=== PATIENT | female | born 1995 | race Caucasian/White ===

== ENCOUNTER 2019-10-13 21:58 | Emergency (ER) | payer OTHER, SELFPAY ==
[2019-10-13 22:30] VITALS: BP 110/68; PULSE 122; RESP 16; TEMP 36.5; O2SAT 96
--- NOTE | 2019-10-13 22:32 | ED.BACK ---
HPI - Back Pain/Injury General Chief Complaint: Back Pain/Injury Stated Complaint: back pain Source: patient Mode of arrival: ambulatory Limitations: no limitations History of Present Illness HPI Narrative: Patient presents with some history of suprapubic pain and right flank tenderness with some subjective fever and chills with dysuria with no hematuria does have some nausea with no shortness of breath no chest pain. MD elicited complaint: back pain Onset (ago): day(s) Timing: intermittent Severity: mild Similar Symptoms Previously: Yes Quality: burning Location: right flank Related Data Home Medications Medication Instructions Recorded Confirmed bupropion HCl [Wellbutrin XL] 150 mg PO QAM 10/13/19 10/13/19 clonazepam [Klonopin] 0.5 mg PO DAILY 10/13/19 10/13/19 estradiol 1 mg PO DAILY 10/13/19 10/13/19 hydrocodone-acetaminophen 1 tablet PO Q6H PRN 10/13/19 10/13/19 hydroxyzine HCl 10 mg PO QID PRN 10/13/19 10/13/19 metoprolol succinate 25 mg PO DAILY 10/13/19 10/13/19 quetiapine [Seroquel] 100 mg PO HS 10/13/19 10/13/19 Allergies Allergy/AdvReac Type Severity Reaction Status Date / Time No Known Allergies Allergy Verified 10/13/19 22:24 Review of Systems Review of Systems: All systems reviewed & are unremarkable except as noted in HPI and below PMFSH Past Medical History Medical History Patient denies medical problems Exam Const: General: no acute distress Orientation/consciousness: patient oriented x3 HENMT: Head: normal to inspection Eyes: Pupils: Equal, round and reactive pupils present Neck: Neck: normal visual inspection Chest: Chest palpation & inspection: normal inspection of the chest Resp: Effort & Inspection: normal respiratory effort Cardio: Rate: regular rate and tachycardic Rhythm: regular rhythm GI: Inspection: distended Auscultation: normal bowel sounds : General: Yes CVA tenderness (right flank) Skin: General skin exam: normal color Rashes: no rashes MDM - Back Pain/Injury Lab Data Labs: Lab Results 10/13/19 Range/Units 22:22 Urine Color Pending Urine Appearance Pending Urine pH Pending Ur Specific [place] Pending Urine Protein Pending Urine Glucose (UA) Pending Urine Ketones Pending Ur Blood (Man) Pending Urine Nitrate Pending Urine Bilirubin Pending Urine Urobilinogen Pending Leukocyte Esterase Rfl Pending Critical Care Time Critical Care Time Critical Care Time: No Discharge Plan Discharge Clinical Impression: UTI (urinary tract infection) Qualifiers: Urinary tract infection type: acute cystitis Hematuria presence: without hematuria Qualified Code(s): N30.00 - Acute cystitis without hematuria Patient Disposition: Home, Self-Care Condition: Stable Instructions: Antibiotic Form, Urinary Tract Infection in Women (ED) Additional Instructions: take medicine as prescribed and follow-up with primary care physician if symptoms persist or worsen. Prescriptions: New nitrofurantoin monohyd/m-cryst [Macrobid] 100 mg capsule 100 mg PO Q12H 7 Days Qty: 14 RF: 0 No Action hydrocodone-acetaminophen 5-325 mg Tablet 1 tablet PO Q6H PRN (Reason: Pain) RF: 0 clonazepam [Klonopin] 0.5 mg Tablet 0.5 mg PO DAILY RF: 0 quetiapine [Seroquel] 100 mg Tablet 100 mg PO HS RF: 0 estradiol 1 mg Tablet 1 mg PO DAILY RF: 0 metoprolol succinate 25 mg Tablet Extended Release 24 Hr 25 mg PO DAILY RF: 0 hydroxyzine HCl 10 mg Tablet 10 mg PO QID PRN (Reason: Anxiety) RF: 0 bupropion HCl [Wellbutrin XL] 150 mg Tablet Extended Release 24 Hr 150 mg PO QAM RF: 0 Follow-up/Referrals: Adams Ibarra M.D. [Primary Care Provider] - Time of Disposition: 22:54
[2019-10-13 22:33] LABS: Add Urine Microscopic? YES; Appearance Urine Cloudy (Clear); Bilirubin Urine Negative (Negative); Blood Urine Negative (Negative); Color Urine Yellow (Yellow); Glucose Urine UA Negative (Negative); Ketones Urine 1+ (Negative); Leukocyte Esterase Ur Trace LEU/UL (Negative); Nitrate Urine Positive (Negative); Protein Urine Trace (Negative); Specific Grav Ur 1.025 (1.010-1.020); pH Urine 7.5 (5.0-8.0)
[2019-10-13] MEDS: ONDANSETRON HCL ODT 4 MG TABLET PO (22:36)
[2019-10-13 22:37] LABS: Bacteria Urine 4+ /hpf; RBC Urine 0-2 /hpf (0-2); Squamous Epithelial Cell Urine Moderate /hpf (Few)
[2019-10-13] MEDS: SODIUM CHLORIDE 0.9% IV 1,000 ML 999 ML IV CONT (22:52)
[2019-10-13 23:29] VITALS: BP 108/58; PULSE 113; RESP 20; TEMP 36.6; O2SAT 100
== END 2019-10-13 23:31 | disposition home or self-care (01) ==
PROVIDERS: Emergency Provider Emergency Medicine; PCP Family Medicine
DX: N30.00 Acute cystitis without hematuria (principal)
CPT/HCPCS: 81001; 87077; 87086; 87088; 87186; 96365; 99283; 99284; A9270; J0696; J7030

== ENCOUNTER 2019-12-19 19:20 | Inpatient (IN) | payer OTHER, SELFPAY ==
--- NOTE | ~2019-12-19 | CT_ITS ---
EXAMINATION: CT abdomen pelvis wo con EXAM DATE: 12/19/2019 20:48 INDICATION: Nausea vomiting, hematuria. Right flank pain. Symptoms 3 days. TECHNIQUE: Spiral CT of the abdomen and pelvis was performed without contrast. Axial, coronal and sag ittal images were reviewed. The dose-length product (DLP) for this examination was 200.04 mGy-cm. T he exposure was tailored according to patient size (auto mA exposure control), and iterative reconstr uction (ASIR) was used as additional dose reduction technique. There is no prior study for compariso n. FINDINGS: There are 4 right-sided kidney stones measuring up to 3 mm in size. There is mild fat stran ding surrounding the right kidney, but no hydronephrosis or obstructing stone identified. Patient may have recently passed a ureteral stone, or could have an upper urinary tract infection. The left kidn ey is unremarkable. The uterus and ovaries are unremarkable, no adnexal mass. The bladder is collaps ed at time of imaging limiting evaluation. The liver, spleen, adrenal glands and pancreas are unrema rkable. Gallbladder is unremarkable. No biliary obstruction. There is no retroperitoneal or pelvic lymphadenopathy. Probable appendectomy. The stomach and small bowel are unremarkable. There is expected amount of co lonic stool. No free intraperitoneal gas. The heart is normal in size. There are no pericardial or pleural effusions. The lung bases are unremarkable. Bilateral femoral intramedullary rods. IMPRESSION: Small right nonobstructing nephrolithiasis. Mild nonspecific right perinephric fat strand ing which could indicate a recently passed ureteral stone or upper urinary tract infection, correlate with urinalysis. Reviewed, dictated and finalized at location A. IMPRESSION: Small right nonobstructing nephrolithiasis. Mild nonspecific right perinephric fat stranding which could indicate a recently passed ureteral stone or upper urinary tract infection, correlate with urinalysis.
[2019-12-19 19:38] VITALS: BP 118/52; PULSE 125; RESP 18; TEMP 37.1; O2SAT 100
[2019-12-19] MEDS: SODIUM CHLORIDE 0.9% IV 1,000 ML 999 ML IV CONT (20:04)
[2019-12-19] MEDS: KETOROLAC 30 MG/ML VIAL (*BKC) IV PUSH (20:04)
[2019-12-19] MEDS: ONDANSETRON INJ 4 MG/2 ML VIAL IV PUSH (20:05)
[2019-12-19 20:17] LABS: Appearance Urine Cloudy (Clear); Bilirubin Urine 1+ (Negative); Blood Urine Trace (Negative); Color Urine Yellow (Yellow); Glucose Urine UA Negative (Negative); Ketones Urine Negative (Negative); Nitrate Urine Positive (Negative); Protein Urine 2+ (Negative); Specific Grav Ur 1.015 (1.010-1.020); pH Urine 7.5 (5.0-8.0)
[2019-12-19 20:18] LABS: Add Urine Microscopic? YES; Bacteria Urine 3+ /hpf; Leukocyte Esterase Ur 2+ LEU/UL (Negative); Squamous Epithelial Cell Urine Moderate /hpf (Few); Urobilinogen Urine >=8.0 mg/dL (0.2-1.0); WBC Urine 51-75 /hpf (0-3)
[2019-12-19 20:20] LABS: Alanine Aminotransferase 36 U/L (14-59); Albumin Level 3.4 g/dL (3.4-5.0); Alkaline Phosphatase 123 U/L (46-116); Anion Gap 15.8 mmol/L (7-16); Aspartate Amino Transferase 30 U/L (15-37); Bilirubin,Total 0.8 mg/dL (0.00-1.00); Blood Urea Nitrogen 8 mg/dL (7-18); Carbon Dioxide 26 mmol/L (21-32); Chloride 93 mmol/L (98-108); Estimated CRCL calculation 70 ml/min; Estimated Glomerular Filt Rate > 60; Glucose 98 mg/dL (70-99); Hematocrit 36.8 % (35.0-49.0); Mean Corpuscular HGB Conc 35.3 g/dL (32.0-36.0); Mean Platelet Volume 10.6 fl (9.2-11.8); Osmolality Calculated 272 mOsm/kg (285-295); Platelet Count Result 216 K/mm3 (150-420); Potassium 2.8 mmol/L (3.5-5.1); Red Blood Count 4.49 M/mm3 (4.20-5.40); Red Cell Distribution Width 13.1 % (11.6-14.4); Sodium 132 mmol/L (136-145); Total Protein 8.4 g/dL (6.4-8.2); White Blood Count 6.4 K/mm3 (4.8-10.8)
[2019-12-19 20:21] LABS: Basophils Percent Auto 0.2 % (0.0-1.0); Eosinophils Percent Auto 0.5 % (1.0-6.0); Immature Granulocyte Absolute 0.03 K/mm3 (0.00-0.00); Immature Granulocyte Percent A 0.5 % (0.0-0.0); Lymphocytes Absolute Auto 1.32 K/mm3 (1.10-4.50); Lymphocytes Percent Auto 20.7 % (18.0-42.0); Monocytes Percent Auto 9.2 % (2.0-11.0); Neutrophils Absolute Auto 4.4 K/mm3 (1.7-7.2); Neutrophils Percent Auto 68.9 % (50.0-70.0)
[2019-12-19 20:22] LABS: Basophils Absolute Auto 0.01 K/mm3 (0.00-0.10); Eosinophils Absolute Auto 0.03 K/mm3 (0.02-0.50); Monocytes Absolute Auto 0.59 K/mm3 (0.10-0.90)
[2019-12-19 20:26] LABS: Lactic Acid 1.4 mmol/L (0.4-2.0)
[2019-12-19 20:28] LABS: Pregnancy On Board Control Positive; Specific Gravity Ur 1.015 (1.010-1.035); Urine Pregnancy Test Negative
--- NOTE | 2019-12-19 20:38 | ECG_ITS ---
Measurements Intervals [place] Rate: 111 P: 67 GA: 141 QRS: 97 QRSD: 92 T: 35 QT: 334 QTc: 454 Interpretive Statements SINUS TACHYCARDIA RIGHT AXIS DEVIATION BORDERLINE ST ABNORMALITY- INFERIOR LEADS BASELINE WANDER- I, II, III, AVF ABNORMAL ECG Electronically Signed On 12-20-2019 7:18:16 CDT by Dre Brice D.O.
[2019-12-19 20:40] LABS: Lipase 129 U/L (73-393)
--- NOTE | 2019-12-19 20:47 | ED.FEMALEGU ---
HPI - Female Genitourinary General Chief complaint: Urogenital-Female Stated complaint: fever,kidney pain,throwing up,body pain Source: patient Mode of arrival: ambulatory Limitations: no limitations History of Present Illness HPI Narrative: This is a 24-year-old female presents with some dysuria, body aches currently has no fever but some over the past 2 days has been having a low-grade temperature seen by her primary care physician and ordered a flu and COVID test which were negative. Currently there is mild nausea with no vomiting does have some suprapubic tenderness with bilateral flank tenderness, with no diarrhea constipation no shortness of breath no cough no chest pain or pressure. Patient was recently diagnosed with urinary tract infection approximately 1 to 2 months ago. Currently is taking metoprolol for tachycardia, and has a history of depression, and bipolar. MD elicited complaint: dysuria and back pain Pertinent past history: recurrent UTIs Onset (ago): day(s) Severity: moderate Female Urogenital Radiation: Suprapubic, L Flank and R Flank Severity scale (1-10): 8 Quality of pain: aching Consistency: constant Vaginal discharge: none Vaginal bleeding: none Urinary symptoms: Dysuria, Urgency, Frequency and Flank Pain Related Data Home Medications Medication Instructions Recorded Confirmed bupropion HCl [Wellbutrin XL] 150 mg PO QAM 10/13/19 12/19/19 metoprolol succinate 25 mg PO DAILY 10/13/19 12/19/19 quetiapine [Seroquel] 100 mg PO HS 10/13/19 12/19/19 bupropion HCl 300 mg PO DAILY 12/19/19 12/19/19 clonazepam 1 mg PO DAILY PRN 12/19/19 12/19/19 hydroxyzine pamoate 25 mg PO TID 12/19/19 12/19/19 quetiapine 400 mg PO HS 12/19/19 12/19/19 Allergies Allergy/AdvReac Type Severity Reaction Status Date / Time No Known Allergies Allergy Verified 10/13/19 22:24 Review of Systems Review of Systems: All systems reviewed & are unremarkable except as noted in HPI and below PMFSH Past Medical History Medical History (Updated 12/19/19 @ 21:03 by J Carlos Cline MD) Depression Tachycardia Exam Const: General: no acute distress and alert Nutritional Appearance: well nourished HENMT: Head: normal to inspection Eyes: Conjunctivae: conjunctivae normal Pupils: Equal, round and reactive pupils present EOM: EOMs intact bilaterally Neck: Neck: normal visual inspection Chest: Chest palpation & inspection: normal inspection of the chest Resp: Effort & Inspection: normal respiratory effort Auscultation: clear to auscultation bilaterally Cardio: Rate: tachycardic Rhythm: regular rhythm GI: GI Palp: Yes Soft to palpation : General: Yes no CVA tenderness Skin: General skin exam: normal color Rashes: no rashes Neuro: General: patient oriented x3, moves all extremities, no meningeal signs and no focal motor deficits Extrem: General: normal to inspection Psych: Mental Status: mental status grossly normal Course Vital Signs Vital signs: Vital Signs Temperature 37.1 C 12/19/19 19:38 Pulse Rate 125 H 12/19/19 19:38 Respiratory Rate 18 12/19/19 19:38 Blood Pressure 118/52 L 12/19/19 19:38 Pulse Oximetry 100 12/19/19 19:38 Temperature 37.1 C 12/19/19 19:38 Pulse Rate 125 H 12/19/19 19:38 Respiratory Rate 18 12/19/19 19:38 Blood Pressure 118/52 L 12/19/19 19:38 Pulse Oximetry 100 12/19/19 19:38 MDM - Female Genitourinary Lab Data Attestation: I reviewed the patient's lab results. Result diagrams: 12/19/19 19:58 12/19/19 19:58 Labs: Lab Results 12/19/19 12/19/19 12/19/19 Range/Units 19:46 19:58 19:58 WBC (4.8-10.8) K/mm3 RBC (4.20-5.40) M/mm3 Hgb (12.0-15.0) g/dL Hct (35.0-49.0) % MCV (78.0-102.0) fL MCH (27.0-31.0) pg MCHC (32.0-36.0) g/dL RDW (11.6-14.4) % Plt Count (150-420) K/mm3 MPV (9.2-11.8) fl Immature Gran % (Auto) (0.0-0.0) % Neut % (Auto) (50.
[2019-12-19] MEDS: KCL 20 MEQ/SW 100 ML 100 ML 50 MEQ IVPB (21:01)
[2019-12-19 21:32] VITALS: BP 123/80; PULSE 98; RESP 18; O2SAT 98
[2019-12-19 22:00] VITALS: BP 103/66; PULSE 97; RESP 18; TEMP 37.1; O2SAT 97
[2019-12-19] MEDS: SODIUM CHLORIDE 0.9% IV 1,000 ML 100 ML IV CONT (22:01)
[2019-12-19] MEDS: QUEtiapine FUMARATE 100 MG TABLET 400 MG PO (22:45)
[2019-12-19 23:26] VITALS: RESP 16
[2019-12-20] VITALS (15 sets, daily range): BP systolic 88–121; BP diastolic 30–58; PULSE 97–117; RESP 14–18; TEMP 36.9–38.9; O2SAT 95–98
[2019-12-20] MEDS: ACETAMINOPHEN 325 MG TABLET 650 MG PO ×3 (03:15→15:16)
[2019-12-20] MEDS: KETOROLAC 30 MG/ML VIAL (*BKC) IV PUSH (03:15)
[2019-12-20] MEDS: ONDANSETRON INJ 4 MG/2 ML VIAL IV PUSH ×3 (03:15→20:05)
[2019-12-20] MEDS: SODIUM CHLORIDE 0.9% IV 1,000 ML 999 ML IV CONT (05:19)
--- NOTE | 2019-12-20 05:20 | PC.NURSE ---
Dr. Cline notified of pt's low blood pressure and temperature. New orders received and noted.
[2019-12-20] MEDS: MAGNESIUM HYDROXIDE SUSP 30 ML UDC PO (05:21)
[2019-12-20 05:54] LABS: Basophils Absolute Auto 0.02 K/mm3 (0.00-0.10); Basophils Percent Auto 0.4 % (0.0-1.0); Eosinophils Absolute Auto 0.05 K/mm3 (0.02-0.50); Eosinophils Percent Auto 0.9 % (1.0-6.0); Hematocrit 30.6 % (35.0-49.0); Hemoglobin 10.5 g/dL (12.0-15.0); Immature Granulocyte Absolute 0.04 K/mm3 (0.00-0.00); Immature Granulocyte Percent A 0.7 % (0.0-0.0); Lymphocytes Absolute Auto 1.51 K/mm3 (1.10-4.50); Lymphocytes Percent Auto 26.4 % (18.0-42.0); Mean Corpuscular HGB Conc 34.3 g/dL (32.0-36.0); Mean Corpuscular Hemoglobin 28.8 pg (27.0-31.0); Mean Corpuscular Volume 84.1 fL (78.0-102.0); Mean Platelet Volume 10.8 fl (9.2-11.8); Monocytes Absolute Auto 0.59 K/mm3 (0.10-0.90); Monocytes Percent Auto 10.3 % (2.0-11.0); Neutrophils Absolute Auto 3.5 K/mm3 (1.7-7.2); Neutrophils Percent Auto 61.3 % (50.0-70.0); Platelet Count Result 161 K/mm3 (150-420); Red Blood Count 3.64 M/mm3 (4.20-5.40); Red Cell Distribution Width 13.3 % (11.6-14.4); White Blood Count 5.7 K/mm3 (4.8-10.8)
[2019-12-20 06:21] LABS: Alanine Aminotransferase 42 U/L (14-59); Albumin Level 2.5 g/dL (3.4-5.0); Alkaline Phosphatase 113 U/L (46-116); Anion Gap 14.8 mmol/L (7-16); Aspartate Amino Transferase 48 U/L (15-37); Bilirubin,Total 0.4 mg/dL (0.00-1.00); Blood Urea Nitrogen 11 mg/dL (7-18); Calcium 7.9 mg/dL (8.5-10.1); Carbon Dioxide 24 mmol/L (21-32); Chloride 101 mmol/L (98-108); Estimated CRCL calculation 85 ml/min; Estimated Glomerular Filt Rate > 60; Glucose 112 mg/dL (70-99); Osmolality Calculated 284 mOsm/kg (285-295); Potassium 2.8 mmol/L (3.5-5.1); Sodium 137 mmol/L (136-145); Total Protein 5.9 g/dL (6.4-8.2)
[2019-12-20 06:25] LABS: Thyroid Stimulating Hormone 2.18 uIU/mL (0.36-3.74)
[2019-12-20] MEDS: SODIUM CHLORIDE 0.9% IV 1,000 ML 125 ML IV CONT (07:40)
[2019-12-20] MEDS: hydrOXYzine pamoate 25 MG CAPSULE PO ×2 (09:16→21:33)
[2019-12-20] MEDS: buPROPion HCL XL (24 HR) 150 MG TABCR 450 MG PO (09:16)
[2019-12-20 09:28] LABS: Magnesium 1.8 mg/dL (1.8-2.4); Phosphorus 3.5 mg/dL (2.6-4.7)
[2019-12-20] MEDS: KCL 20 MEQ/SW 100 ML 100 ML 50 MEQ IVPB ×2 (09:29→11:34)
--- NOTE | 2019-12-20 09:54 | PC.NURSE ---
Pain worsening, states has not been able to keep her antidepressant down for x4 days did take today so concerned may get jittery from the high dose, advised to let us knwo and would alert hospitalist if this happens
--- NOTE | 2019-12-20 09:59 | PC.NURSE ---
Tylenol given for flank pain
--- NOTE | 2019-12-20 12:07 | PC.NURSE ---
Eating lunch, more comfortable, fluids infusing, denies pain at this time, second K rider started
[2019-12-20] MEDS: SODIUM CHLORIDE 0.9% IV 1,000 ML 250 ML IV CONT (12:26)
[2019-12-20] MEDS: POTASSIUM CHLORIDE 10 MEQ TABLET 40 MEQ PO ×2 (12:28→17:21)
[2019-12-20] MEDS: MAGNESIUM SULF 2 GM/WATER 50ML 2 GM/50 ML BAG IVPB (13:47)
[2019-12-20 14:12] LABS: Anion Gap 12.7 mmol/L (7-16); Blood Urea Nitrogen 5 mg/dL (7-18); Calcium 7.7 mg/dL (8.5-10.1); Carbon Dioxide 24 mmol/L (21-32); Chloride 107 mmol/L (98-108); Estimated CRCL calculation 103 ml/min; Estimated Glomerular Filt Rate > 60; Glucose 108 mg/dL (70-99); Osmolality Calculated 288 mOsm/kg (285-295); Potassium 3.7 mmol/L (3.5-5.1); Sodium 140 mmol/L (136-145)
--- NOTE | 2019-12-20 14:29 | PM.IMHP ---
H&P: HPI History of Present Illness Chief complaint: fever,kidney pain,throwing up,body pain <Lydia Andres, MOTOR PATROL OPERATOR - Last Filed: 12/20/19 15:55> Narrative: Anne Rosario is a 24 year old female admitted with fever, dysuria, back pain/kidney pain /flank pain, vomiting, body aches. She stated that she had had fever nausea for the last 4 days. But when she tried to see her primary care physician for a fever, they immediately swabbed her for COVID and influenza and sent her home for self isolation. Her influenza testing resulted as negative and her COVID testing was negative as well. She has no shortness of breath, no cough, no chest pain, no sore throat. She stated that she knew this was a kidney stone, as she has had them before. She presented in the ER with some dysuria, some urgency, some frequency, some body aches, but no fever. She told the ER physician over the past 2 days she had been having a low-grade fever. When she was examined in the emergency room, she had some mild nausea but no vomiting. She also had some suprapubic tenderness with bilateral flank tenderness. Her pain in the Emergency Room seem to be a constant ache. There was no diarrhea present, no constipation, no shortness of breath, no cough, no chest pain or pressure. She informed the ED physician that she had been diagnosed with a urinary tract infection about 1-2 months prior. She is currently taking 25 mg daily metoprolol for tachycardia, and has a history of depression, UTIs, and bipolar. Her EKG at admission showed tachycardia, sinus tach with a rate of 111 beats per minute. She was admitted with acute pyelonephritis, hypotension/hypovolumia, acute UTI, hematuria, and acute hypokalemia. Her potassium was 2.8 at admission. She was treated with a dose of potassium overnight. Her potassium was again 2.8 this morning. She was treated with 40 of IV K as well as 40 of oral K this morning, with a repeat potassium level schedule for this afternoon. The glucose was 98 admission and her lactic acid was 1.4, alkaline phosphatase was elevated at 123. Her UA was cloudy positive for nitrates, with 50-75 of WBCs, and 3+ bacteria. Her test was negative. Her white count was 6.4 yesterday and then today 5.7. Her lipase was normal at 129 With a history of substance abuse and recovery, we will do our best to avoid narcotics such as [place] or Percocet or morphine or Dilaudid. We will use oral and or IV Tylenol as well as rare occasional Toradol. We will avoid tramadol at this time. Her 4 kidney stones are 3 mm and smaller, so it is doubtful that she will need lithotripsy any time soon. <Lydia Andres MOTOR PATROL OPERATOR - Last Filed: 12/20/19 15:55> Review of Systems Review of Systems: All systems reviewed & are unremarkable except as noted in HPI and below <Lydia Andres NP - Last Filed: 12/20/19 15:55> Constitutional: Constitutional: Reports as per HPI, Reports body ache(s), Reports chills, Denies excessive sweating, Reports fatigue, Denies headache(s), Denies increased appetite, Reports lethargy, Denies snoring, Reports weakness and Denies weight gain <Lydia Andres NP - Last Filed: 12/20/19 15:55> Eyes: Eyes: Reports as per HPI, Reports no additional eye complaints, Denies exophthalmos, Denies diplopia, Denies floaters and Denies loss of peripheral vision <Lydia Andres MOTOR PATROL OPERATOR - Last Filed: 12/20/19 15:55> ENT: Reports as per HPI, Reports Normal hearing present, Denies dysphagia, Denies facial pain, Denies headache(s), Denies epistaxis, Denies nasal congestion, Denies nasal discharge, Denies odynophagia and Denies tinnitus <Lydia Andres NP - Last Filed: 12/20/19 15:55> Cardiovascular: Cardiovascular: Reports as per HPI, Denies chest pain, Denies diaphoresis, Denies pedal edema, Denies leg edema, Denies lightheadedness and Denies palpitations <Lydia Andres MOTOR PATROL OPERATOR - Last Filed: 12/20/19 15:55> Respiratory: Respiratory: Denies as per HPI, Denies no additional respirator
--- NOTE | 2019-12-20 15:15 | PC.NURSE ---
tylenol given for pain
--- NOTE | 2019-12-20 15:34 | PC.NURSE ---
zofran given for nausea, up to void, no dizzyness
--- NOTE | 2019-12-20 17:04 | PC.NURSE ---
Feeling better, chills gone, pain improved, meal provided, fluids infusing
[2019-12-20] MEDS: SODIUM CHLORIDE 0.9% IV 1,000 ML 150 ML IV CONT (19:01)
--- NOTE | 2019-12-20 20:00 | PC.NURSE ---
pt vomiting call placed to ERP to give Zofran early
[2019-12-20] MEDS: ACETAMINOPHEN 500 MG TABLET 1000 MG PO (20:12)
[2019-12-20] MEDS: QUEtiapine FUMARATE 100 MG TABLET 400 MG PO (21:33)
[2019-12-21] VITALS (8 sets, daily range): BP systolic 92–97; BP diastolic 44–64; PULSE 76–110; RESP 16–20; TEMP 36.2–38.1; O2SAT 96–99
--- NOTE | 2019-12-21 00:15 | PC.NURSE ---
Sleeping, awakens easily to name called, states she is tired. No pain or discomfort. Complains of intermitten lightheadness since she has been here. Discussed safety and to sit up slowly and call for assist if dizzy.
[2019-12-21] MEDS: SODIUM CHLORIDE 0.9% IV 1,000 ML 150 ML IV CONT ×3 (01:27→17:52)
[2019-12-21] MEDS: ACETAMINOPHEN 500 MG TABLET 1000 MG PO ×3 (04:09→23:33)
[2019-12-21 05:39] LABS: Hematocrit 29.2 % (35.0-49.0); Hemoglobin 9.7 g/dL (12.0-15.0); Mean Corpuscular HGB Conc 33.2 g/dL (32.0-36.0); Mean Corpuscular Hemoglobin 28.4 pg (27.0-31.0); Mean Corpuscular Volume 85.6 fL (78.0-102.0); Mean Platelet Volume 10.2 fl (9.2-11.8); Platelet Count Result 169 K/mm3 (150-420); Red Blood Count 3.41 M/mm3 (4.20-5.40); Red Cell Distribution Width 14.1 % (11.6-14.4); White Blood Count 5.9 K/mm3 (4.8-10.8)
[2019-12-21 05:49] LABS: Anion Gap 14.3 mmol/L (7-16); Blood Urea Nitrogen 4 mg/dL (7-18); Calcium 7.8 mg/dL (8.5-10.1); Carbon Dioxide 22 mmol/L (21-32); Chloride 106 mmol/L (98-108); Estimated CRCL calculation 118 ml/min; Estimated Glomerular Filt Rate > 60; Glucose 108 mg/dL (70-99); Magnesium 1.6 mg/dL (1.8-2.4); Osmolality Calculated 285 mOsm/kg (285-295); Potassium 3.3 mmol/L (3.5-5.1); Sodium 139 mmol/L (136-145)
[2019-12-21] MEDS: hydrOXYzine pamoate 25 MG CAPSULE PO ×2 (09:16→21:35)
[2019-12-21] MEDS: buPROPion HCL XL (24 HR) 150 MG TABCR 450 MG PO (09:16)
[2019-12-21 09:32] LABS: Alanine Aminotransferase 48 U/L (14-59); Albumin Level 2.3 g/dL (3.4-5.0); Alkaline Phosphatase 102 U/L (46-116); Aspartate Amino Transferase 33 U/L (15-37); Bilirubin Direct 0.1 mg/dL (0-0.2); Bilirubin,Total 0.2 mg/dL (0.00-1.00); Total Protein 5.3 g/dL (6.4-8.2)
[2019-12-21] MEDS: KCL 20 MEQ/SW 100 ML 100 ML 50 MEQ IVPB (09:40)
--- NOTE | 2019-12-21 10:27 | PM.IMPN ---
Progress Note: A&P Assessment and Plan (1) Pyelonephritis: Code(s): N12 - Tubulo-interstitial nephritis, not specified as acute or chronic Status: Acute Assessment and Plan: admitted with fever, dysuria, back pain/kidney pain /flank pain, vomiting, body aches. She stated that she had had fever nausea for the last 4 days. presented in the ER with some dysuria, some urgency, some frequency, some body aches, but no fever. suprapubic tenderness with bilateral flank tenderness. had been diagnosed with a urinary tract infection about 1-2 months prior. her UA on this admission was cloudy, positive for nitrates, with 50-75 of WBCs, and 3+ bacteria. white count was 6.4 yesterday and then 5.7 and then 5.9 no fevers noted overnight since admission Urine + for E.coli awaiting sensitivities, blood cultures are pending her urine culture from October of this year showed E coli that was sensitive to Rocephin she is currently on IV Rocephin and will continue that her CT scan yesterday showed small right sided nonobstructing kidney stones, 4 of them 3 mm or smaller, with some evidence of inflammation and stranding that she either had passed a stone and/or had a UTI. regarding pain control: With a history of substance abuse and recovery, we will do our best to avoid narcotics such as [place] or Percocet or morphine or Dilaudid. We will use oral and or IV Tylenol as well as rare occasional Toradol. We will avoid tramadol at this time. Her 4 kidney stones are 3 mm and smaller, so it is doubtful that she will need lithotripsy any time soon. (2) UTI (urinary tract infection): Qualifiers: Hematuria presence: without hematuria Urinary tract infection type: site unspecified Qualified Code(s): N39.0 - Urinary tract infection, site not specified Code(s): N39.0 - Urinary tract infection, site not specified Status: Acute Assessment and Plan: admitted with fever, dysuria, back pain/kidney pain /flank pain, vomiting, body aches. She stated that she had had fever nausea for the last 4 days. presented in the ER with some dysuria, some urgency, some frequency, some body aches, but no fever. suprapubic tenderness with bilateral flank tenderness. had been diagnosed with a urinary tract infection about 1-2 months prior. her UA on this admission was cloudy, positive for nitrates, with 50-75 of WBCs, and 3+ bacteria. white count remains WNL no fevers noted overnight since admission Urine + for E.coli awaiting sensitivities, blood cultures are pending her urine culture from October of this year showed E coli that was sensitive to Rocephin she is currently on IV Rocephin and will continue that (3) Acute hypokalemia: Code(s): E87.6 - Hypokalemia Status: Acute Assessment and Plan: she was complaining of fevers and nausea and vomiting at home and likely not able to take in enough to keep herself hydrated or to keep her nutrition status up. potassium was 2.8 at admission. She was treated with a dose of potassium overnight. Her potassium was 3.3 this morning. Ordered 20 of IV KCL and 20 BID of oral potassium for 1 day. morning labs ordered to continue K level monitoring continuous cardiac telemetry monitoring in place (4) Tachycardia: Code(s): R00.0 - Tachycardia, unspecified Status: Acute Assessment and Plan: currently taking 25 mg daily metoprolol for tachycardia, history of depression, UTIs, and bipolar. EKG at admission showed tachycardia, sinus tach with a rate of 111 beats per minute. placed on cardiac telemetry monitoring continuously heart rate was in the 90s this morning monitoring electrolytes and replenish as needed, (5) Hypovolemia dehydration: Code(s): E86.1 - Hypovolemia Status: Acute Assessment and Plan: she was complaining of fevers and nausea and vomiting at home and likely not able to take in enough to keep herself
[2019-12-21] MEDS: MAGNESIUM SULF 4 GM/WATER100ML 4 GM/100 ML BAG IVPB (11:42)
[2019-12-21] MEDS: POTASSIUM CHLORIDE 10 MEQ TABLET 20 MEQ PO (16:58)
[2019-12-21] MEDS: QUEtiapine FUMARATE 100 MG TABLET 400 MG PO (21:34)
[2019-12-21] MEDS: POTASSIUM CHLORIDE 20 MEQ TABLET PO (21:35)
--- NOTE | 2019-12-21 21:50 | PM.EVENT ---
Event Note Event Note Event Note: Notes and labs reviewed. Case discussed with Lydia Wasserman. Pt. has no nausea or vomiting. Has had right flank pain x 9 days which is ~ 2/10 but not changing. #4 - 3 mm right ureteral non-obstructing stones on CT scan E coli culture. Sens. pending. Defervescence after fever this AM. I reviewed and agree with her note. If pain persists advise follow up with urology next week.
[2019-12-22] VITALS: BP 101/56; PULSE 92; RESP 14; TEMP 36.4; O2SAT 100
[2019-12-22 04:00] VITALS: PULSE 75
[2019-12-22 05:38] VITALS: BP 94/56; PULSE 74; RESP 14; TEMP 35.9; O2SAT 100
[2019-12-22 05:43] LABS: Hematocrit 30.7 % (35.0-49.0); Hemoglobin 10.1 g/dL (12.0-15.0); Mean Corpuscular HGB Conc 32.9 g/dL (32.0-36.0); Mean Corpuscular Hemoglobin 28.7 pg (27.0-31.0); Mean Corpuscular Volume 87.2 fL (78.0-102.0); Platelet Count Result 205 K/mm3 (150-420); Red Blood Count 3.52 M/mm3 (4.20-5.40); Red Cell Distribution Width 14.6 % (11.6-14.4); White Blood Count 4.7 K/mm3 (4.8-10.8)
[2019-12-22 05:59] LABS: Anion Gap 13.2 mmol/L (7-16); Blood Urea Nitrogen 5 mg/dL (7-18); Calcium 8.4 mg/dL (8.5-10.1); Carbon Dioxide 25 mmol/L (21-32); Chloride 108 mmol/L (98-108); Estimated CRCL calculation 127 ml/min; Estimated Glomerular Filt Rate > 60; Glucose 91 mg/dL (70-99); Osmolality Calculated 291 mOsm/kg (285-295); Potassium 4.2 mmol/L (3.5-5.1); Sodium 142 mmol/L (136-145)
[2019-12-22 08:00] VITALS: BP 104/66; PULSE 86; RESP 16; TEMP 36.5
[2019-12-22] MEDS: buPROPion HCL XL (24 HR) 150 MG TABCR 450 MG PO (08:20)
[2019-12-22] MEDS: POTASSIUM CHLORIDE 20 MEQ TABLET 40 MEQ PO (08:21)
[2019-12-22 08:30] VITALS: BP 104/66; PULSE 86; RESP 16; TEMP 36.5; O2SAT 98
[2019-12-22] MEDS: MAGNESIUM CHLORIDE 64 MG TABLET PO (08:33)
--- NOTE | 2019-12-22 09:20 | PM.DS ---
DS: Diagnosis Admitting Diagnosis Admitting Diagnosis: Tubulo-interstitial nephritis, not specified as acute or chronic Discharge Diagnosis (1) Pyelonephritis: Code(s): N12 - Tubulo-interstitial nephritis, not specified as acute or chronic Status: Acute Assessment and Plan: admitted with fever, some urgency, some frequency, some body aches, dysuria, suprapubic tenderness with bilateral flank tenderness/back pain/kidney pain, vomiting, body aches. She stated that she had had fever nausea for the last 4 days. had been diagnosed with a urinary tract infection about 1-2 months prior. her UA on this admission was cloudy, positive for nitrates, with 50-75 of WBCs, and 3+ bacteria. white count was 6.4 then 5.7 and then 5.9 then 4.7 no fevers noted overnight for last 24 hours. her urine culture from October of this year showed E coli that was sensitive to Rocephin, she received IV Rocephin during this hospitalization. Urine + for E.coli with sensitivity to Ceftriaxone, Cefepime, and Cefazazolin. Will discharge her on oral Cefdinir for [address] scan showed small right sided nonobstructing kidney stones, 4 of them 3 mm or smaller, with some evidence of inflammation and stranding that she either had passed a stone and/or had a UTI. regarding pain control: With a history of substance abuse and recovery, we will do our best to avoid narcotics such as [place] or Percocet or morphine or Dilaudid. We will use oral and or IV Tylenol as well as rare occasional Toradol. We will avoid tramadol at this time. Her 4 kidney stones are 3 mm and smaller, so it is doubtful that she will need lithotripsy any time soon. at dsicharge, Instructed her to use over the counter TYLENOL and/or MOTRIN as needed for pain at home. (2) UTI (urinary tract infection): Qualifiers: Hematuria presence: without hematuria Urinary tract infection type: site unspecified Qualified Code(s): N39.0 - Urinary tract infection, site not specified Code(s): N39.0 - Urinary tract infection, site not specified Status: Acute Assessment and Plan: UTI plan is same as above for Pyelonephritis (3) Acute hypokalemia: Code(s): E87.6 - Hypokalemia Status: Acute Assessment and Plan: RESOLVED. Replenished as needed using oral and IV dosing. she was complaining of fevers and nausea and vomiting at home and likely not able to take in enough to keep herself hydrated or to keep her nutrition status up. potassium was 2.8 at admission. Her potassium was 4.2 this morning. (4) Tachycardia: Code(s): R00.0 - Tachycardia, unspecified Status: Acute Assessment and Plan: Currently CONTROLLED. currently taking 25 mg daily metoprolol at home for tachycardia, history of depression, UTIs, and bipolar. EKG at admission showed tachycardia, sinus tach with a rate of 111 beats per minute. placed on cardiac telemetry monitoring continuously heart rate was in the 90s this morning monitoring electrolytes and replenish as needed, holding due to HYPOTENSION (5) Hypovolemia dehydration: Code(s): E86.1 - Hypovolemia Status: Acute Assessment and Plan: RESOLVED with IVFs. she was complaining of fevers and nausea and vomiting at home and likely not able to take in enough to keep herself hydrated her blood pressures back in October during her admission then showed a systolic blood pressure of 103 up to over 110 , so that seems to be her baseline. Her blood pressures have improved . will continue to treat her with IV fluids continuously to 100/hr placed orders to the nursing staff to contact the MD right away if her systolic blood pressures less than 90 so that the physician may order a fluid bolus as needed. restart her home metoprolol dosing as soon as possible replenished her electrolytes encourage oral hydration and oral nutrition DS: Summary Time Spent with Patient Time attestation: Stacie
--- NOTE | 2019-12-22 13:39 | PC.NURSE ---
iv out. declines now order for metoprolol. will take when she gets home. went over dc instructions. voices an understanding. denies any pain. encouraged to call Monday for follow and referral. amb to personal vehicle of boyfriend. gait steady
--- NOTE | 2019-12-23 00:15 | PM.EVENT ---
Event Note Event Note Event Note: Patient states he feels much better today. Ate some breakfast. No vomiting or fever overnight. Regular rate rhythm without murmur. Lungs are clear to auscultation bilaterally.Mild right flank tenderness without rebound or guarding. No rigidity. Extremities are warm dry and pink. No edema. Home today on oral medication with urology follow-up. I have examined the patient reviewed the chart. I discussed the patient's care with A Dmitry ALBERTS and agree with her assessment and plan.
== END 2019-12-22 13:43 | disposition home or self-care (01) | DRG 465 ==
LOC: CHSED 21:03 → CHS2ND 21:18
PROVIDERS: Nurse Practitioner; Admitting Provider Emergency Medicine; Emergency Provider Emergency Medicine; PCP Family Medicine; Visit Provider Emergency Medicine
DX: N20.0 Calculus of kidney (principal); N12 Tubulo-interstitial nephritis, not specified as acute or chronic; N39.0 Urinary tract infection, site not specified; E86.1 Hypovolemia; E87.6 Hypokalemia; R00.0 Tachycardia, unspecified
CPT/HCPCS: 36415; 74176; 80048; 80053; 80076; 81001; 81025; 83605; 83690; 83735; 84100; 84443; 85025; 85027; 87040; 87077; 87086; 87088; 87186; 93005; 96361; 96365; 96366; 96368; 96375; 99284; 99285; A9270; G0378; G0379; J0696; J1885; J2405; J3475; J3480; J7030

== ENCOUNTER 2020-02-24 20:44 | Emergency (ER) | payer OTHER, SELFPAY ==
--- NOTE | ~2020-02-24 | CT_ITS ---
EXAMINATION: CT abdomen pelvis wo con DATE: 02/24/2020 21:43 INDICATION: Right flank pain TECHNIQUE: Computed tomography (CT) of the abdomen and pelvis was performed without intravenous contr ast. The dose-length product (DLP) was 188.73 mGy-cm. Automated exposure control and iterative recons truction technique were employed. COMPARISON: 12/19/2019 FINDINGS: The lung bases are clear. The heart size is normal. The liver, spleen, pancreas, gallbladde r, and adrenal glands are normal. The left kidney is unremarkable. There is a 4 mm stone at the right ureterovesicular junction which causes moderate right hydroureteronephrosis. There are multiple nono bstructing stones in the right kidney. The largest measures 9 mm in the lower pole and has significan tly increased in size since the recent comparison. No pathologically enlarged abdominal or pelvic lym ph nodes are identified. There is no free intraperitoneal gas or evidence of bowel obstruction. There is a 3.6 cm cyst in the left ovary. There are partially imaged intramedullary rods in femurs. IMPRESSION: 1. 4 mm stone of the right ureterovesicular junction causing moderate right hydroureteronephrosis. 2. Nonobstructing right nephrolithiasis with interval development of a 9 mm stone in the right kidney . Reviewed, dictated and finalized at location A. IMPRESSION: 1. 4 mm stone of the right ureterovesicular junction causing moderate right hyd roureteronephrosis. 2. Nonobstructing right nephrolithiasis with interval development of a 9 mm sto ne in the right kidney.
[2020-02-24 21:03] VITALS: BP 111/70; PULSE 70; RESP 16; TEMP 36.6; O2SAT 96
[2020-02-24 21:14] LABS: Hematocrit 37.9 % (35.0-49.0); Hemoglobin 12.7 g/dL (12.0-15.0); Mean Corpuscular HGB Conc 33.5 g/dL (32.0-36.0); Mean Corpuscular Hemoglobin 29.3 pg (27.0-31.0); Mean Corpuscular Volume 87.3 fL (78.0-102.0); Mean Platelet Volume 9.9 fl (9.2-11.8); Platelet Count Result 238 K/mm3 (150-420); Red Blood Count 4.34 M/mm3 (4.20-5.40); Red Cell Distribution Width 13.2 % (11.6-14.4); White Blood Count 6.2 K/mm3 (4.8-10.8)
[2020-02-24 21:15] LABS: Add Urine Microscopic? YES; Appearance Urine Sl Cloudy (Clear); Bilirubin Urine Negative (Negative); Blood Urine 1+ (Negative); Color Urine Yellow (Yellow); Glucose Urine UA Negative (Negative); Ketones Urine Negative (Negative); Leukocyte Esterase Ur 1+ (Negative); Nitrate Urine Positive (Negative); Protein Urine Negative (Negative); Specific Grav Ur >= 1.030 (1.010-1.020)
[2020-02-24 21:22] LABS: Bacteria Urine 4+ /hpf; Squamous Epithelial Cell Urine Moderate /hpf (Few); WBC Urine 16-20 /hpf (0-3)
[2020-02-24 21:29] LABS: Alanine Aminotransferase 28 U/L (14-59); Albumin Level 4.4 g/dL (3.4-5.0); Alkaline Phosphatase 86 U/L (46-116); Anion Gap 14.8 mmol/L (7-16); Aspartate Amino Transferase 21 U/L (15-37); Bilirubin,Total 0.8 mg/dL (0.00-1.00); Blood Urea Nitrogen 14 mg/dL (7-18); Calcium 8.9 mg/dL (8.5-10.1); Carbon Dioxide 24 mmol/L (21-32); Chloride 105 mmol/L (98-108); Estimated CRCL calculation 73 ml/min; Estimated Glomerular Filt Rate > 60; Glucose 106 mg/dL (70-99); Osmolality Calculated 290 mOsm/kg (285-295); Potassium 3.8 mmol/L (3.5-5.1); Sodium 140 mmol/L (136-145); Total Protein 8.2 g/dL (6.4-8.2)
[2020-02-24] MEDS: ONDANSETRON INJ 4 MG/2 ML VIAL IV PUSH (21:36)
[2020-02-24] MEDS: KETOROLAC 30 MG/ML VIAL (*BKC) IV PUSH (21:36)
[2020-02-24] MEDS: SODIUM CHLORIDE 0.9% IV 1,000 ML 999 ML IV CONT (21:45)
--- NOTE | 2020-02-24 22:19 | PC.NURSE ---
IV stopped, infused 600ml, patient to go home
--- NOTE | 2020-02-24 22:20 | ED.ABDPAIN ---
HPI - Abdominal Pain General Chief Complaint: Abdominal Pain Stated Complaint: side/back pain Source: patient Mode of arrival: ambulatory Limitations: no limitations History of Present Illness HPI narrative: This is a 24-year-old female presents with some right flank pain radiating into her right lower quadrant patient has pain level about 8/10 with some nausea with dysuria and currently no hematuria, there is no fever chills no shortness of breath no chest pain or pressure. Patient has a history of kidney stones. MD elicited complaint: abdominal pain and flank pain Onset (ago): hour(s) Pain Consistency: intermittent Location: RLQ and R flank Severity: moderate Pain scale (0-10): 8 Quality: aching Radiation: R flank Migration to: RLQ Exacerbating factors: nothing Relieving factors: nothing Related Data Home Medications Medication Instructions Recorded Confirmed bupropion HCl [Wellbutrin XL] 150 mg PO QAM 10/13/19 02/24/20 metoprolol succinate 25 mg PO DAILY 10/13/19 02/24/20 quetiapine [Seroquel] 100 mg PO HS 10/13/19 02/24/20 bupropion HCl 300 mg PO DAILY 12/19/19 02/24/20 clonazepam 1 mg PO DAILY PRN 12/19/19 02/24/20 hydroxyzine pamoate 25 mg PO TID 12/19/19 02/24/20 quetiapine 400 mg PO HS 12/19/19 02/24/20 Allergies Allergy/AdvReac Type Severity Reaction Status Date / Time codeine [From M-CLEAR] AdvReac Unknown unknown Verified 12/20/19 16:14 guaifenesin [From M-CLEAR] AdvReac Unknown unknown Verified 12/20/19 16:14 hydrocodone [From M-CLEAR] AdvReac Unknown unknown Verified 12/20/19 16:15 hydromorphone [From Dilaudid] AdvReac Unknown Unknown Verified 12/20/19 16:15 potassium guaiacolsulfonate AdvReac Unknown unknown Verified 12/20/19 16:15 [From M-CLEAR] Review of Systems Review of Systems: All systems reviewed & are unremarkable except as noted in HPI and below PMFSH Past Medical History Medical History Depression Tachycardia Social History Social History Smoking packs per day: 0.5 Smoking cigarettes per day: 10.0 Years smoked: 10 Smoking pack-years: 5.00 Smoking status: Current every day smoker Tobacco type: cigarettes Second hand tobacco smoke exposure: Yes Alcohol intake: former Substance use: never Last use: 2017 Gender identity (if verbalized by the patient): Female Sexual Orientation (if Verbalized by the Patient): Straight or Heterosexual Spiritual care concerns: No Exam Const: General: no acute distress Orientation/consciousness: patient oriented x3 HENMT: Head: normal to inspection Eyes: Conjunctivae: conjunctivae normal Pupils: Equal, round and reactive pupils present Neck: Neck: normal visual inspection, no lymphadenopathy and no meningeal signs Chest: Chest palpation & inspection: normal inspection of the chest Resp: Effort & Inspection: normal respiratory effort Auscultation: clear to auscultation bilaterally Cardio: Rate: regular rate Rhythm: regular rhythm GI: GI Palp: Yes Soft to palpation : General: Yes CVA tenderness and Yes no CVA tenderness Urinary Catheter: Urinary Catheter: patent and draining Back/Spine/Pelvis: Back: CVA tenderness Skin: General skin exam: normal color Rashes: no rashes Neuro: General: patient oriented x3, moves all extremities, no meningeal signs and no focal motor deficits Extrem: General: normal to inspection Psych: Appearance: grossly normal Mental Status: mental status grossly normal Course Course Emergency Course: reassessment of patient, pain level has markedly increased with IM Toradol, patient also received p.o. clindamycin and is feeling considerably better. Vital Signs Vital signs: Vital Signs Temperature 36.6 C 02/24/20 21:03 Pulse Rate 70 02/24/20 21:03 Respiratory Rate 16 02/24/20 21:03 Blood Pressure 111/70 02/24/20 21:03 Pulse Oximetry 96 02/24/20 21
[2020-02-24] MEDS: TAMSULOSIN HCL 0.4 MG CAPSULE PO (22:22)
[2020-02-24 22:41] VITALS: BP 140/70; PULSE 70; RESP 18; TEMP 36.1; O2SAT 95
== END 2020-02-24 22:42 | disposition home or self-care (01) ==
PROVIDERS: Emergency Provider Emergency Medicine; PCP Family Medicine
DX: N20.0 Calculus of kidney (principal)
CPT/HCPCS: 36415; 74176; 80053; 81001; 85027; 96365; 96375; 99283; 99284; A9270; J0696; J1885; J2405; J7030

== ENCOUNTER 2021-01-17 22:55 | Emergency (ER) | payer OTHER, SELFPAY ==
--- NOTE | ~2021-01-17 | CT_ITS ---
EXAMINATION: CT abdomen pelvis wo con EXAM DATE: 01/18/2021 00:32 INDICATION: Left flank pain. Obstructive nephropathy. TECHNIQUE: Spiral CT of the abdomen and pelvis was performed without contrast. Axial, coronal and sag ittal images were reviewed. The dose-length product (DLP) for this examination was 172.77 mGy-cm. T he exposure was tailored according to patient size (auto mA exposure control), and iterative reconstr uction (ASIR) was used as additional dose reduction technique. Comparison is made to prior examinatio n from 02/24/2020. FINDINGS: There is a large right renal stone measuring up to 4 cm calcium the renal pelvis and some c alyces, appearance consistent with staghorn calculus. Other nephrolithiasis, significant increase in stone burden compared to one year ago. Mild right hydroureteronephrosis without obstructing stone id entified. Mild thickening of the right ureter urothelium, could be from chronic inflammation or upper urinary tract infection. No left nephrolithiasis. The uterus is unremarkable. The bladder is unre markable. The liver, spleen, adrenal glands and pancreas are unremarkable. Gallbladder is unremarka ble. No biliary obstruction. There is no retroperitoneal or pelvic lymphadenopathy. There are surgical changes consistent with appendectomy. The stomach and small bowel are unremarkab le. There is expected amount of colonic stool. No free intraperitoneal gas. The heart is normal in size. There are no pericardial or pleural effusions. The lung bases are unremarkable. The bones are unremarkable. IMPRESSION: Right renal stone appearance consistent with staghorn calculus. Additional right nephroli thiasis. Mild to moderate hydroureteronephrosis without obstructing ureteral stone. Correlate with ur inalysis. Reviewed, dictated and finalized at location B. IMPRESSION: Right renal stone appearance consistent with staghorn calculus. Add itional right nephrolithiasis. Mild to moderate hydroureteronephrosis without o bstructing ureteral stone. Correlate with urinalysis.
[2021-01-17 23:00] VITALS: BP 120/70; PULSE 62; RESP 20; TEMP 36.9; O2SAT 97
[2021-01-17] MEDS: KETOROLAC 30 MG/ML VIAL (*BKC) IV PUSH (23:35)
[2021-01-17] MEDS: ONDANSETRON INJ 4 MG/2 ML VIAL IV PUSH (23:35)
[2021-01-17 23:37] LABS: Add Urine Microscopic? YES; Appearance Urine Sl Cloudy (Clear); Basophils Absolute Auto 0.01 K/mm3 (0.00-0.10); Basophils Percent Auto 0.1 % (0.0-1.0); Bilirubin Urine Negative (Negative); Blood Urine 3+ (Negative); Glucose Urine UA Negative (Negative); Hematocrit 37.8 % (35.0-49.0); Hemoglobin 12.6 g/dL (12.0-15.0); Immature Granulocyte Absolute 0.06 K/mm3 (0.00-0.00); Immature Granulocyte Percent A 0.6 % (0.0-0.0); Ketones Urine 3+ (Negative); Leukocyte Esterase Ur 2+ LEU/UL (Negative); Lymphocytes Absolute Auto 0.81 K/mm3 (1.10-4.50); Lymphocytes Percent Auto 7.8 % (18.0-42.0); Mean Corpuscular HGB Conc 33.3 g/dL (32.0-36.0); Mean Corpuscular Hemoglobin 27.8 pg (27.0-31.0); Mean Corpuscular Volume 83.3 fL (78.0-102.0); Mean Platelet Volume 9.6 fl (9.2-11.8); Monocytes Absolute Auto 0.69 K/mm3 (0.10-0.90); Monocytes Percent Auto 6.6 % (2.0-11.0); Neutrophils Absolute Auto 8.9 K/mm3 (1.7-7.2); Neutrophils Percent Auto 84.9 % (50.0-70.0); Nitrate Urine Positive (Negative); Platelet Count Result 199 K/mm3 (150-420); Protein Urine 2+ (Negative); Red Blood Count 4.54 M/mm3 (4.20-5.40); Red Cell Distribution Width 13.9 % (11.6-14.4); White Blood Count 10.4 K/mm3 (4.8-10.8)
[2021-01-17 23:40] LABS: Pregnancy On Board Control Positive; Urine Pregnancy Test Negative
[2021-01-17 23:43] LABS: Bacteria Urine 2+ /hpf; Color Urine Amber (Yellow); Squamous Epithelial Cell Urine Few /hpf (Few); WBC Urine >75 /hpf (0-3)
[2021-01-17 23:55] LABS: Lactic Acid Reflex 1.5 mmol/L (0.4-2.0)
[2021-01-17] MEDS: SODIUM CHLORIDE 0.9% IV 1,000 ML 999 ML IV CONT (23:57)
[2021-01-18 00:01] LABS: Alanine Aminotransferase 35 U/L (14-59); Alkaline Phosphatase 94 U/L (46-116); Anion Gap 16 mmol/L (8-16); Aspartate Amino Transferase 29 U/L (15-37); Bilirubin,Total 1.8 mg/dL (0.00-1.00); Blood Urea Nitrogen 15 mg/dL (7-18); Calcium 9.1 mg/dL (8.5-10.1); Carbon Dioxide 22 mmol/L (21-32); Chloride 93 mmol/L (98-108); Estimated CRCL calculation 57 ml/min; Estimated Glomerular Filt Rate 54; Glucose 119 mg/dL (70-99); Osmolality Calculated 273 mOsm/kg (285-295); Potassium 2.6 mmol/L (3.5-5.1); Sodium 131 mmol/L (136-145); Total Protein 8.9 g/dL (6.4-8.2)
[2021-01-18 00:02] LABS: Lipase 32 U/L (73-393)
[2021-01-18 00:35] LABS: Magnesium 1.8 mg/dL (1.8-2.4)
[2021-01-18 00:40] VITALS: TEMP 36.8
--- NOTE | 2021-01-18 00:43 | ED.NAVMDI ---
HPI - Nausea/Vomiting/Diarrhea General Chief complaint: Fever Stated complaint: fever,back ache Time Seen by Provider: 01/17/21 23:10 Source: patient and family Mode of arrival: ambulatory Limitations: no limitations History of Present Illness HPI Narrative: This young woman states she has had symptoms of a UTI for the past several days with frequency, but not a lot of urgency or dysuria. She states she has had frequent UTIs. She has had fever and chills for the last two days. She has felt presyncopal at home and has had nausea and vomiting for the last two days. 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 ) Associated symptoms: other (pain radiating down left leg to knee) Related Data Home Medications Medication Instructions Recorded Confirmed metoprolol succinate 25 mg PO DAILY 10/13/19 01/17/21 quetiapine [Seroquel] 300 mg PO HS 10/13/19 01/17/21 bupropion HCl 300 mg PO DAILY 12/19/19 01/17/21 clonazepam 1 mg PO DAILY PRN 12/19/19 01/17/21 hydroxyzine pamoate 25 mg PO TID 12/19/19 01/17/21 Allergies Allergy/AdvReac Type Severity Reaction Status Date / Time codeine [From M-CLEAR] AdvReac Unknown unknown Verified 12/20/19 16:14 guaifenesin [From M-CLEAR] AdvReac Unknown unknown Verified 12/20/19 16:14 hydrocodone [From M-CLEAR] AdvReac Unknown unknown Verified 12/20/19 16:15 hydromorphone [From Dilaudid] AdvReac Unknown Unknown Verified 12/20/19 16:15 potassium guaiacolsulfonate AdvReac Unknown unknown Verified 12/20/19 16:15 [From M-CLEAR] Review of Systems Constitutional: Constitutional: Reports chills, Reports fatigue and Reports fever(s) Eyes: Eyes: Reports no additional eye complaints ENT: Reports system reviewed and no additional complaints, except as documented Cardiovascular: Cardiovascular: Reports no additional cardiovascular complaints Respiratory: Respiratory: Reports no additional respiratory complaints Gastrointestinal: Gastrointestinal: Reports nausea and Reports vomiting Genitourinary: Genitourinary: Reports no additional female genitourinary complaints Musculoskeletal: Musculoskeletal: Reports no additional musculoskeletal complaints Integumentary/Breasts: Skin/Breast: Reports system reviewed and no additional complaints, except as docu Neurologic: Reports system reviewed and no additional complaints, except as documented Psychiatric: Psychiatric: Reports no additional psychiatric complaints Endocrine: Endocrine: Reports no additional endocrine complaints Hematologic/Lymphatic: Hematologic/Lymphatic: Reports no additional hematologic/lymphatic complaints Allergic/Immunologic: Allergic/Immunologic: Reports no additional allergic/immunologic complaints PMFSH Past Medical History Medical History (Updated 01/18/21 @ 02:44 by Josh Montoya MD) Depression Renal calculi Tachycardia Surgical History Surgical History (Updated 01/18/21 @ 01:01 by Josh Montoya MD) History of orthopedic surgery Family History Family History (Updated 01/18/21 @ 01:02 by Josh Montoya MD) Father Diabetes mellitus Social History Social History Smoking packs per day: 0.5 Smoking cigarettes per day: 10.0 Years smoked: 10 Smoking pack-years: 5.00 Smoking status: Current every day smoker Tobacco type: cigarettes Second hand tobacco smoke exposure: Yes Alcohol intake: former Substance use: never Last use: 2017 Gender identity (if verbalized by the patient): Female Spiritual care concerns: No Exam Const: General: no acute distress Orientation/consciousness: pat
[2021-01-18] MEDS: POTASSIUM BICARBONATE 25 MEQ TABEF 50 MEQ PO (00:46)
[2021-01-18] MEDS: DEXAMETHASONE SOD PHOS INJ 4 MG/ML VIAL 12 MG IV PUSH (01:05)
[2021-01-18] MEDS: GENTAMICIN SULFATE INJ 240 MG in DEXTROSE 5% 100 ML 100 MG IVPB (01:06)
[2021-01-18 01:30] VITALS: BP 110/67; PULSE 94; RESP 20; TEMP 36.6; O2SAT 97
--- NOTE | 2021-01-18 02:06 | PC.NURSE ---
0145 DR ESCAMILLA IN WITH PT, SIGNIFICANT OTHER AND MOTHER DISCUSSING CT RESULTS. 0200 CALL TO [facility], SPOKE WITH [facility] FOR TRANSFER. AWAITING CALL BACK
[2021-01-18] MEDS: NICOTINE (*PBKC) 21 MG PATCH 1 PATCH (02:10)
[2021-01-18 02:23] VITALS: BP 103/63; PULSE 110; RESP 20; TEMP 36.8; O2SAT 98
--- NOTE | 2021-01-18 02:31 | PC.NURSE ---
[facility] CALLED FOR TRANSFER TO [facility]. AWAITING ARRIVAL
--- NOTE | 2021-01-18 03:04 | PC.NURSE ---
[facility] HERE, REPORT GIVEN TO EMS STAFF. PT ALERT AND ORIENTED. PT LOADED TO EMS COT. ESTEVAN=[employer]
== END 2021-01-18 03:13 | disposition short-term general hospital (02) ==
PROVIDERS: Emergency Provider Emergency Medicine
DX: N12 Tubulo-interstitial nephritis, not specified as acute or chronic (principal); N20.0 Calculus of kidney; M54.42 Lumbago with sciatica, left side
CPT/HCPCS: 36415; 74176; 80053; 81001; 81025; 83605; 83690; 83735; 85025; 87040; 87077; 87086; 87088; 87186; 96361; 96365; 96367; 96374; 96375; 99285; A9270; J0696; J1100; J1580; J1885; J2405; J7030

== ENCOUNTER 2021-01-18 12:10 | Observation (INO) | payer OTHER, SELFPAY ==
[2021-01-18] VITALS (13 sets, daily range): BP systolic 83–115; BP diastolic 44–73; PULSE 66–105; RESP 13–22; TEMP 36.2–36.8; O2SAT 99–100; BMI 22.4
--- NOTE | ~2021-01-18 | XR_ITS ---
EXAMINATION: XR retrograde pyelo w/stent RT DATE: 01/18/2021 13:06 INDICATION: Right internal ureteral stent placement TECHNIQUE: Fluoroscopic images from a right internal ureteral stent placement are submitted for hyun lazaro. 14 seconds of fluoroscopy time. 33 fluoroscopic images. FINDINGS: Preliminary retrograde pyelogram demonstrates mild dilation of the right filling defect in the proximal ureter, consistent with a UPJ stone. There is a right double-J internal ureteral stent projecting in expected position, with proximal [place] loop at the level of the renal pelvis and distal loop in the pelvis within the bladder lumen. IMPRESSION: 1. Right internal ureteral stent placement. Please refer to real-time procedural findings for detai ls. Reviewed, dictated and finalized at location A. IMPRESSION: 1. Right internal ureteral stent placement. Please refer to real-time procedu ral findings for details.
--- NOTE | 2021-01-18 03:40 | PC.NURSE ---
This patient, Anne Rosario, was admitted to [facility] Surg Room 320-01. Patient/family oriented to hospital policies and general routines including ID bracelet, bed and alarms, visiting hours, pain management, procedures, bathroom and other care routines, personal items, smoking policy, room service/diet, and visiting hours. Information on how to activate the Rapid Response Team has been discussed. Patient/Family are encouraged to report perceived risks to care and to ask questions if they do not understand what they are told or what they should do.
[2021-01-18] MEDS: SODIUM CHLORIDE 0.9% IV 1,000 ML 100 ML IV CONT (06:29)
[2021-01-18 06:35] LABS: Basophils Percent Auto 0.1 % (0.2-1.2); Hematocrit 37.2 % (37.0-47.0); Hemoglobin 12.5 g/dL (12.0-15.0); Immature Granulocyte Absolute 0.03 K/mm3 (0.00-0.031); Immature Granulocyte Percent A 0.4 % (0-0.5); Lymphocytes Absolute Auto 0.53 K/mm3 (0.9-3.2); Lymphocytes Percent Auto 6.2 % (18.3-44.2); Mean Corpuscular HGB Conc 33.6 g/dl (32-36); Mean Corpuscular Hemoglobin 28.7 pg (26-34); Mean Corpuscular Volume 85.3 fl (80-100); Mean Platelet Volume 10.4 fl (7.4-10.4); Monocytes Absolute Auto 0.2 K/mm3 (0.1-0.6); Neutrophils Absolute Auto 7.8 K/mm3 (1.3-6.7); Neutrophils Percent Auto 91.3 % (45.5-73.1); Platelet Count Result 196 k/mm3 (150-375); Red Blood Count 4.36 M/mm3 (4.2-5.4); Red Cell Distribution Width 14.1 % (11.5-14.5); White Blood Count 8.5 K/mm3 (4.5-10.0)
[2021-01-18 06:43] LABS: Anion Gap 13 mmol/L (8-16); Blood Urea Nitrogen 15 mg/dL (7-17); Calcium 9.3 mg/dL (8.4-10.2); Carbon Dioxide 21 mmol/L (22-30); Chloride 105 mmol/L (98-107); Estimated CRCL calculation 83 ml/min; Estimated Glomerular Filt Rate > 60; Glucose 136 mg/dL (65-105); Lactic Acid Reflex 1.2 mmol/L (0.7-2.1); Potassium 3.9 mmol/L (3.4-5.0); Sodium 139 mmol/L (137-145)
--- NOTE | 2021-01-18 08:59 | PM.IMHP ---
H&P: HPI History of Present Illness Date/Time: 01/18/21 08:59 Chief Complaint: Fever, chills, back pain Narrative: 25yo female with hx of kidney stones transferred here for fever, chills and back pain. Patient's symptoms began about 2-3 days ago. She developed left-sided back pain that radiated to her buttock and thigh. This seemed to be worse with movement. Specifically with bending and sitting on a toilet seat. She also has developed headache with fever up to 103.7 at home. She has been having malaise, fatigue and cold chills. She has been having slight dysuria. She has history of UTIs. She does have hematuria but she is still spotting toward the end of her period. She also had nausea and vomiting as well as shortness of breath. She does have asthma but denies wheezing. She does require her inhaler 2 times a week on average for her asthma. Patient has a history of kidney stones with a procedure to remove a kidney stone when she was 10 years old. Mostly she passes her kidney stones on her own. Last time this happened was a year ago. Patient denies any chest pain or palpitations. No diarrhea. She did take Excedrin and ibuprofen for the pain with benefit. She presented to the emergency room at outside hospital. In the ED, she was hemodynamically stable. CBC was normal. Her potassium was 2.6 with a creatinine 1.2. Bilirubin level was elevated 1.8. Lipase is normal. Total protein was elevated 8.9. UA was consistent with UTI. Urine test was negative. CT of the abdomen pelvis without contrast showed a large right renal stone measuring 4 cm in the renal pelvis consistent with staghorn. She had other right renal stones that were nonobstructive. She also had mild right hydroureteronephrosis without obstructing stone identified. Mild thickening of the right ureter. No left nephrolithiasis. Gallbladder was unremarkable. Lung bases were clear. She was treated with dexamethasone, IV fluids, gentamicin,, Zofran and Toradol. Potassium was replaced. Patient was transferred to our facility for further management. Repeat potassium is normal and creatinine is 0.8 now. Patient still with the left-sided back pain but better after taking a hot shower this morning. Review of Systems Review of Systems: All systems reviewed & are unremarkable except as noted in HPI and below PMFSH Past Medical History Medical History (Updated 01/19/21 @ 09:50 by Jerry Domínguez MD) Anxiety Asthma Bipolar 1 disorder, depressed Renal calculi cystoscopy with stone retrieval age 10yo; hx of stones with spont passage Tachycardia Surgical History Surgical History History of orthopedic surgery Patient's 'hips turned out' requiring bilateral LE adry placements at age 15yo; had subsequent surgery to remove screws Hx of appendectomy Hx of meniscectomy of right knee Approx 2019 Family History Family History Father Diabetes mellitus Mother Breast cancer Kidney stone Social History Social History Social History: 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 She smokes half a pack a day for the past 9 years. She drinks 2 alcoholic drinks per month on average. 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 She lives at home with her fiance. His children are with them half the time. Patient is hopefully going to have her own 3 children with her full-time in the near future. She has 2 cats. She is a full code. She nominates her mother to be the individual would make medical decisions for her if she is unable. Smoking packs per day: 0.5 Smoking cigarettes per day: 10.0 Years smoked: 7 Smoking pack-years: 3.50 Smoking status: Current every day smoker Tobacco type: cigarettes Second hand tobacco smoke exposur
[2021-01-18] MEDS: buPROPion HCL XL (24 HR) 150 MG TABCR 300 MG PO (09:25)
[2021-01-18] MEDS: ENOXAPARIN 40 MG/0.4 ML SYRINGE SUB-Q (09:25)
[2021-01-18] MEDS: LACTATED RINGERS 1,000 ML 30 ML IV CONT (11:40)
--- NOTE | 2021-01-18 11:50 | WPDANESEPPF ---
Anes - Initial Pre Proc Eval Procedure: Operation Date: 01/18/21 13:30 Proposed Procedures p Cystoscopy,Right Retrograde Pyelogram,Right Stent Placement - Chino Aguilar MD Date/Time: 01/18/21 11:50 Surgeon: Partha Wilburn MD Pre Op Diagnosis: Pyelonephritis, Nephrolithiasis Patient Data Age: 25 Gender: F Height: 1.65 m Weight: 61.1 kg Last Vital Signs Temp 36.2 C L 01/18/21 11:45 Pulse 91 01/18/21 11:45 Resp 22 H 01/18/21 03:45 BP 96/73 L 01/18/21 11:45 Pulse Ox 100 01/18/21 11:45 Allergies Allergy/AdvReac Type Severity Reaction Status Date / Time No Known Allergies Allergy Verified 01/18/21 03:51 Home Medications Medication Instructions Recorded Confirmed Type quetiapine [Seroquel] 300 mg PO HS 10/13/19 01/18/21 History bupropion HCl 300 mg PO DAILY 12/19/19 01/18/21 History clonazepam 1 mg PO DAILY PRN 12/19/19 01/18/21 History hydroxyzine pamoate 25 mg PO TID PRN 12/19/19 01/18/21 History albuterol sulfate 2 puff INHALATION Q4-6H PRN 01/18/21 01/18/21 History dextroamphetamine-amphetamine 20 mg PO DAILY PRN 01/18/21 01/18/21 History Laboratory Tests 01/18/21 01/18/21 01/18/21 06:19 06:19 06:19 WBC 8.5 K/mm3 K/mm3 (4.5-10.0) RBC 4.36 M/mm3 M/mm3 (4.2-5.4) Hgb 12.5 g/dL g/dL (12.0-15.0) Hct 37.2 % % (37.0-47.0) MCV 85.3 fl fl (80-100) MCH 28.7 pg pg (26-34) MCHC 33.6 g/dl g/dl (32-36) RDW 14.1 % % (11.5-14.5) Plt Count 196 k/mm3 k/mm3 (150-375) MPV 10.4 fl fl (7.4-10.4) Immature Gran % (Auto) 0.4 % % (0-0.5) Neut % (Auto) 91.3 % H % (45.5-73.1) Lymph % (Auto) 6.2 % L % (18.3-44.2) Haines % (Auto) 2.0 % L % (2.6-8.5) Eos % (Auto) 0.0 % % (0-4.4) Baso % (Auto) 0.1 % L % (0.2-1.2) Lymph # (Auto) 0.53 K/mm3 L K/mm3 (0.9-3.2) Haines # (Auto) 0.2 K/mm3 K/mm3 (0.1-0.6) Eos # (Auto) 0.0 K/mm3 K/mm3 (0-0.3) Baso # (Auto) 0.0 K/mm3 K/mm3 (0.0-0.1) Abs Immat Gran (auto) 0.03 K/mm3 K/mm3 (0.00-0.031) Absolute Neuts (auto) 7.8 K/mm3 H K/mm3 (1.3-6.7) Absolute Nucleated RBC 0.0 K/mm3 K/mm3 (0.0-0.012) Nucleated RBC % 0.0 % % (0.0-0.2) Sodium 139 mmol/L mmol/L (137-145) Potassium 3.9 mmol/L mmol/L (3.4-5.0) Chloride 105 mmol/L mmol/L (98-107) Carbon Dioxide 21 mmol/L L mmol/L (22-30) Anion Gap 13 mmol/L mmol/L (8-16) BUN 15 mg/dL mg/dL (7-17) Creatinine 0.80 mg/dL mg/dL (0.7-1.0) Estim Creat Clear Calc 83 ml/min ml/min Estimated GFR > 60 (59 - ) Glucose 136 mg/dL H mg/dL (65-105) Lactic Acid 1.2 mmol/L mmol/L (0.7-2.1) Calcium 9.3 mg/dL mg/dL (8.4-10.2) Patient hx anesthesia problems: none Family hx anesthesia problems: none [facility] Past Medical History Medical History (Updated 01/18/21 @ 09:17 by Jerry Domínguez MD) Anxiety Asthma Bipolar 1 disorder, depressed Renal calculi cystoscopy with stone retrieval age 10yo; hx of stones with spont passage Tachycardia Surgical History Surgical History History of orthopedic surgery Patient's 'hips turned out' requiring bilateral LE adry placements at age 15yo; had subsequent surgery to remove screws Hx of appendectomy Hx of meniscectomy of right knee Approx 2019 Family History Family History Father Diabetes mellitus Mother Breast cancer Kidney stone Social History Social History Social History: 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 She smokes half a pack a day for the past 9 years. She drinks 2 alcoholic drinks per month on av
--- NOTE | 2021-01-18 12:25 | WPDURCON ---
Assessment and Plan Assessment and plan (1) Staghorn calculus: Code(s): N20.0 - Calculus of kidney Status: Acute Assessment and Plan: Plan to go to the OR today with Dr. Aguilar for an attempted, cystoscopy, right ureterosocpy with stent placement, right retrograde pyelogram. Obtain consent, keep NPO. D/t the nature of the staghorn stone extending into the proximal right ureter, it may be difficult to place a stent, if Dr. Aguilar is unable to do so she would need a right nephrostomy tube placed. This stone will need definitive stone management with PCNL at [facility] d/t our group not accepting her insurance. This can be arranged as an outpatient for an office visit to further evaluate and schedule PCNL at [place] after discharge. (2) UTI (urinary tract infection): Qualifiers: Hematuria presence: without hematuria Urinary tract infection type: site unspecified Qualified Code(s): N39.0 - Urinary tract infection, site not specified Code(s): N39.0 - Urinary tract infection, site not specified Status: Acute Assessment and Plan: Continue IV antibiotics, tailor to culture results. Patient will likely improve with stent or nephrostomy tube placement, however her recurrent UTI's are d/t her staghorn stone which needs to be addressed to decrease her UTI's and intermittent pain. Urology Consult Note HPI Date Seen: 01/18/21 Requesting Physician: Partha Wilburn MD Primary Care Provider: UNKNOWN,DOCTOR Consult Narrative Narrative: Anne Rosario is a 25 year old female who presented to the ER this morning with symptoms of a UTI for the past 3 days, that include, fever of 103 at home, pelvic pain and urinary frequency as well as flank pain bilaterally. She states she has frequent UTI's and kidney stones since she was a child. She has not had surgery before on the stones. She is tachycardic, tachypneic and hypotensive today as well has having a UA that highly suggests a UTI, urine culture is pending. WBC is normal at 8.5 and creatinine is also normal at 0.80. She is afebrile at this time. Her CT scan shows a right staghorn stone that extends into the proximal ureter and additional right renal stones distally, with moderate hydronephrosis. She also has blood cultures pending at this time. She has not had an appetite since feeling ill as well. Review of Systems Cardiovascular: Cardiovascular: Denies chest pain Respiratory: Respiratory: Reports no additional respiratory complaints Gastrointestinal: Gastrointestinal: Reports abdominal pain, Reports nausea and Denies vomiting Genitourinary: Genitourinary: Denies hematuria, Denies dysuria, Reports pelvic pain, Reports flank pain and Reports urinary urgency PMFSH Past Medical History Medical History Anxiety Asthma Bipolar 1 disorder, depressed Renal calculi cystoscopy with stone retrieval age 10yo; hx of stones with spont passage Tachycardia Surgical History Surgical History History of orthopedic surgery Patient's 'hips turned out' requiring bilateral LE adry placements at age 15yo; had subsequent surgery to remove screws Hx of appendectomy Hx of meniscectomy of right knee Approx 2019 Family History Family History Father Diabetes mellitus Mother Breast cancer Kidney stone Social History Social History Social History: 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 She smokes half a pack a day for the past 9 years. She drinks 2 alcoholic drinks per month on average. 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 She lives at home with her fiance. His children are with them half the time. Patient is hopefully going to have her own 3 children with her full-time in
--- NOTE | 2021-01-18 12:40 | WPDHPUPDATE1 ---
History and Physical Update Update Date/Time: 01/18/21 12:40 History and Physical has been reviewed, including an updated exam of the patient. There are NO changes in the patient's condition. Risks, benefits, and alternatives have been discussed and questions answered. Patient agrees to proceed with procedure.
[2021-01-18] MEDS: LIDOCAINE HCL 2% GEL UROJET 10 ML PKG MUCOUS MEM (13:02)
--- NOTE | 2021-01-18 13:08 | P.OP_ITS ---
Procedure Note - Detailed Date of Procedure 01/18/21 Pre-op Diagnosis Pyelonephritis, right staghorn stone phrolithiasis Post-op Diagnosis same Procedure Performed Cystoscopy, right retrograde pyelogram, right ureteral stent placement Surgeon Chino Aguilar MD Anesthesia general Indications This is a with abnormal urinalysis, History of fever, and a large right staghorn stone. She is here today for stent placement. She understands I will not be removing the stone. She will need definitive stone management in the future Findings Large staghorn stone Description of Procedure She has correctly identified. Informed consent obtained. She from the operating room. She was given general anesthesia. She was prepped and draped in a sterile fashion. Time-out performed. She was on appropriate antibiotics. Business Center Representative revealed a large staghorn stone on the right. Bladder was otherwise normal. She had purulent urine consistent with infection. I the gentle retrograde pyelogram on the right. She had mild hydronephrosis. Stone was seen in renal pelvis and lower poles. Contrast was seen to fill the rest the kidney. I placed a Glidewire to the upper pole the kidney. I then placed a 4.8 variable length stent. Proximal coil was in the upper pole kidney. Distal coil in the bladder. Bladder was drained. She was awakened transferred to PACU in stable condition. Implants 4.8 variable length stent Estimated Blood Loss 0 Urine Output 0 Drains Yes (4.8 variable length stent) Packing No Pathology none sent Complications No immediate complications Condition stable Disposition PACU
[2021-01-18] MEDS: fentaNYL CITRATE INJ (*CRX) 100 MCG/2 ML VIAL 25 MCG IV PUSH ×2 (14:09→14:25)
[2021-01-18] MEDS: HYDROcodone/acetaminophen (*CRX) 5-325 MG TABLET 1 TAB PO (14:49)
[2021-01-18] MEDS: clonazePAM (*CRX) 0.5 MG TABLET 1 MG PO (14:51)
[2021-01-18] MEDS: PHENAZOPYRIDINE HCL 100 MG TABLET 200 MG PO (17:32)
[2021-01-18] MEDS: OXYBUTYNIN CHLORIDE 5 MG TABLET PO (17:32)
[2021-01-18] MEDS: QUEtiapine FUMARATE 100 MG TABLET 300 MG PO (20:46)
[2021-01-19] VITALS: BP 93/51; PULSE 67; RESP 16; TEMP 36.3; O2SAT 100
[2021-01-19 04:00] VITALS: BP 95/55; PULSE 72; RESP 18; TEMP 36.6; O2SAT 100
[2021-01-19] MEDS: SODIUM CHLORIDE 0.9% IV 1,000 ML 100 ML IV CONT (05:58)
[2021-01-19 06:14] LABS: Hematocrit 30.1 % (37.0-47.0); Hemoglobin 9.9 g/dL (12.0-15.0); Immature Granulocyte Absolute 0.03 K/mm3 (0.00-0.031); Immature Granulocyte Percent A 0.4 % (0-0.5); Lymphocytes Absolute Auto 1.13 K/mm3 (0.9-3.2); Lymphocytes Percent Auto 16.3 % (18.3-44.2); Mean Corpuscular HGB Conc 32.9 g/dl (32-36); Mean Corpuscular Volume 85.3 fl (80-100); Mean Platelet Volume 9.9 fl (7.4-10.4); Monocytes Absolute Auto 0.6 K/mm3 (0.1-0.6); Monocytes Percent Auto 8.1 % (2.6-8.5); Neutrophils Absolute Auto 5.2 K/mm3 (1.3-6.7); Neutrophils Percent Auto 75.2 % (45.5-73.1); Platelet Count Result 164 k/mm3 (150-375); Red Blood Count 3.53 M/mm3 (4.2-5.4); Red Cell Distribution Width 14.6 % (11.5-14.5); White Blood Count 6.9 K/mm3 (4.5-10.0)
[2021-01-19 06:26] LABS: Alanine Aminotransferase 19 U/L (4-35); Albumin Level 3.3 g/dL (3.5-5.1); Alkaline Phosphatase 58 U/L (38-126); Anion Gap 9 mmol/L (8-16); Aspartate Amino Transferase 19 U/L (14-36); Bilirubin,Total 0.4 mg/dL (0.2-1.3); Blood Urea Nitrogen 18 mg/dL (7-17); Calcium 8.4 mg/dL (8.4-10.2); Carbon Dioxide 21 mmol/L (22-30); Chloride 111 mmol/L (98-107); Estimated CRCL calculation 109 ml/min; Estimated Glomerular Filt Rate > 60; Glucose 139 mg/dL (65-105); Sodium 141 mmol/L (137-145)
--- NOTE | 2021-01-19 07:32 | P.PNAN_ITS ---
Anes - Prog Note Post-Op Date/Time: 01/19/21 07:32 Cardiovascular status: normal Respiratory status: normal Airway patency: baseline Mental status: baseline Post-Op hydration status: normal Vital Signs: Last Vital Signs Temp 36.6 C 01/19/21 04:00 Pulse 72 01/19/21 04:00 Resp 18 01/19/21 04:00 BP 95/55 L 01/19/21 04:00 Pulse Ox 100 01/19/21 04:00 Pain Score (VAS): 0/10. Patient resting in bed at time of assessment, appears comfortable. I/O: Intake & Output 01/18/21 01/18/21 01/19/21 15:59 23:59 07:59 Intake Total 450 1870 780 Output Total 0 650 Balance 450 1870 130 Laboratory Tests 01/19/21 05:59 01/19/21 05:59 01/18/21 01/19/21 01/19/21 21:32 05:59 05:59 WBC 6.9 RBC 3.53 L Hgb 9.9 L Hct 30.1 L MCV 85.3 MCH 28.0 MCHC 32.9 RDW 14.6 H Plt Count 164 MPV 9.9 Immature Gran % (Auto) 0.4 Neut % (Auto) 75.2 H Lymph % (Auto) 16.3 L [place] % (Auto) 8.1 Eos % (Auto) 0.0 Baso % (Auto) 0.0 L Lymph # (Auto) 1.13 [place] # (Auto) 0.6 Eos # (Auto) 0.0 Baso # (Auto) 0.0 Abs Immat Gran (auto) 0.03 Absolute Neuts (auto) 5.2 Absolute Nucleated RBC 0.0 Nucleated RBC % 0.0 Sodium 141 Potassium 4.0 Chloride 111 H Carbon Dioxide 21 L Anion Gap 9 BUN 18 H Creatinine 0.60 L Estim Creat Clear Calc 109 Estimated GFR > 60 Glucose 139 H Calcium 8.4 Total Bilirubin 0.4 AST 19 ALT 19 Alkaline Phosphatase 58 Total Protein 7.0 Albumin 3.3 L Ur Random Creatinine Pending Ur Random Calcium Pending Calcium/Creat Ratio Pending Post-procedural complaints: none Patient Feedback: Patient satisfied with anesthetic care.
[2021-01-19 08:00] VITALS: BP 100/52; PULSE 84; RESP 18; TEMP 36.4; O2SAT 99
[2021-01-19] MEDS: HYDROcodone/acetaminophen (*CRX) 5-325 MG TABLET 1 TAB PO ×3 (08:30→20:38)
[2021-01-19] MEDS: PHENAZOPYRIDINE HCL 100 MG TABLET 200 MG PO ×3 (08:32→18:02)
[2021-01-19] MEDS: buPROPion HCL XL (24 HR) 150 MG TABCR 300 MG PO (08:32)
[2021-01-19] MEDS: ENOXAPARIN 40 MG/0.4 ML SYRINGE SUB-Q (08:32)
[2021-01-19] MEDS: OXYBUTYNIN CHLORIDE 5 MG TABLET PO ×3 (08:33→18:02)
--- NOTE | 2021-01-19 08:49 | WPDUROPN2 ---
Progress Note: A&P Assessment and Plan (1) Pyelonephritis: Code(s): N12 - Tubulo-interstitial nephritis, not specified as acute or chronic Status: Acute (2) Calculus of kidney and ureter: Code(s): N20.2 - Calculus of kidney with calculus of ureter Status: Acute Assessment and Plan: Fortunately, tolerating stent well. Await final urine culture results. Subjective Subjective Date/Time Seen: 01/19/21 08:49 Tolerating stent with minimal discomfort Review of Systems Cardiovascular: Cardiovascular: Denies chest pain, Denies lightheadedness, Denies palpitations and Denies dyspnea Respiratory: Respiratory: Denies dyspnea Gastrointestinal: Gastrointestinal: Denies diarrhea, Denies nausea and Denies vomiting Genitourinary: Genitourinary: Denies hematuria and Denies dysuria Endocrine: Endocrine: Denies palpitations Exam Const: General: no acute distress Resp: Effort & Inspection: normal respiratory effort GI: Inspection: non-distended GI Palp: No abdominal tenderness and No Guarding due to palpation present (GI) Auscultation: normal bowel sounds Objective Data Vital Signs Vital Signs: Vital Signs - 24 hr 01/18/21 11:45 01/18/21 13:11 01/18/21 13:25 Temperature 97.2 F L 97.9 F Pulse Rate 91 71 68 Respiratory Rate 16 17 Blood Pressure 96/73 L 85/44 L 90/49 L Pulse Oximetry 100 99 99 01/18/21 13:37 01/18/21 13:50 01/18/21 14:00 Temperature Pulse Rate 66 83 105 H Respiratory Rate 18 18 18 Blood Pressure 83/51 L 93/66 L 93/66 L Pulse Oximetry 99 100 100 01/18/21 14:16 01/18/21 14:45 01/18/21 15:00 Temperature 97.9 F 97.9 F Pulse Rate 85 90 94 Respiratory Rate 13 16 16 Blood Pressure 109/72 102/59 L 115/69 Pulse Oximetry 100 100 100 01/18/21 15:30 01/18/21 16:15 01/18/21 20:00 Temperature 97.9 F 98.0 F 98.3 F Pulse Rate 92 94 88 Respiratory Rate 18 16 18 Blood Pressure 99/64 L 110/65 84/62 L Pulse Oximetry 100 100 100 01/19/21 00:00 01/19/21 04:00 01/19/21 08:00 Temperature 97.4 F L 97.8 F 97.6 F Pulse Rate 67 72 84 Respiratory Rate 16 18 18 Blood Pressure 93/51 L 95/55 L 100/52 L Pulse Oximetry 100 100 99 Intake/Output Intake/Output: Intake & Output 01/16/21 01/17/21 01/18/21 01/19/21 23:59 23:59 23:59 23:59 Intake Total 2370 780 Output Total 0 650 Balance 2370 130 Meds/Results Medications: Active Medications Generic Name Dose Route Start Last Admin Trade Name Freq PRN Reason Stop Dose Admin Acetaminophen 650 mg 01/18/21 05:11 Acetaminophen 325 Mg Tablet PO Q4H PRN Mild Pain (1-3) or Fever Hydrocodone Bitart/Acetaminophen 1 tab 01/18/21 14:34 01/19/21 08:30 Hydrocodone/Acetaminophen (*Crx) 5-325 Mg Tablet PO 1 tab Q6H PRN Administration Pain Rated 4-6 Al Hydrox/Mg Hydrox/Simethicone 30 ml 01/18/21 05:11 Mag Hydrox/Al Hydrox/Simeth 30 Ml Udc PO QID PRN Dyspepsia Albuterol 2 puff 01/18/21 05:09 Albuterol Sulfate (*Sp) Aerosol 1 Puff INHALATION Q4-6H PRN Shortness Of Breath Bupropion HCl 300 mg 01/18/21 09:00 01/19/21 08:32 Bupropion Hcl Xl (24 Hr) 150 Mg Tabcr PO 300 mg DAILY YESENIA Administration Clonazepam 1 mg 01/18/21 05:09 01/18/21 14:51 Clonazepam (*Crx) 0.5 Mg Tablet PO 1 mg DAILY PRN Administration Anxiety Enoxaparin Sodium 40 mg 01/18/21 09:00 01/19/21 08:32 Enoxaparin 40 Mg/0.4 Ml Syringe SUB-Q 40 mg DAILY YESENIA Administration Fentanyl Citrate 25 mcg 01/18/21 11:43 01/18/21 14:25 Fentanyl Citrate Inj (*Crx) 100 Mcg/2 Ml Vial IV PUSH 25 mcg Q2M PRN Administration Pain Hydromorphone HCl 0.25 mg 01/18/21 11:43 Hydromorphone Hcl Inj (*Crx) 1 Mg/Ml Syr IV PUSH Q5M PRN Pain Hydroxyzine Pamoate 25 mg 01/18/21 05:09 Hydroxyzine Pamoate 25 Mg Capsule PO TID PRN Anxiety Sodium Chloride 1,000 mls @ 100 mls/hr 01/18/21 05:15 01/19/21 07:30 Normal Saline Iv IV CO
--- NOTE | 2021-01-19 09:42 | PM.IMPN ---
Progress Note: A&P Assessment and Plan (1) Pyelonephritis: Code(s): N12 - Tubulo-interstitial nephritis, not specified as acute or chronic Status: Acute (2) Acute hypokalemia: Code(s): E87.6 - Hypokalemia Status: Acute (3) EILEEN (acute kidney injury): Code(s): N17.9 - Acute kidney failure, unspecified Status: Acute (4) Staghorn calculus: Code(s): N20.0 - Calculus of kidney Status: Acute (5) Radicular pain: Code(s): M54.10 - Radiculopathy, site unspecified Status: Acute (6) Tobacco abuse: Code(s): Z72.0 - Tobacco use Status: Acute (7) Bipolar 1 disorder, depressed: Code(s): F31.9 - Bipolar disorder, unspecified Status: Acute (8) DVT prophylaxis: Code(s): Z29.9 - Encounter for prophylactic measures, unspecified Status: Acute Additional Plan 01/18/21: Patient was admitted for inpatient care to [address] [place] [address]. She has been started on IV fluids and Zosyn. Blood and urine cultures have been collected and will follow-up on these results. Patient had hypokalemia on presentation for unclear reasons. This has been replaced. Repeat potassium normal now. Patient also with acute kidney injury on admission with a creatinine 1.2. Creatinine has normalized with IV fluids. Will continue IV fluids until she is eating normally. Patient with the extensive history of kidney stones at a young age. Check urine calcium. She was educated about the benefits of remaining well hydrated with drinking plenty of free water. Urology consulted. Patient also was educated about preventive measures for recurrent UTI. She was educated about the benefits of smoking cessation. Her back pain is better but persistent. Concerning for pyelonephritis given her other symptoms but cannot exclude radicular pain. Will continue to treat symptomatically. Encouraged her to be out of bed. Continue majority of her home medications for her bipolar and anxiety. She has a history of drug use. I offered HIV and hepatitis testing but she will think about it at this time. Unclear patient is on metoprolol for her tachycardia. Regardless, this will be on hold due to her soft blood pressure. Will clarify home medicine list with patient. Lovenox for DVT prophylaxis. 01/19/21: Patient seen by Urology and Right ureteral stent placed yesterday. Patient with dizziness possibly rlated to soft BP. She is young so BP may be normally at thsi level. Will follow for now but continue IV fluids for now. UCx and BCx still pending. Continue current IV abx. Encouraged her to be out of bed to the chair. Narrow narcotics since pain mild and she has hx of drug abuse. Subjective Date/time seen: 01/19/21 09:42 Interval history: 25yo female with hx of kidney stones transferred here for fever, chills and back pain. Stent placed yesterday and patietn toelrated this procedure well. Patient felt dizzy last evening with associated low BP. Symptoms better today. Eating okay. Good UOP. Still with the left sided back pain and slight achiness to the right. Still with dysuria. Exam Narrative: Exam Narrative: AF 97.6 100/52 84 18 99% ra Gen - NARD Chest - CTA bilaterally CV - RRR S1/S2 Abd - soft, ND, minimal diffuse tenderness, no guarding Back - left>right CVA tenderness Ext - no pedal edema. Psych - normal mood but mildly anxious affect and fidgety. Patient is pleasant and cooperative. Skin - warm and dry Objective Data Vital Signs Vital Signs: Vital Signs - 24 hr 01/18/21 11:45 01/18/21 13:11 01/18/21 13:25 Temperature 97.2 F L 97.9 F Pulse Rate 91 71 68 Respiratory Rate 16 17 Blood Pressure 96/73 L 85/44 L 90/49 L Pulse Oximetry 100 99 99 01/18/21 13:37 01/18/21 13:50 01/18/21 14:00 Temperature Pulse Rate 66 83 105 H Respiratory Rate 18 18 18 Blood Pressure 83/51 L 93/66 L 93/66 L Pulse Oximetry 99 100 100 01/18/21 14:16 01/18/21 14:45 01/18/21 15
--- NOTE | 2021-01-19 12:39 | WPDUROPN2 ---
Progress Note: A&P Assessment and Plan (1) Staghorn calculus: Code(s): N20.0 - Calculus of kidney Status: Acute Assessment and Plan: Will plan to keep stent in place and follow up at [place] to address her stone with PCNL. D/t insurance purposes we are unable to perform the procedure for her. (2) Pyelonephritis: Code(s): N12 - Tubulo-interstitial nephritis, not specified as acute or chronic Status: Acute Assessment and Plan: Continue IV antibiotics, tailor to culture results, ok to discharge when sensitivity report is given on appropriate course of oral antibiotics. Ok to continue Oxybutynin at home for stent discomfort. No further evaluation is needed at this time, she will be watched from a distance until discharge. Subjective Subjective Date/Time Seen: 01/19/21 12:39 POD #1 Cystoscopy, right stent placement, retrograde pyelogram. Patient is doing well, she notes moderate stent pain that is intermittent but controlled by Oxybutynin when it is given. Urine cultures are still pending, she continues with IV antibiotics, she is otherwise stable. Review of Systems Cardiovascular: Cardiovascular: Denies chest pain Respiratory: Respiratory: Reports no additional respiratory complaints Gastrointestinal: Gastrointestinal: Denies abdominal pain, Denies nausea and Denies vomiting Genitourinary: Genitourinary: Denies dysuria, Reports flank pain and Reports urinary urgency Exam Resp: Effort & Inspection: normal respiratory effort Cardio: Rate: regular rate GI: GI Palp: Yes Soft to palpation and Yes Tenderness to palpation present (GI) (RLQ) : General: Yes CVA tenderness on the right Extrem: General: no edema Objective Data Vital Signs Vital Signs: Vital Signs - 24 hr 01/18/21 13:11 01/18/21 13:25 01/18/21 13:37 Temperature 97.9 F Pulse Rate 71 68 66 Respiratory Rate 16 17 18 Blood Pressure 85/44 L 90/49 L 83/51 L Pulse Oximetry 99 99 99 01/18/21 13:50 01/18/21 14:00 01/18/21 14:16 Temperature Pulse Rate 83 105 H 85 Respiratory Rate 18 18 13 Blood Pressure 93/66 L 93/66 L 109/72 Pulse Oximetry 100 100 100 01/18/21 14:45 01/18/21 15:00 01/18/21 15:30 Temperature 97.9 F 97.9 F 97.9 F Pulse Rate 90 94 92 Respiratory Rate 16 16 18 Blood Pressure 102/59 L 115/69 99/64 L Pulse Oximetry 100 100 100 01/18/21 16:15 01/18/21 20:00 01/19/21 00:00 Temperature 98.0 F 98.3 F 97.4 F L Pulse Rate 94 88 67 Respiratory Rate 16 18 16 Blood Pressure 110/65 84/62 L 93/51 L Pulse Oximetry 100 100 100 01/19/21 04:00 01/19/21 08:00 Temperature 97.8 F 97.6 F Pulse Rate 72 84 Respiratory Rate 18 18 Blood Pressure 95/55 L 100/52 L Pulse Oximetry 100 99 Intake/Output Intake/Output: Intake & Output 01/16/21 01/17/21 01/18/21 01/19/21 23:59 23:59 23:59 23:59 Intake Total 2370 1020 Output Total 0 650 Balance 2370 370 Meds/Results Medications: Active Medications Generic Name Dose Route Start Last Admin Trade Name Freq PRN Reason Stop Dose Admin Acetaminophen 650 mg 01/19/21 09:59 Acetaminophen 325 Mg Tablet PO Q4H PRN Pain Rated 5 or Less Hydrocodone Bitart/Acetaminophen 1 tab 01/19/21 10:00 Hydrocodone/Acetaminophen (*Crx) 5-325 Mg Tablet PO Q6H PRN Pain Rated 6 or Greater Al Hydrox/Mg Hydrox/Simethicone 30 ml 01/18/21 05:11 Mag Hydrox/Al Hydrox/Simeth 30 Ml Udc PO QID PRN Dyspepsia Albuterol 2 puff 01/18/21 05:09 Albuterol Sulfate (*Sp) Aerosol 1 Puff INHALATION Q4-6H PRN Shortness Of Breath Bupropion HCl 300 mg 01/18/21 09:00 01/19/21 08:32 Bupropion Hcl Xl (24 Hr) 150 Mg Tabcr PO 300 mg DAILY YESENIA Administration Clonazepam 1 mg 01/18/21 05:09 01/18/21 14:51 Clonazepam (*Crx) 0.5 Mg Tablet PO 1 mg DAILY PRN Administration Anxiety Enoxaparin Sodium 40 mg 01/18/21 09:00 01/19/21 08:32 Enoxaparin 40 Mg/0.4 Ml Syringe SUB-Q 40 mg DAILY YESENIA
[2021-01-19 14:42] VITALS: BP 100/58; PULSE 83; RESP 16; TEMP 35.9; O2SAT 100
[2021-01-19] MEDS: clonazePAM (*CRX) 0.5 MG TABLET 1 MG PO (20:37)
[2021-01-19] MEDS: QUEtiapine FUMARATE 100 MG TABLET 300 MG PO (20:37)
[2021-01-19 21:54] VITALS: BP 98/41; PULSE 86; RESP 20; TEMP 36.3; O2SAT 99
[2021-01-19] MEDS: SODIUM CHLORIDE 0.9% IV 1,000 ML 70 ML IV CONT (23:46)
[2021-01-20 06:00] VITALS: BP 91/47; PULSE 87; RESP 20; TEMP 36.6; O2SAT 100
[2021-01-20 06:03] LABS: Hematocrit 32.3 % (37.0-47.0); Hemoglobin 10.2 g/dL (12.0-15.0); Mean Corpuscular HGB Conc 31.6 g/dl (32-36); Mean Corpuscular Hemoglobin 27.9 pg (26-34); Mean Corpuscular Volume 88.3 fl (80-100); Mean Platelet Volume 10.3 fl (7.4-10.4); Platelet Count Result 154 k/mm3 (150-375); Red Blood Count 3.66 M/mm3 (4.2-5.4); Red Cell Distribution Width 14.8 % (11.5-14.5); White Blood Count 4.1 K/mm3 (4.5-10.0)
[2021-01-20 06:27] LABS: Anion Gap 8 mmol/L (8-16); Blood Urea Nitrogen 10 mg/dL (7-17); Calcium 8.3 mg/dL (8.4-10.2); Carbon Dioxide 25 mmol/L (22-30); Chloride 109 mmol/L (98-107); Estimated CRCL calculation 83 ml/min; Estimated Glomerular Filt Rate > 60; Glucose 93 mg/dL (65-105); Potassium 3.7 mmol/L (3.4-5.0); Sodium 142 mmol/L (137-145)
[2021-01-20] MEDS: PHENAZOPYRIDINE HCL 100 MG TABLET 200 MG PO ×3 (09:32→16:45)
[2021-01-20] MEDS: ENOXAPARIN 40 MG/0.4 ML SYRINGE SUB-Q (09:33)
[2021-01-20] MEDS: OXYBUTYNIN CHLORIDE 5 MG TABLET PO ×3 (09:33→16:45)
[2021-01-20] MEDS: buPROPion HCL XL (24 HR) 150 MG TABCR 300 MG PO (09:33)
[2021-01-20] MEDS: HYDROcodone/acetaminophen (*CRX) 5-325 MG TABLET 1 TAB PO (12:06)
--- NOTE | 2021-01-20 13:21 | PM.DS ---
DS: Admitting Diagnosis Admitting Diagnosis Admitting Diagnosis: Fever, chills, back pain DS: Discharge Diagnosis Discharge Diagnosis (1) Pyelonephritis: Code(s): N12 - Tubulo-interstitial nephritis, not specified as acute or chronic Status: Acute (2) Acute hypokalemia: Code(s): E87.6 - Hypokalemia Status: Acute (3) EILEEN (acute kidney injury): Code(s): N17.9 - Acute kidney failure, unspecified Status: Acute (4) Staghorn calculus: Code(s): N20.0 - Calculus of kidney Status: Acute (5) Radicular pain: Code(s): M54.10 - Radiculopathy, site unspecified Status: Acute (6) Tobacco abuse: Code(s): Z72.0 - Tobacco use Status: Acute (7) Bipolar 1 disorder, depressed: Code(s): F31.9 - Bipolar disorder, unspecified Status: Acute DS: Summary Hospital Course Reason for hospitalization: 25yo female with hx of kidney stones transferred here for fever, chills and back pain. Please see H&P for details. Hospital Course: In the ED, she was hemodynamically stable. CBC was normal. Her potassium was 2.6 with a creatinine 1.2. Bilirubin level was elevated 1.8. Lipase is normal. Total protein was elevated 8.9. UA was consistent with UTI. Urine test was negative. CT of the abdomen pelvis without contrast showed a large right renal stone measuring 4 cm in the renal pelvis consistent with staghorn. She had other right renal stones that were nonobstructive. She also had mild right hydroureteronephrosis without obstructing stone identified. Mild thickening of the right ureter. No left nephrolithiasis. Gallbladder was unremarkable. Lung bases were clear. She was treated with dexamethasone, IV fluids, gentamicin,, Zofran and Toradol. Potassium was replaced. Patient was transferred to our facility for further management. Repeat potassium and creatinine normalized. Patient still with the left-sided back pain but better overall and felt related to radiculopathy. Patient was admitted for inpatient care to [address] [place] [address]. She has been started on IV fluids and Zosyn. Patient with the extensive history of kidney stones at a young age. She was educated about the benefits of remaining well hydrated with drinking plenty of free water. Patient also was educated about preventive measures for recurrent UTI. She was educated about the benefits of smoking cessation. We continued a majority of her home medications for her bipolar and anxiety. She has a history of drug use. I offered HIV and hepatitis testing but declined. Urology was consulted and patient underwent cystoscopy with right retrograde pyelogram and right ureteral stent placement. Blood and urine cultures were collected at the outside hospital. BCx NGTD. UCx growing butler-sensitive EColi and abx adjusted. Patietn feels well and feels ready for discharge. Patient was able to be discharged home on 01/20/21. Urology plans to leave stent in place and have patient follow up at [place] to address her stone with PCNL. Due to insurance purposes, Urology was unable to perform the procedure for her. Status at Discharge Cognitive/behavioral status at discharge: stable Time Spent with Patient Time attestation: Total time spent providing and/or coordinating discharge services: 35 minutes Time spent: Greater than 30 minutes Exam Narrative: Exam Narrative: AF 97.9 91/47 87 20 100% ra Gen - NARD Chest - CTA bilaterally CV - RRR S1/S2 Abd - soft, NT/ND, +BS Back - left>right CVA tenderness even to light touch Ext - no pedal edema. Psych - normal mood but mildly anxious affect Skin - warm and dry DS: Data Data Completed and Pending Labs on day of discharge: Labs from last 24 hours 01/20/21 01/20/21 05:45 05:45 WBC 4.1 L RBC 3.66 L Hgb 10.2 L Hct 32.3 L MCV 88.3 MCH 27.9 MCHC 31.6 L RDW 14.8 H Plt Count 154 MPV 10.3 Sodium 142 Potassium 3.7 Chloride 109 H Carbon
[2021-01-20 14:00] VITALS: BP 105/60; PULSE 93; RESP 18; TEMP 36.6; O2SAT 99
[2021-01-20] MEDS: ACETAMINOPHEN 325 MG TABLET 650 MG PO (14:59)
[2021-01-22 22:00] LABS: Calcium/Creatinine Ratio, Ur 75 mg/g creat (10-320); Urine Calcium, Random 6.4 mg/dL (***); Urine Creatinine, Random 86 mg/dL (20-275)
--- NOTE | 2021-01-27 11:11 | PC.NURSE ---
Ca/CR ratio is nml. at 75 Dr. Catrachita wilcox.
== END 2021-01-20 16:55 | disposition home or self-care (01) ==
PROVIDERS: Urology; Admitting Provider Internal Medicine; Visit Provider Internal Medicine
PROC: (CPT 52352; principal; 2021-01-18 13:30)
DX: N13.6 Pyonephrosis (principal); N12 Tubulo-interstitial nephritis, not specified as acute or chronic; N20.0 Calculus of kidney; N17.9 Acute kidney failure, unspecified; E87.6 Hypokalemia; J45.909 Unspecified asthma, uncomplicated; F41.9 Anxiety disorder, unspecified; F31.9 Bipolar disorder, unspecified; F17.210 Nicotine dependence, cigarettes, uncomplicated; Z87.442 Personal history of urinary calculi
CPT/HCPCS: 52332; 36415; 74420; 80048; 80053; 82310; 82570; 83605; 85025; 85027; 96361; 96365; 96372; A9270; C1769; C2617; G0378; G0379; J1100; J1650; J2250; J2405; J2543; J2704; J3010; J7030; J7120; Q9966

== ENCOUNTER 2021-03-17 08:43 | Outpatient (CLI) | payer OTHER, SELFPAY ==
[2021-03-17 08:59] LABS: Basophils Absolute Auto 0.02 K/mm3 (0.00-0.10); Basophils Percent Auto 0.4 % (0.0-1.0); Eosinophils Absolute Auto 0.39 K/mm3 (0.02-0.50); Eosinophils Percent Auto 7.8 % (1.0-6.0); Hematocrit 37.9 % (35.0-49.0); Hemoglobin 12.5 g/dL (12.0-15.0); Immature Granulocyte Absolute 0.01 K/mm3 (0.00-0.00); Immature Granulocyte Percent A 0.2 % (0.0-0.0); Lymphocytes Absolute Auto 1.92 K/mm3 (1.10-4.50); Lymphocytes Percent Auto 38.5 % (18.0-42.0); Mean Corpuscular Hemoglobin 29.1 pg (27.0-31.0); Mean Corpuscular Volume 88.1 fL (78.0-102.0); Mean Platelet Volume 9.7 fl (9.2-11.8); Monocytes Absolute Auto 0.34 K/mm3 (0.10-0.90); Monocytes Percent Auto 6.8 % (2.0-11.0); Neutrophils Absolute Auto 2.3 K/mm3 (1.7-7.2); Neutrophils Percent Auto 46.3 % (50.0-70.0); Platelet Count Result 225 K/mm3 (150-420); Red Cell Distribution Width 13.4 % (11.6-14.4)
[2021-03-17 09:16] LABS: Hemoglobin A1C 5.2 % (<5.7)
[2021-03-17 09:36] LABS: Alanine Aminotransferase 19 U/L (14-59); Alkaline Phosphatase 72 U/L (46-116); Anion Gap 10 mmol/L (8-16); Aspartate Amino Transferase 13 U/L (15-37); Bilirubin,Total 0.4 mg/dL (0.00-1.00); Blood Urea Nitrogen 13 mg/dL (7-18); Calcium 8.8 mg/dL (8.5-10.1); Carbon Dioxide 27 mmol/L (21-32); Chloride 107 mmol/L (98-108); Cholesterol 139 mg/dL (0-200); Estimated Glomerular Filt Rate > 60; Glucose 94 mg/dL (70-99); HDL Direct 51 mg/dL (40-60); LDL Cholesterol Calculated 76 mg/dL (<130); Osmolality Calculated 298 mOsm/kg (285-295); Potassium 4.3 mmol/L (3.5-5.1); Sodium 144 mmol/L (136-145); Total Protein 7.6 g/dL (6.4-8.2); Triglycerides 58 mg/dL (0-150)
== END 2021-03-17 08:44 | disposition home or self-care (01) ==
LOC: CHSLAB 08:50
PROVIDERS: PCP Family Medicine
DX: F31.32 Bipolar disorder, current episode depressed, moderate (principal); Z79.899 Other long term (current) drug therapy
CPT/HCPCS: 36415; 80053; 80061; 83036; 85025

== ENCOUNTER 2021-04-16 13:02 | Outpatient (CLI) | payer OTHER, SELFPAY | END 2021-04-16 13:03 | disposition home or self-care (01) | LOC: CHSLAB 13:08 | PROVIDERS: PCP Family Medicine | DX: N20.0 Calculus of kidney (principal) | CPT/HCPCS: 87086; 87088 ==

== ENCOUNTER 2021-04-23 11:08 | Outpatient (CLI) | payer OTHER, SELFPAY ==
[2021-04-23 12:13] LABS: SARS-CoV-2 RNA PCR Negative (Negative)
== END 2021-04-23 11:09 | disposition home or self-care (01) ==
LOC: CHSLAB 11:12
PROVIDERS: PCP Family Medicine
DX: Z01.818 Encounter for other preprocedural examination (principal); Z20.822 Contact with and (suspected) exposure to COVID-19
CPT/HCPCS: C9803; U0003; U0005

== ENCOUNTER 2021-05-12 14:35 | Outpatient (CLI) | payer OTHER, SELFPAY | END 2021-05-12 14:36 | disposition home or self-care (01) | LOC: CHSLAB 14:38 | PROVIDERS: PCP Family Medicine | DX: N20.0 Calculus of kidney (principal) | CPT/HCPCS: 87086 ==

== ENCOUNTER 2021-05-15 13:05 | Outpatient (CLI) | payer OTHER, SELFPAY ==
[2021-05-15 14:23] LABS: SARS-CoV-2 RNA PCR Negative (Negative)
== END 2021-05-15 13:06 | disposition home or self-care (01) ==
LOC: CHSLAB 13:08
PROVIDERS: PCP Family Medicine
DX: Z01.818 Encounter for other preprocedural examination (principal); Z20.822 Contact with and (suspected) exposure to COVID-19
CPT/HCPCS: C9803; U0003; U0005

== ENCOUNTER 2022-01-07 21:33 | Emergency (ER) | payer OTHER, SELFPAY ==
[2022-01-07 21:45] VITALS: BP 112/83; PULSE 101; RESP 18; TEMP 36.8; O2SAT 96
--- NOTE | 2022-01-07 22:01 | ED.SKABFB ---
HPI - Skin/Abscess/Foreign Bdy General Chief complaint: Skin/Abscess/Foreign Body Stated complaint: bite by bug Time Seen by Provider: 01/07/22 21:37 Source: patient and RN notes reviewed Mode of arrival: ambulatory Limitations: no limitations History of Present Illness HPI narrative: medial right elbow insect bite complaint: insect bite/sting Onset (ago): day(s) (3) Tetanus up to date: unsure Location: RUE Severity: mild Severity scale (1-10): 2 Quality: aching and dull Pain Consistency: constant Relieving factors: medication Exacerbating factors: movement Associated symptoms: denies other symptoms Treatments prior to arrival: none Related Data Home Medications Medication Instructions Recorded Confirmed quetiapine 100 mg tablet (Seroquel) 300 mg PO HS 10/13/19 01/18/21 bupropion HCl 300 mg 24 hr tablet, 300 mg PO DAILY 12/19/19 01/18/21 extended release clonazepam 1 mg tablet 1 mg PO DAILY PRN Anxiety 12/19/19 01/18/21 hydroxyzine pamoate 25 mg capsule 25 mg PO TID PRN Anxiety 12/19/19 01/18/21 albuterol sulfate 90 mcg/actuation 2 puff inhalation Q4-6H PRN 01/18/21 01/18/21 aerosol inhaler Shortness Of Breath dextroamphetamine-amphetamine ER 20 mg PO DAILY PRN focus 01/18/21 01/18/21 20 mg 24hr capsule,extend release Allergies Allergy/AdvReac Type Severity Reaction Status Date / Time No Known Allergies Allergy Verified 01/07/22 21:56 Review of Systems Review of Systems: All systems reviewed & are unremarkable except as noted in HPI and below Constitutional: Constitutional: Reports no additional constitutional complaints Eyes: Eyes: Reports no additional eye complaints ENT: Reports system reviewed and no additional complaints, except as documented Cardiovascular: Cardiovascular: Reports no additional cardiovascular complaints Respiratory: Respiratory: Reports no additional respiratory complaints Gastrointestinal: Gastrointestinal: Reports no additional gastrointestinal complaints Genitourinary: Genitourinary: Reports no additional female genitourinary complaints Musculoskeletal: Musculoskeletal: Reports no additional musculoskeletal complaints Integumentary/Breasts: Skin/Breast: Reports system reviewed and no additional complaints, except as docu Neurologic: Reports system reviewed and no additional complaints, except as documented Psychiatric: Psychiatric: Reports no additional psychiatric complaints Endocrine: Endocrine: Reports no additional endocrine complaints Hematologic/Lymphatic: Hematologic/Lymphatic: Reports no additional hematologic/lymphatic complaints Allergic/Immunologic: Allergic/Immunologic: Reports no additional allergic/immunologic complaints PMFSH Past Medical History Medical History Anxiety Asthma Bipolar 1 disorder, depressed Insect bite of right elbow with local reaction Renal calculi cystoscopy with stone retrieval age 10yo; hx of stones with spont passage Tachycardia Surgical History Surgical History History of orthopedic surgery Patient's 'hips turned out' requiring bilateral LE adry placements at age 15yo; had subsequent surgery to remove screws Hx of appendectomy Hx of meniscectomy of right knee Approx 2019 Family History Family History Father Diabetes mellitus Mother Breast cancer Kidney stone Social History Social History Social History: 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 She smokes half a pack a day for the past 9 years. She drinks 2 alcoholic drinks per month on average. 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 She lives at home with her fiance. His children are with them half the time. Patient is hopefully going to have her own 3 children with her full-time
[2022-01-07] MEDS: IBUPROFEN 400 MG TABLET 800 MG PO (22:10)
[2022-01-07] MEDS: cefTRIAXone 1 GM, LIDOCAINE HCL 1% LOCAL INJ 2.1 ML IM (22:11)
[2022-01-07 22:30] VITALS: RESP 16
== END 2022-01-07 22:33 | disposition home or self-care (01) ==
PROVIDERS: Emergency Provider Emergency Medicine; PCP Family Medicine
DX: S40.861A Insect bite (nonvenomous) of right upper arm, initial encounter (principal); L03.113 Cellulitis of right upper limb; W57.XXXA Bitten or stung by nonvenomous insect and other nonvenomous arthropods, initial encounter
CPT/HCPCS: 96372; 99283; A9270; J0696

== ENCOUNTER 2022-02-09 12:43 | Emergency (ER) | payer OTHER, SELFPAY ==
[2022-02-09] VITALS (24 sets, daily range): BP systolic 96–121; BP diastolic 55–92; PULSE 99–132; RESP 8–25; TEMP 36.8–37.7; O2SAT 96–100
--- NOTE | ~2022-02-09 | XR_ITS ---
EXAMINATION: XR chest 1V portable Exam Date/Time: 02/09/2022 14:00 CDT HISTORY: fever. sob. cough. weakness Comparison: None available. RESULT: Lines, tubes, and devices: None. Lungs and pleura: Clear. Cardiomediastinal silhouette: Unremarkable. Other: No acute osseous or upper abdominal finding. IMPRESSION: No acute cardiopulmonary process. Reviewed, dictated and finalized at location K.
--- NOTE | ~2022-02-09 | CT_ITS ---
EXAMINATION: CT abdomen pelvis wo con DATE: 02/09/2022 14:00 INDICATION: Left flank pain TECHNIQUE: Computed tomography (CT) of the abdomen and pelvis was performed without intravenous contr ast. The dose-length product (DLP) was 248.53 mGy-cm. Automated exposure control and iterative recons truction technique were employed. COMPARISON: 01/18/2021 FINDINGS: Minimal dependent atelectasis is present in the lung bases. The heart size is normal. The l iver, spleen, pancreas, gallbladder, and adrenal glands are normal. There has been interval treatment of the previously described staghorn calculus of the right kidney. There are persistent nonobstructi ng stones of the right kidney measuring up to 11 mm. No pathologically enlarged abdominal or pelvic l ymph nodes are identified. There is no hydronephrosis or hydroureter. There is no free intraperitonea l gas or evidence of bowel obstruction. There is antegrade intramedullary adry and interlocking intrat rochanteric screw fixation of the femurs. The appendix is surgically absent. IMPRESSION: 1. No CT correlate for the patient's symptoms. 2. Nonobstructing right nephrolithiasis. Reviewed, dictated and finalized at location B.
[2022-02-09 13:32] LABS: Basophils Absolute Auto 0.01 K/mm3 (0.00-0.10); Basophils Percent Auto 0.1 % (0.0-1.0); Hematocrit 39.2 % (35.0-49.0); Hemoglobin 13.6 g/dL (12.0-15.0); Immature Granulocyte Absolute 0.03 K/mm3 (0.00-0.00); Immature Granulocyte Percent A 0.4 % (0.0-0.0); Lymphocytes Absolute Auto 0.89 K/mm3 (1.10-4.50); Lymphocytes Percent Auto 11.1 % (18.0-42.0); Mean Corpuscular HGB Conc 34.7 g/dL (32.0-36.0); Mean Corpuscular Hemoglobin 29.8 pg (27.0-31.0); Mean Platelet Volume 10.1 fl (9.2-11.8); Neutrophils Absolute Auto 6.3 K/mm3 (1.7-7.2); Neutrophils Percent Auto 78.4 % (50.0-70.0); Platelet Count Result 170 K/mm3 (150-420); Red Blood Count 4.56 M/mm3 (4.20-5.40); Red Cell Distribution Width 12.8 % (11.6-14.4)
[2022-02-09 13:33] LABS: Add Urine Microscopic? YES; Appearance Urine Turbid (Clear); Bilirubin Urine 1+ (Negative); Blood Urine 3+ (Negative); Color Urine Yellow (Yellow); Glucose Urine UA Trace (Negative); Ketones Urine Trace (Negative); Leukocyte Esterase Ur 3+ (Negative); Nitrate Urine Positive (Negative); Protein Urine 2+ (Negative); Urobilinogen Urine >=8.0 mg/dL (0.2-1.0); pH Urine 6.5 (5.0-8.0)
[2022-02-09 13:37] LABS: Squamous Epithelial Cell Urine Many /hpf (Few); WBC Urine 31-50 /hpf (0-3)
[2022-02-09 13:38] LABS: Bacteria Urine 3+ /hpf; Mucus Urine Moderate /lpf; SPREG INTERNAL CONTROL Positive; Serum Qual hCG Negative
[2022-02-09] MEDS: ONDANSETRON INJ 4 MG/2 ML VIAL IV PUSH (13:41)
[2022-02-09] MEDS: PANTOPRAZOLE SODIUM IV 40 MG VIAL IV PUSH (13:41)
[2022-02-09] MEDS: SODIUM CHLORIDE 0.9% IV 1,000 ML 999 ML IV CONT (13:41)
[2022-02-09 13:48] LABS: Alanine Aminotransferase 57 U/L (14-59); Albumin Level 3.7 g/dL (3.4-5.0); Alkaline Phosphatase 92 U/L (46-116); Anion Gap 10 mmol/L (8-16); Aspartate Amino Transferase 30 U/L (15-37); Bilirubin,Total 1.4 mg/dL (0.00-1.00); Blood Urea Nitrogen 7 mg/dL (7-18); Calcium 8.8 mg/dL (8.5-10.1); Carbon Dioxide 24 mmol/L (21-32); Chloride 97 mmol/L (98-108); Estimated CRCL calculation 70 ml/min; Estimated Glomerular Filt Rate > 60; Glucose 125 mg/dL (70-99); Osmolality Calculated 271 mOsm/kg (285-295); Potassium 3.1 mmol/L (3.5-5.1); Sodium 131 mmol/L (136-145); Total Protein 8.1 g/dL (6.4-8.2)
--- NOTE | 2022-02-09 14:04 | ED.ABDPAIN ---
HPI - Abdominal Pain General Chief Complaint: Urogenital-Female Stated Complaint: fever, flank pain, headache, pain with urination Time Seen by Provider: 02/09/22 12:47 Source: patient, EMS and RN notes reviewed Mode of arrival: ambulatory Limitations: no limitations History of Present Illness MD elicited complaint: flank pain (left ) Pertinent past history: kidney stones and past UTI Onset (ago): day(s) (4) Pain Consistency: constant Location: L flank Severity: mild Pain scale (0-10): 7 Quality: cramping, aching and dull Radiation: back Migration to: no migration Exacerbating factors: nothing Relieving factors: nothing Associated symptoms: nausea, vomiting, fever, chills and dysuria Related Data Patient : No Home Medications Medication Instructions Recorded Confirmed quetiapine 100 mg tablet (Seroquel) 300 mg PO HS 10/13/19 02/09/22 bupropion HCl 300 mg 24 hr tablet, 300 mg PO DAILY 12/19/19 02/09/22 extended release clonazepam 1 mg tablet 1 mg PO DAILY PRN Anxiety 12/19/19 02/09/22 Allergies Allergy/AdvReac Type Severity Reaction Status Date / Time No Known Allergies Allergy Verified 02/09/22 13:04 Review of Systems Review of Systems: All systems reviewed & are unremarkable except as noted in HPI and below Constitutional: Constitutional: Reports no additional constitutional complaints Eyes: Eyes: Reports no additional eye complaints ENT: Reports system reviewed and no additional complaints, except as documented Cardiovascular: Cardiovascular: Reports no additional cardiovascular complaints Respiratory: Respiratory: Reports no additional respiratory complaints Gastrointestinal: Gastrointestinal: Reports no additional gastrointestinal complaints Genitourinary: Genitourinary: Reports no additional female genitourinary complaints Musculoskeletal: Musculoskeletal: Reports no additional musculoskeletal complaints Integumentary/Breasts: Skin/Breast: Reports system reviewed and no additional complaints, except as docu Neurologic: Reports system reviewed and no additional complaints, except as documented Psychiatric: Psychiatric: Reports no additional psychiatric complaints Endocrine: Endocrine: Reports no additional endocrine complaints Hematologic/Lymphatic: Hematologic/Lymphatic: Reports no additional hematologic/lymphatic complaints Allergic/Immunologic: Allergic/Immunologic: Reports no additional allergic/immunologic complaints PMFSH Past Medical History Medical History Anxiety Asthma Bipolar 1 disorder, depressed Insect bite of right elbow with local reaction Renal calculi cystoscopy with stone retrieval age 10yo; hx of stones with spont passage Tachycardia Surgical History Surgical History History of orthopedic surgery Patient's 'hips turned out' requiring bilateral LE adry placements at age 15yo; had subsequent surgery to remove screws Hx of appendectomy Hx of meniscectomy of right knee Approx 2019 Family History Family History Father Diabetes mellitus Mother Breast cancer Kidney stone Social History Social History Social History: 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 She smokes half a pack a day for the past 9 years. She drinks 2 alcoholic drinks per month on average. 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 She lives at home with her fiance. His children are with them half the time. Patient is hopefully going to have her own 3 children with her full-time in the near future. She has 2 cats. She is a full code. She nominates her mother to be the individual would make medical decisions for her if she is unable. Smoking packs per day: 0.5 Smoking cigarettes per day: 10.0 Years smoked:
[2022-02-09] MEDS: KETOROLAC 30 MG/ML VIAL (*BKC) IM (14:12)
--- NOTE | 2022-02-09 14:33 | ECG_ITS ---
Measurements Intervals [place] Rate: 116 P: 72 NH: 128 QRS: 97 QRSD: 99 T: -1 QT: 313 QTc: 436 Interpretive Statements SINUS TACHYCARDIA RIGHT AXIS DEVIATION DELAYED PRECORDIAL R/S TRANSITION BORDERLINE ST-T WAVE ABNORMALITY- INFERIOR LEADS ABNORMAL ECG Electronically Signed On 02-09-2022 14:58:37 CDT by Dre Brice D.O.
[2022-02-09 15:08] LABS: Influenza A QL RT-PCR Negative (Negative); Influenza B QL RT-PCR Negative (Negative); SARS-CoV-2 RNA PCR Negative (Negative)
[2022-02-09] MEDS: POTASSIUM CHLORIDE 20 MEQ TABLET PO (15:15)
[2022-02-09] MEDS: SODIUM CHLORIDE 0.9% IV 500 ML 999 ML IV CONT (15:24)
== END 2022-02-09 16:10 | disposition home or self-care (01) ==
PROVIDERS: Emergency Provider Emergency Medicine; PCP Family Medicine
DX: N39.0 Urinary tract infection, site not specified (principal); Z20.822 Contact with and (suspected) exposure to COVID-19
CPT/HCPCS: 36415; 71045; 74176; 80053; 81001; 83605; 84703; 85025; 87081; 87502; 87880; 93005; 96361; 96365; 96372; 96375; 99284; A9270; C9113; C9803; J0696; J1885; J2405; J7030; J7040; U0003; U0005

== ENCOUNTER 2022-10-27 21:56 | Emergency (ER) | payer OTHER, SELFPAY ==
--- NOTE | ~2022-10-27 | CT_ITS ---
EXAMINATION: CT abdomen pelvis wo con DATE: 10/27/2022 22:32 INDICATION: Left flank pain today. History kidney stones. TECHNIQUE: Computed tomography (CT) of the abdomen and pelvis was performed without intravenous contr ast. Automated exposure control and iterative reconstruction technique were employed. Exam dose: 244 .94 mGy-cm total exam DLP. COMPARISON: 02/09/2022 CT abdomen pelvis FINDINGS: The lung bases are clear of infiltrate or consolidation. Normal heart size. No pericardial or pleural effusion. The liver, gallbladder, spleen, pancreas, and adrenal glands are unremarkable. No bile duct or pancre atic duct dilatation. There are multiple right renal calculi, involving the mid and particularly lower pole of the kidney t here is mild right perinephric fat stranding. No left urinary tract calculus or left or right uretera l calculus or hydroureteronephrosis. Normal caliber of the abdominal aorta. No intraperitoneal or retroperitoneal or pelvic mass lesion or adenopathy or ascites. The urinary bladder and uterus are unremarkable. No adnexal mass lesion is noted. Probable postoperative change from appendectomy. No bowel obstruction or intraperitoneal free air. Bilateral femoral intramedullary rods. IMPRESSION: Right perinephric mild fat stranding suggesting acute right pyelonephritis Right nonobstructive prominent nephrolithiasis No ureteral calculus or hydroureteronephrosis Probable appendectomy Reviewed, dictated and finalized at Location A. Reviewed, dictated and finalized at location A. IMPRESSION: Right perinephric mild fat stranding suggesting acute right pyelon ephritis Right nonobstructive prominent nephrolithiasis No ureteral calculus or hydroureteronephrosis Probable appendectomy
[2022-10-27 21:58] VITALS: BP 127/93; PULSE 153; RESP 18; TEMP 36.6; O2SAT 96
[2022-10-27 22:17] LABS: Basophils Absolute Auto 0.02 K/mm3 (0.00-0.10); Basophils Percent Auto 0.2 % (0.0-1.0); Hematocrit 40.6 % (35.0-49.0); Hemoglobin 14.1 g/dL (12.0-15.0); Immature Granulocyte Absolute 0.06 K/mm3 (0.00-0.00); Immature Granulocyte Percent A 0.5 % (0.0-0.0); Lymphocytes Absolute Auto 0.84 K/mm3 (1.10-4.50); Lymphocytes Percent Auto 7.3 % (18.0-42.0); Mean Corpuscular HGB Conc 34.7 g/dL (32.0-36.0); Mean Corpuscular Hemoglobin 30.3 pg (27.0-31.0); Mean Corpuscular Volume 87.3 fL (78.0-102.0); Mean Platelet Volume 10.1 fl (9.2-11.8); Monocytes Absolute Auto 1.24 K/mm3 (0.10-0.90); Monocytes Percent Auto 10.7 % (2.0-11.0); Neutrophils Absolute Auto 9.4 K/mm3 (1.7-7.2); Neutrophils Percent Auto 81.3 % (50.0-70.0); Platelet Count Result 213 K/mm3 (150-420); Red Blood Count 4.65 M/mm3 (4.20-5.40); Red Cell Distribution Width 12.5 % (11.6-14.4); White Blood Count 11.6 K/mm3 (4.8-10.8)
[2022-10-27] MEDS: SODIUM CHLORIDE 0.9% IV 1,000 ML 999 ML IV CONT (22:19)
[2022-10-27] MEDS: KETOROLAC 30 MG/ML VIAL (*BKC) IV PUSH (22:19)
[2022-10-27 22:33] LABS: Alanine Aminotransferase 59 U/L (14-59); Albumin Level 3.9 g/dL (3.4-5.0); Alkaline Phosphatase 107 U/L (46-116); Anion Gap 14 mmol/L (8-16); Aspartate Amino Transferase 17 U/L (15-37); Bilirubin,Total 1.1 mg/dL (0.00-1.00); Blood Urea Nitrogen 10 mg/dL (7-18); Calcium 9.3 mg/dL (8.5-10.1); Carbon Dioxide 23 mmol/L (21-32); Chloride 97 mmol/L (98-108); Estimated CRCL calculation 58 ml/min; Estimated Glomerular Filt Rate 56; Glucose 132 mg/dL (70-99); Lipase 10 U/L (16-77); Osmolality Calculated 279 mOsm/kg (285-295); Sodium 134 mmol/L (136-145); Total Protein 8.8 g/dL (6.4-8.2)
[2022-10-27 22:36] LABS: Lactic Acid Reflex 1.3 mmol/L (0.4-2.0)
[2022-10-27 22:45] LABS: SPREG INTERNAL CONTROL Positive; Serum Qual hCG Negative
[2022-10-27 23:00] VITALS: BP 129/88; PULSE 88; RESP 20; O2SAT 98
[2022-10-27 23:15] LABS: Appearance Urine Clear (Clear); Bilirubin Urine 2+ (Negative); Blood Urine 2+ (Negative); Glucose Urine UA Trace (Negative); Ketones Urine Trace (Negative); Leukocyte Esterase Ur 1+ LEU/UL (Negative); Nitrate Urine Negative (Negative); Protein Urine 3+ (Negative); Urobilinogen Urine >=8.0 mg/dL (0.2-1.0); pH Urine 6.5 (5.0-8.0)
[2022-10-27] MEDS: POTASSIUM BICARBONATE 25 MEQ TABEF 50 MEQ PO (23:15)
[2022-10-27 23:20] LABS: Add Urine Microscopic? YES; Color Urine Dark Yellow (Yellow)
[2022-10-27 23:21] LABS: Amorphous Sediment Urine Few; Bacteria Urine 4+ /hpf; Mucus Urine Heavy /lpf; Squamous Epithelial Cell Urine Many /hpf (Few); WBC Urine 21-30 /hpf (0-3)
--- NOTE | 2022-10-27 23:26 | ED.FEMALEGU ---
HPI - Female Genitourinary General Chief complaint: Urogenital-Female Stated complaint: Kidney Pain Time Seen by Provider: 10/27/22 21:57 Source: patient Mode of arrival: ambulatory Limitations: no limitations History of Present Illness HPI Narrative: this is a 27-year-old female presents with some suprapubic pain and discomfort and right flank pain with no fever chills vitals are stable blood pressure 129/88 currently some nausea with no vomiting has some dysuria with no hematuria no chest pain or shortness of breath. MD elicited complaint: dysuria Onset (ago): day(s) Severity: moderate Severity scale (1-10): 7 Quality of pain: burning and aching Related Data Home Medications Medication Instructions Recorded Confirmed quetiapine 100 mg tablet (Seroquel) 300 mg PO HS 10/13/19 10/27/22 bupropion HCl 300 mg 24 hr tablet, 300 mg PO DAILY 12/19/19 10/27/22 extended release clonazepam 1 mg tablet 1 mg PO DAILY PRN Anxiety 12/19/19 10/27/22 Allergies Allergy/AdvReac Type Severity Reaction Status Date / Time No Known Allergies Allergy Verified 02/09/22 13:04 Review of Systems Review of Systems: All systems reviewed & are unremarkable except as noted in HPI and below PMFSH Past Medical History Medical History Anxiety Asthma Bipolar 1 disorder, depressed Insect bite of right elbow with local reaction Renal calculi cystoscopy with stone retrieval age 10yo; hx of stones with spont passage Tachycardia Surgical History Surgical History History of orthopedic surgery Patient's 'hips turned out' requiring bilateral LE adry placements at age 15yo; had subsequent surgery to remove screws Hx of appendectomy Hx of meniscectomy of right knee Approx 2019 Family History Family History Father Diabetes mellitus Mother Breast cancer Kidney stone Social History Social History Social History: 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 She smokes half a pack a day for the past 9 years. She drinks 2 alcoholic drinks per month on average. 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 She lives at home with her fiance. His children are with them half the time. Patient is hopefully going to have her own 3 children with her full-time in the near future. She has 2 cats. She is a full code. She nominates her mother to be the individual would make medical decisions for her if she is unable. Smoking packs per day: 0.5 Smoking cigarettes per day: 10.0 Years smoked: 7 Smoking pack-years: 3.50 Smoking status: Current every day smoker Tobacco type: cigarettes Second hand tobacco smoke exposure: Yes Alcohol intake: current Drinks per week: 1 Substance use: former Substance use type: methamphetamine Last use: 2017 Gender identity (if verbalized by the patient): Female Sexual Orientation (if Verbalized by the Patient): Straight or Heterosexual Spiritual care concerns: No Exam Const: General: healthy appearing Nutritional Appearance: well nourished Orientation/consciousness: patient oriented x3 HENMT: Head: normal to inspection Eyes: Conjunctivae: conjunctivae normal EOM: EOMs intact bilaterally Direct Ophthalmoscopy: no photophobia Neck: Neck: normal visual inspection and no lymphadenopathy Chest: Chest palpation & inspection: normal inspection of the chest Resp: Effort & Inspection: normal respiratory effort Auscultation: clear to auscultation bilaterally Cardio: Rate: regular rate Rhythm: regular rhythm GI: GI Palp: Yes Soft to palpation and Yes Tenderness to palpation present (GI) : General: Yes bladder normal to palpation Other: Suprapubic tenderness with palpation Urinary Catheter: Urinary Catheter:
[2022-10-28] VITALS: BP 140/89; PULSE 90; RESP 20; TEMP 36.6; O2SAT 96
--- NOTE | 2022-10-31 13:21 | PC.NURSE ---
FINAL URINE CULTURE REPORT: No change to d/c antibiotic per Dr. Samaniego.
== END 2022-10-28 00:01 | disposition home or self-care (01) ==
PROVIDERS: Emergency Provider Emergency Medicine; PCP Nurse Practitioner
DX: N30.00 Acute cystitis without hematuria (principal); F41.9 Anxiety disorder, unspecified; F31.9 Bipolar disorder, unspecified; F17.210 Nicotine dependence, cigarettes, uncomplicated
CPT/HCPCS: 36415; 74176; 80053; 81001; 83605; 83690; 84703; 85025; 87077; 87086; 87088; 87186; 96361; 96365; 96375; 99284; A9270; J0696; J1885; J7030

== ENCOUNTER 2023-02-23 13:05 | Emergency (ER) | payer OTHER, SELFPAY ==
[2023-02-23] VITALS (33 sets, daily range): BP systolic 80–119; BP diastolic 45–68; PULSE 106–139; RESP 14–29; TEMP 36.7–37.1; O2SAT 94–100
--- NOTE | ~2023-02-23 | CT_ITS ---
EXAMINATION: CT abdomen pelvis wo con DATE: 02/23/2023 13:41 INDICATION: Right flank pain. History of kidney stones. TECHNIQUE: Computed tomography (CT) of the abdomen and pelvis was performed without intravenous contr ast. Automated exposure control and iterative reconstruction technique were employed. Exam dose: 199 .81 mGy-cm total exam DLP. COMPARISON: 10/27/2022 CT abdomen pelvis FINDINGS: Minimal discoid atelectasis or scarring in the dependent left lower lobe. The lung bases ar e otherwise unremarkable. Normal heart size. No pericardial or pleural effusion. The liver, gallbladder, bile ducts, spleen, pancreas, pancreatic duct and adrenal glands and left kid solo are unremarkable. No left urinary tract calculus or hydroureteronephrosis. There are multiple right nonobstructing renal calculi, the largest measuring up to 7 mm. There is right nephromegaly, perinephric stranding on the right and moderate right hydroureteronephro sis due to distal right ureteral calculi, measuring 6.7 x 8.6 mm and 5 x 6 mm. The urinary bladder is relatively evacuated. Normal caliber of the abdominal aorta. No intraperitoneal or retroperitoneal or pelvic mass lesion or adenopathy or ascites is detected. The uterus, adnexal areas are unremarkable. The urinary bladder is relatively evacuated. No bowel obstruction or intraperitoneal free air is detected. Hardware is noted in both proximal femurs. IMPRESSION: Distal right ureterolithiasis with moderately prominent right hydroureteronephrosis Multiple nonobstructing right renal calculi, measuring up to 7 mm Reviewed, dictated and finalized at Location A. Reviewed, dictated and finalized at location L. IMPRESSION: Distal right ureterolithiasis with moderately prominent right hydr oureteronephrosis Multiple nonobstructing right renal calculi, measuring up to 7 mm
[2023-02-23 13:29] LABS: Appearance Urine Cloudy (Clear); Bilirubin Urine Negative (Negative); Blood Urine 3+ (Negative); Glucose Urine UA Negative (Negative); Ketones Urine Negative (Negative); Leukocyte Esterase Ur 2+ (Negative); Nitrate Urine Positive (Negative); Protein Urine 2+ (Negative); Specific Grav Ur 1.025 (1.010-1.020); pH Urine 6.5 (5.0-8.0)
[2023-02-23 13:31] LABS: Pregnancy On Board Control Positive; Urine Pregnancy Test Negative
[2023-02-23 13:38] LABS: Basophils Absolute Auto 0.02 K/mm3 (0.00-0.10); Basophils Percent Auto 0.1 % (0.0-1.0); Eosinophils Absolute Auto 0.01 K/mm3 (0.02-0.50); Eosinophils Percent Auto 0.1 % (1.0-6.0); Hematocrit 37.9 % (35.0-49.0); Hemoglobin 12.7 g/dL (12.0-15.0); Immature Granulocyte Absolute 0.35 K/mm3 (0.00-0.00); Immature Granulocyte Percent A 2.4 % (0.0-0.0); Lymphocytes Absolute Auto 0.33 K/mm3 (1.10-4.50); Lymphocytes Percent Auto 2.3 % (18.0-42.0); Mean Corpuscular HGB Conc 33.5 g/dL (32.0-36.0); Mean Corpuscular Hemoglobin 30.5 pg (27.0-31.0); Mean Corpuscular Volume 90.9 fL (78.0-102.0); Mean Platelet Volume 9.7 fl (9.2-11.8); Monocytes Absolute Auto 0.27 K/mm3 (0.10-0.90); Monocytes Percent Auto 1.9 % (2.0-11.0); Neutrophils Absolute Auto 13.4 K/mm3 (1.7-7.2); Neutrophils Percent Auto 93.2 % (50.0-70.0); Platelet Count Result 154 K/mm3 (150-420); Red Blood Count 4.17 M/mm3 (4.20-5.40); White Blood Count 14.4 K/mm3 (4.8-10.8)
[2023-02-23 13:38] LABS: Color Urine Dark Yellow (Yellow)
[2023-02-23 13:39] LABS: Add Urine Microscopic? YES; Bacteria Urine 1+ /hpf; RBC Urine 21-50 /hpf (0-2); Squamous Epithelial Cell Urine Rare /hpf (Few); WBC Urine >75 /hpf (0-3)
[2023-02-23 13:52] LABS: Alanine Aminotransferase 15 U/L (14-59); Albumin Level 3.3 g/dL (3.4-5.0); Alkaline Phosphatase 71 U/L (46-116); Anion Gap 12 mmol/L (8-16); Aspartate Amino Transferase 12 U/L (15-37); Bilirubin,Total 1.2 mg/dL (0.00-1.00); Blood Urea Nitrogen 12 mg/dL (7-18); Calcium 8.3 mg/dL (8.5-10.1); Carbon Dioxide 25 mmol/L (21-32); Chloride 97 mmol/L (98-108); Estimated CRCL calculation 57 ml/min; Estimated Glomerular Filt Rate 52; Glucose 108 mg/dL (70-99); Lipase 14 U/L (16-77); Osmolality Calculated 278 mOsm/kg (285-295); Potassium 3.6 mmol/L (3.5-5.1); Sodium 134 mmol/L (136-145); Total Protein 7.4 g/dL (6.4-8.2)
[2023-02-23] MEDS: KETOROLAC 30 MG/ML VIAL (*BKC) IM (13:59)
[2023-02-23] MEDS: ONDANSETRON HCL ODT 4 MG TABLET PO (14:00)
--- NOTE | 2023-02-23 14:26 | ED.ABDPAIN ---
HPI - Abdominal Pain General Chief Complaint: Urogenital-Female Stated Complaint: abdominal pain; kidney stones Time Seen by Provider: 02/23/23 13:22 Source: patient and family Mode of arrival: ambulatory Limitations: no limitations History of Present Illness HPI narrative: Patient presents to the emergency room with right-sided abdominal pain and feels this is related to kidney stones. She has baseline tachycardia and worse when she is in pain. She had lithotripsy done 1 year ago. She has had kidney stones for many years since childhood. MD elicited complaint: abdominal pain and flank pain Pertinent past history: past UTI Pain Consistency: constant Location: R flank Severity: moderate Pain scale (0-10): 8 Quality: sharp Radiation: back Migration to: R flank Exacerbating factors: nothing Relieving factors: nothing Associated symptoms: nausea and vomiting Related Data Patient : No Home Medications Medication Instructions Recorded Confirmed quetiapine 100 mg tablet (Seroquel) 300 mg PO HS 10/13/19 02/23/23 clonazepam 1 mg tablet 1 mg PO DAILY PRN Anxiety 12/19/19 02/23/23 Allergies Allergy/AdvReac Type Severity Reaction Status Date / Time No Known Allergies Allergy Verified 02/23/23 13:24 Review of Systems Review of Systems: All systems reviewed & are unremarkable except as noted in HPI and below Constitutional: Constitutional: Reports as per HPI and Reports no additional constitutional complaints ENT: Reports system reviewed and no additional complaints, except as documented Cardiovascular: Cardiovascular: Reports as per HPI, Reports no additional cardiovascular complaints, Denies chest pain, Reports rapid heart rate and Denies radiating jaw, neck or arm pain Respiratory: Respiratory: Reports as per HPI, Reports no additional respiratory complaints, Denies chest congestion, Denies cough and Denies dyspnea Gastrointestinal: Gastrointestinal: Reports as per HPI, Reports no additional gastrointestinal complaints, Reports abdominal pain, Reports nausea and Reports vomiting Genitourinary: Genitourinary: Reports no additional female genitourinary complaints, Reports as per HPI, Reports nocturia and Reports dysuria Musculoskeletal: Musculoskeletal: Reports no additional musculoskeletal complaints and Reports as per HPI Integumentary/Breasts: Skin/Breast: Reports system reviewed and no additional complaints, except as docu and Reports as per HPI Neurologic: Reports system reviewed and no additional complaints, except as documented and Reports as per HPI Endocrine: Endocrine: Reports no additional endocrine complaints and Reports as per HPI PMFSH Past Medical History Medical History Anxiety Asthma Bipolar 1 disorder, depressed Insect bite of right elbow with local reaction Renal calculi cystoscopy with stone retrieval age 10yo; hx of stones with spont passage Tachycardia Surgical History Surgical History History of orthopedic surgery Patient's 'hips turned out' requiring bilateral LE adry placements at age 15yo; had subsequent surgery to remove screws Hx of appendectomy Hx of meniscectomy of right knee Approx 2019 Family History Family History Father Diabetes mellitus Mother Breast cancer Kidney stone Social History Social History Social History: 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 She smokes half a pack a day for the past 9 years. She drinks 2 alcoholic drinks per month on average. 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 She lives at home with her fiance. His children are with them half the time. Patient is hopefully going to have her own 3 children with her full-time in the near future. She has 2 cats. She is a
[2023-02-23] MEDS: SODIUM CHLORIDE 0.9% IV 1,000 ML 999 ML IV CONT (14:39)
[2023-02-23] MEDS: MORPHINE SULFATE (*CRX) 2 MG/ML INJ IV PUSH (14:40)
[2023-02-23] MEDS: TAMSULOSIN HCL 0.4 MG CAPSULE PO (14:52)
== END 2023-02-23 18:10 | disposition short-term general hospital (02) ==
PROVIDERS: Emergency Provider Emergency Medicine; PCP Family Medicine
DX: N17.9 Acute kidney failure, unspecified (principal); N20.2 Calculus of kidney with calculus of ureter; R00.0 Tachycardia, unspecified; F41.9 Anxiety disorder, unspecified; J45.909 Unspecified asthma, uncomplicated; F17.210 Nicotine dependence, cigarettes, uncomplicated
CPT/HCPCS: 36415; 74176; 80053; 81001; 81025; 83690; 85025; 96361; 96365; 96372; 96375; 99285; A9270; J0696; J1885; J2270; J7030

== ENCOUNTER 2023-02-23 19:03 | Inpatient (IN) | payer OTHER, SELFPAY ==
--- NOTE | ~2023-02-23 | XR_ITS ---
EXAMINATION: XR stent kub - surgery DATE: 02/24/2023 10:49 INDICATION: Right internal ureteral stent placement TECHNIQUE: Fluoroscopic images from a right internal ureteral stent placement are submitted for hyun lazaro. 5 seconds of fluoroscopy time. FINDINGS: There is a right double-J internal ureteral stent projecting in expected position, with proximal [place] loop at the level of the renal pelvis and distal loop in the pelvis within the bladder lumen. IMPRESSION: 1. Right internal ureteral stent placement. Please refer to real-time procedural findings for detai ls. Reviewed, dictated and finalized at location A. IMPRESSION: 1. Right internal ureteral stent placement. Please refer to real-time procedu ral findings for details.
[2023-02-23 19:56] VITALS: BMI 25.5
[2023-02-23 19:57] VITALS: BP 108/58; PULSE 114; RESP 22; TEMP 38.2; O2SAT 98
[2023-02-23] MEDS: MORPHINE SULFATE (*CRX) 2 MG/ML INJ IV PUSH (20:15)
[2023-02-23] MEDS: SODIUM CHLORIDE 0.9% IV 1,000 ML 100 ML IV CONT (20:15)
[2023-02-23] MEDS: ACETAMINOPHEN 325 MG TABLET 650 MG PO (20:18)
--- NOTE | 2023-02-23 21:13 | ADMGEN ---
This patient, Anne Rosario, was admitted to Medical Room 343-01. Patient/family oriented to hospital policies and general routines including ID bracelet, bed and alarms, visiting hours, pain management, procedures, bathroom and other care routines, personal items, smoking policy, room service/diet, and visiting hours. Information on how to activate the Rapid Response Team has been discussed. Patient/Family are encouraged to report perceived risks to care and to ask questions if they do not understand what they are told or what they should do.
--- NOTE | 2023-02-23 21:48 | PM.IMHP ---
H&P: HPI History of Present Illness Date/Time: 02/23/23 19:30 Chief Complaint: Right-sided pain. Narrative: This is a 27-year-old female smoker with history of kidney stones, anxiety, bipolar disorder, and tachycardia who presented [place] [facility] [place]-sided pain pre the patient provides the following history. She reports the sudden onset of colicky pain in the right mid to low back similar to previous episodes of kidney stones. The pain radiates somewhat into the right flank and is associated with chills nausea, vomiting, and mild dysuria. Morphine and Toradol received at the outside facility did help a little bit. CT of the abdomen pelvis showed distal right ureterolithiasis with moderately prominent right hydroureteronephrosis. Transfer was initiated to [place] for urology consultation and definitive management. At the time my evaluation she is doing okay though is feeling a bit anxious. She denies fever, cold and flu symptoms, chest pain, palpitations, shortness a breath, hematemesis, diarrhea, hematuria. Review of Systems Review of Systems: Twelve systems were reviewed. No cold or flu symptoms. Denies sick contacts. She has chronic tachycardia and has no sensations of racing heart or palpitations. No chest or pleuritic pain. Except as documented, all other systems were reviewed and are negative. [facility] Past Medical History Medical History (Updated 02/23/23 @ 21:59 by Dulce Maria Auguste PA-C) Anxiety Asthma Bipolar 1 disorder, depressed Kidney stones Tachycardia Surgical History Surgical History History of appendectomy History of meniscectomy of right knee (2019) History of orthopedic surgery Patient's 'hips turned out' requiring bilateral LE adry placements at age 15yo; had subsequent surgery to remove screws Family History Family History Father Diabetes mellitus Mother Breast cancer Kidney stone Social History Social History (Updated 02/23/23 @ 21:56 by Dulce Maria Auguste PA-C) Social History: 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 She smokes 0.5 to 1 packs of cigarettes a day for at least the last 10 years. She drinks 2 alcoholic drinks per month on average. 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 She lives at home with her 3 children. She is a full code. She nominates her mother to be the individual would make medical decisions for her if she is unable. Smoking packs per day: 1 Smoking cigarettes per day: 20.0 Years smoked: 7 Smoking pack-years: 7.00 Smoking status: Never smoker Tobacco type: cigarettes Second hand tobacco smoke exposure: Yes Alcohol intake: never Drinks per week: 1 Substance use: former Substance use type: methamphetamine Last use: 2017 Lack of Transportation: No Lack of Food: Never True Current Housing: I Have Housing Concerned About Future Housing: No Difficulty Paying Gas/Electric Bills: No Difficulty Paying for Meds: No Currently Unemployed: No Education: High School Diploma/GED Difficulty w/ Childcare or Family Care: No Spiritual care concerns: No Meds Home Medications and Allergies Home Medications Medication Instructions Recorded Confirmed Type quetiapine 100 mg tablet (Seroquel) 300 mg PO HS 10/13/19 02/23/23 History clonazepam 1 mg tablet 1 mg PO DAILY PRN Anxiety 12/19/19 02/23/23 History albuterol 90 mcg/actuation aerosol 90 mcg inhalation QID PRN 02/23/23 02/23/23 History inhaler Shortness Of Breath Or Wheezing Allergies Allergy/AdvReac Type Severity Reaction Status Date / Time No Known Allergies Allergy Verified 02/23/23 13:24 Vital Signs Vital Signs - 24 hr 02/23/23 19:57 02/23/23 20:00 Temperature 100.8 F H Pulse Rate 114 H Respiratory Rate 22 H Blood Pres
[2023-02-23] MEDS: QUEtiapine FUMARATE 100 MG TABLET 300 MG PO (22:30)
[2023-02-24] VITALS (12 sets, daily range): BP systolic 84–113; BP diastolic 47–64; PULSE 67–111; RESP 16–23; TEMP 36.3–38.4; O2SAT 94–100
[2023-02-24] MEDS: MORPHINE SULFATE (*CRX) 2 MG/ML INJ IV PUSH ×2 (00:35→07:55)
[2023-02-24 07:20] LABS: Hematocrit 36.1 % (37.0-47.0); Hemoglobin 11.8 g/dL (12.0-15.0); Mean Corpuscular HGB Conc 32.7 g/dl (32-36); Mean Corpuscular Hemoglobin 29.8 pg (26-34); Mean Corpuscular Volume 91.2 fl (80-100); Mean Platelet Volume 10.2 fl (7.4-10.4); Platelet Count Result 136 k/mm3 (150-375); Red Blood Count 3.96 M/mm3 (4.2-5.4); Red Cell Distribution Width 13.2 % (11.5-14.5); White Blood Count 8.3 K/mm3 (4.5-10.0)
--- NOTE | 2023-02-24 07:23 | WPDURCON ---
Assessment and Plan Assessment and plan (1) Hydronephrosis with urinary obstruction due to ureteral calculus: Code(s): N13.2 - Hydronephrosis with renal and ureteral calculous obstruction Status: Acute (2) Urinary tract infection: Code(s): N39.0 - Urinary tract infection, site not specified Status: Acute Assessment and Plan: cystoscopy with right ureteral stent placement. If her urine grossly as if stone extracted with right with stone extraction. Patient is aware, that may not be do-able today and may require an additional procedure. Urology Consult Note HPI Date Seen: 02/24/23 Requesting Physician: Rodrigo Guillermo MD Primary Care Provider: Adams Ibarra M.D. Consult Narrative Narrative: Anne Rosario is a 27 year old female was transferred from [place] emergency department yesterday after presenting with right flank pain. Imaging demonstrated partially obstructing 7 mm right distal ureteral calculus with a possible smaller contiguous stone. Although she was feeling urine appeared. She was started antibiotics and transferred. She continues to have right flank pain and has had a low-grade fever. She denies gross hematuria Review of Systems Review of Systems: All systems reviewed & are unremarkable except as noted in HPI and below PMFSH Past Medical History Medical History (Updated 02/23/23 @ 21:59 by Dulce Maria Auguste PA-C) Anxiety Asthma Bipolar 1 disorder, depressed Kidney stones Tachycardia Surgical History Surgical History History of appendectomy History of meniscectomy of right knee (2019) History of orthopedic surgery Patient's 'hips turned out' requiring bilateral LE adry placements at age 15yo; had subsequent surgery to remove screws Family History Family History Father Diabetes mellitus Mother Breast cancer Kidney stone Social History Social History (Updated 02/23/23 @ 21:56 by Dulce Maria Auguste PA-C) Social History: 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 She smokes 0.5 to 1 packs of cigarettes a day for at least the last 10 years. She drinks 2 alcoholic drinks per month on average. 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 She lives at home with her 3 children. She is a full code. She nominates her mother to be the individual would make medical decisions for her if she is unable. Smoking packs per day: 1 Smoking cigarettes per day: 20.0 Years smoked: 7 Smoking pack-years: 7.00 Smoking status: Never smoker Tobacco type: cigarettes Second hand tobacco smoke exposure: Yes Alcohol intake: never Drinks per week: 1 Substance use: former Substance use type: methamphetamine Last use: 2017 Lack of Transportation: No Lack of Food: Never True Current Housing: I Have Housing Concerned About Future Housing: No Difficulty Paying Gas/Electric Bills: No Difficulty Paying for Meds: No Currently Unemployed: No Education: High School Diploma/GED Difficulty w/ Childcare or Family Care: No Spiritual care concerns: No Meds Home Medications and Allergies Home Medications Medication Instructions Recorded Confirmed Type quetiapine 100 mg tablet (Seroquel) 300 mg PO HS 10/13/19 02/23/23 History clonazepam 1 mg tablet 1 mg PO DAILY PRN Anxiety 12/19/19 02/23/23 History albuterol 90 mcg/actuation aerosol 90 mcg inhalation QID PRN 02/23/23 02/23/23 History inhaler Shortness Of Breath Or Wheezing Allergies Allergy/AdvReac Type Severity Reaction Status Date / Time No Known Allergies Allergy Verified 02/23/23 13:24 Vital Signs Vital Signs - 24 hr 02/23/23 19:57 02/23/23 20:00 Temperature 100.8 F H Pulse Rate 114 H Respiratory Rate 22 H Blood Pressure 108/58 L Pulse Oximetry 98 Oxygen Delivery Room Air Exam Const:
[2023-02-24 07:47] LABS: Anion Gap 10 mmol/L (8-16); Blood Urea Nitrogen 21 mg/dL (7-17); Calcium 7.4 mg/dL (8.4-10.2); Carbon Dioxide 22 mmol/L (22-30); Chloride 105 mmol/L (98-107); Estimated CRCL calculation 56 ml/min; Estimated Glomerular Filt Rate 53; Glucose 109 mg/dL (65-110); Magnesium 1.8 mg/dL (1.6-2.3); Potassium 3.6 mmol/L (3.4-5.0); Sodium 137 mmol/L (137-145)
[2023-02-24] MEDS: LACTATED RINGERS 1,000 ML 30 ML IV CONT ×2 (09:45→11:16)
--- NOTE | 2023-02-24 10:12 | WPDANESEPPF ---
Anes - Initial Pre Proc Eval Procedure: Operation Date: 02/24/23 10:30 Proposed Procedures p Cystoscopy,Right Ureteroscopy,Right Retrograde Pyelogram,Right Stone Extraction,Possible Holmium Laser,Possible Stent Placement - Ran West MD Date/Time: 02/24/23 10:12 Surgeon: Rodrigo Guillermo MD Pre Op Diagnosis: Obstructing Ureteral Stone Patient Data Age: 27 Gender: F Height: 1.65 m Weight: 69.6 kg Last Vital Signs Temp 38.2 C H 02/23/23 19:57 Pulse 114 H 02/23/23 19:57 Resp 22 H 02/23/23 19:57 BP 108/58 L 02/23/23 19:57 Pulse Ox 98 02/23/23 19:57 O2 Del Method Room Air 02/23/23 20:00 Allergies Allergy/AdvReac Type Severity Reaction Status Date / Time No Known Allergies Allergy Verified 02/23/23 13:24 Home Medications Medication Instructions Recorded Confirmed Type quetiapine 100 mg tablet (Seroquel) 300 mg PO HS 10/13/19 02/23/23 History clonazepam 1 mg tablet 1 mg PO DAILY PRN Anxiety 12/19/19 02/23/23 History albuterol 90 mcg/actuation aerosol 90 mcg inhalation QID PRN 02/23/23 02/23/23 History inhaler Shortness Of Breath Or Wheezing Laboratory Tests 02/24/23 02/24/23 05:00 06:17 WBC 8.3 K/mm3 (4.5-10.0) RBC 3.96 L M/mm3 (4.2-5.4) Hgb 11.8 L g/dL (12.0-15.0) Hct 36.1 L % (37.0-47.0) MCV 91.2 fl (80-100) MCH 29.8 pg (26-34) MCHC 32.7 g/dl (32-36) RDW 13.2 % (11.5-14.5) Plt Count 136 L k/mm3 (150-375) MPV 10.2 fl (7.4-10.4) Sodium 137 mmol/L (137-145) Potassium 3.6 mmol/L (3.4-5.0) Chloride 105 mmol/L (98-107) Carbon Dioxide 22 mmol/L (22-30) Anion Gap 10 mmol/L (8-16) BUN 21 H D mg/dL (7-17) Creatinine 1.20 H mg/dL (0.7-1.0) Estim Creat Clear Calc 56 ml/min Estimated GFR 53 L (59 - ) Glucose 109 mg/dL (65-110) Calcium 7.4 L mg/dL (8.4-10.2) Magnesium 1.8 mg/dL (1.6-2.3) Patient hx anesthesia problems: none Family hx anesthesia problems: none Results Review: All pre-operative results and documents have been reviewed as part of the pre-operative evaluation. 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 She smokes 0.5 to 1 packs of cigarettes a day for at least the last 10 years. She drinks 2 alcoholic drinks per month on average. 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 She lives at home with her 3 children. She is a full code. She nominates her mother to be the individual would make medical decisions for her if she is unable. Smoking packs per day: 1 Smoking cigarettes per day: 20.0 Years smoked: 7 Smoking pack-years: 7.00 Smoking status: Never smoker Tobacco type: cigarettes Second hand tobacco smoke exposure: Yes Alcohol intake: never Drinks per week: 1 Substance use: former Substance use type: methamphetamine Last use: 2017 Lack of Transportation: No Lack of Food: Never True Current Housing: I Have Housing Concerned About Future Housing: No Difficulty Paying Gas/Electric Bills: No Difficulty Paying for Meds: No Currently Unemployed: No
--- NOTE | 2023-02-24 10:21 | WPDHPUPDATE1 ---
History and Physical Update Update Date/Time: 02/24/23 10:21 History and Physical has been reviewed, including an updated exam of the patient. There are NO changes in the patient's condition. Risks, benefits, and alternatives have been discussed and questions answered. Patient agrees to proceed with procedure.
[2023-02-24] MEDS: LIDOCAINE HCL 2% GEL UROJET 10 ML PKG MUCOUS MEM (10:44)
--- NOTE | 2023-02-24 10:47 | W.PM.PROC2 ---
Procedure Note - Detailed Date of Procedure 02/24/23 Pre-op Diagnosis Obstructing Right Ureteral Stone, UTI Post-op Diagnosis Same Procedure Performed Cystoscopy, right ureteral stent placement Surgeon Ran West MD Anesthesia General Description of Procedure The patient was brought to the operative suite where she was prepped and draped in a routine sterile fashion while in the dorsal lithotomy position. After the uneventful induction of GLMA anesthesia a 19 F rigid cystoscope was placed in her bladder and the bladder was circumferentially inspected. The bladder neck and urethra were endoscopically normal. The bladder mucosa was without hyperemia. There was no intravesical foreign body or neoplasm. There was a single orthotopic ureteral orifice bilaterally. I advanced .035 glidewire into the right renal pelvis under fluoroscopy. A 4.8F variable length ureteral stent was positioned with the proximal coil in the renal pelvis and the distal coil in the bladder. Scopes and wires were removed after emptying the patient's bladder. Urine Output 600 Drains Yes Packing No Pathology None sent Complications No immediate complications
--- NOTE | 2023-02-24 11:08 | SUR.PHASEI ---
attempt to call Dr. Ryan x2 to notifiy him that patient is febrile. Last dose of Acetaminophen was last night. No answer. Will attempt a repeat phone call.
--- NOTE | 2023-02-24 11:16 | SUR.PHASEI ---
Able to Reach Dr. Ryan. notified md of patient's temperature. New orders received to administer acetaminophen po once patient is more awake.
[2023-02-24] MEDS: ACETAMINOPHEN 500 MG TABLET 1000 MG PO (11:31)
--- NOTE | 2023-02-24 11:58 | PC.NURSE ---
Pt returned to room from PACU and is resting comfortable with family at bedside
--- NOTE | 2023-02-24 14:59 | PM.IMPN ---
Progress Note: A&P Assessment and Plan (1) Hydronephrosis with urinary obstruction due to ureteral calculus: Code(s): N13.2 - Hydronephrosis with renal and ureteral calculous obstruction Status: Acute Assessment and Plan: Patient had right ureteral stone causing hydronephrosis +findings urinary tract infection. She is on Rocephin and urine culture is in process. (2) Acute kidney injury: Code(s): N17.9 - Acute kidney failure, unspecified Status: Acute Assessment and Plan: Baseline creatinine 0.6-0.8 currently noted to be 1.2 with BUN of 21. Patient receiving IV fluids and IV antibiotics with ureteral stent in place to relieve obstruction caused by right distal ureteral stone. (3) Urinary tract infection: Code(s): N39.0 - Urinary tract infection, site not specified Status: Acute (4) Tachycardia: Code(s): R00.0 - Tachycardia, unspecified Status: Acute Assessment and Plan: Patient reports baseline tachycardia at all times heart rate noted to be approximately 100 on evaluation (5) Bipolar 1 disorder, depressed: Code(s): F31.9 - Bipolar disorder, unspecified Status: Acute Assessment and Plan: Mood appears well-controlled at this time postanesthesia. Patient denies suicidal ideation homicidal ideation or hallucinations. (6) Anxiety: Code(s): F41.9 - Anxiety disorder, unspecified Status: Acute Assessment and Plan: Mood appears well-controlled at this time postanesthesia (7) Staghorn calculus: Code(s): N20.0 - Calculus of kidney Status: Acute Assessment and Plan: Will plan to keep stent in place and follow up at [facility] to address her stone with PCNL. (8) Pyelonephritis: Code(s): N12 - Tubulo-interstitial nephritis, not specified as acute or chronic Status: Acute Assessment and Plan: Continue IV antibiotics, tailor to culture results, ok to discharge when sensitivity report is given on appropriate course of oral antibiotics. Ok to continue Oxybutynin at home for stent discomfort. No further evaluation is needed at this time, she will be watched from a distance until discharge. Plan Continue IV fluids and IV antibiotics. Once urine culture and sensitivity is back we will transition to oral antibiotics and plan to discharge the patient to follow up at [facility] as recommended by Urology for PCNL. Subjective Date/time seen: 02/24/23 14:59 Interval history: 02/24 Rounding: Patient is resting postoperative after right ureteral stent. Patient had urinary tract infection with presence of 7 mm stone in the right distal ureter partially obstructing with hydronephrosis. She reports that her pain is well controlled and she has no nausea at this time however earlier this morning before surgery she had significant right lower abdominal and right flank pain with some nausea. Patient appears somewhat somnolent after anesthesia. She does drift off to sleep while speaking with me. Review of Systems Review of Systems: ROS unobtainable: Yes unobtainable due to medical condition (Postanesthesia drowsiness) Exam Narrative: General: Comfortable appearing 27-year-old female in bed lying on right side. HEENT: PERRL, EOMI. Sclera anicteric. Tacky mucous membranes. Neck: Supple. No JVD Respiratory: Lungs are clear to auscultation bilaterally. No respiratory distress Cardiovascular: Tachycardic with normal S1-S2. Gastrointestinal: Abdomen is soft and nondistended with positive bowel sounds. Mild right CVA tenderness right lower quadrant tenderness to palpation. No guarding or rebound tenderness. Skin: Warm and dry. No rash or lesions on limited exam. Extremities: No cyanosis, clubbing, or edema. Radial and pedal pulses intact. Neurological: Alert. Cranial nerves 2-12 are grossly intact. No gross focal deficits to casual conversation. Psychiatric: Pleasant and cooperative appears to have normal mood
[2023-02-24] MEDS: SODIUM CHLORIDE 0.9% IV 1,000 ML 100 ML IV CONT (16:46)
[2023-02-24] MEDS: HYDROcodone/acetaminophen (*CRX) 5-325 MG TABLET 1 TAB PO (20:37)
[2023-02-24] MEDS: QUEtiapine FUMARATE 100 MG TABLET 300 MG PO (20:37)
[2023-02-25 05:23] LABS: Thyroid Stimulating Hormone Reflex 0.589 uIU/mL (0.465-4.68)
[2023-02-25 05:44] VITALS: BP 103/68; PULSE 62; RESP 16; TEMP 36.4; O2SAT 94
[2023-02-25] MEDS: LACTATED RINGERS 1,000 ML 100 ML IV CONT (06:25)
[2023-02-25 06:27] LABS: Basophils Percent Auto 0.1 % (0.2-1.2); Eosinophils Percent Auto 0.1 % (0-4.4); Hematocrit 34.1 % (37.0-47.0); Hemoglobin 11.3 g/dL (12.0-15.0); Immature Granulocyte Absolute 0.25 K/mm3 (0.00-0.031); Immature Granulocyte Percent A 2.5 % (0-0.5); Lymphocytes Absolute Auto 0.57 K/mm3 (0.9-3.2); Lymphocytes Percent Auto 5.8 % (18.3-44.2); Mean Corpuscular HGB Conc 33.1 g/dl (32-36); Mean Corpuscular Hemoglobin 29.8 pg (26-34); Mean Platelet Volume 10.5 fl (7.4-10.4); Monocytes Absolute Auto 0.6 K/mm3 (0.1-0.6); Neutrophils Absolute Auto 8.4 K/mm3 (1.3-6.7); Neutrophils Percent Auto 85.5 % (45.5-73.1); Platelet Count Result 146 k/mm3 (150-375); Red Blood Count 3.79 M/mm3 (4.2-5.4); Red Cell Distribution Width 13.1 % (11.5-14.5); White Blood Count 9.9 K/mm3 (4.5-10.0)
[2023-02-25 06:38] LABS: Anion Gap 8 mmol/L (8-16); Blood Urea Nitrogen 18 mg/dL (7-17); Calcium 8.4 mg/dL (8.4-10.2); Carbon Dioxide 20 mmol/L (22-30); Chloride 110 mmol/L (98-107); Estimated CRCL calculation 93 ml/min; Estimated Glomerular Filt Rate > 60; Glucose 124 mg/dL (65-110); Potassium 4.4 mmol/L (3.4-5.0); Sodium 138 mmol/L (137-145)
[2023-02-25] MEDS: HYDROcodone/acetaminophen (*CRX) 5-325 MG TABLET 1 TAB PO ×2 (08:48→21:24)
[2023-02-25 09:51] VITALS: BP 109/82; PULSE 79; RESP 18; TEMP 36.1; O2SAT 99
--- NOTE | 2023-02-25 11:48 | WPDUROPN2 ---
Progress Note: A&P Assessment and Plan (1) Acute kidney injury: Code(s): N17.9 - Acute kidney failure, unspecified Status: Acute (2) Urinary tract infection: Code(s): N39.0 - Urinary tract infection, site not specified Status: Acute (3) Hydronephrosis with urinary obstruction due to ureteral calculus: Code(s): N13.2 - Hydronephrosis with renal and ureteral calculous obstruction Status: Acute Plan POD#1 s/p R stent placement. She is clinically improving with nl wbc ct and Cr normalized. Pending urine and blood culture results. Continue rocephin until final results are back then tailor PO abx. Continue to strain urine. Dr West is arranging stone surgery as an outpatient. Please call with questions Subjective Subjective Date/Time Seen: 02/25/23 11:48 Interval history: Pt is doing OK. Having some stent irritation Review of Systems Constitutional: Constitutional: Reports as per HPI Exam Const: General: comfortable and no acute distress HENMT: Face/Nose/Sinus: Normal nares present Eyes: General: appearance normal, both eyes and all related structures Neck: Neck: supple Resp: Effort & Inspection: normal respiratory effort GI: GI Palp: Yes Soft to palpation Objective Data Vital Signs Vital Signs: Vital Signs - 24 hr 02/24/23 12:00 02/24/23 12:45 02/24/23 13:45 Temperature 36.3 C L 36.3 C L 36.5 C Pulse Rate 109 H 98 101 H Respiratory Rate 18 18 16 Blood Pressure 104/53 L 100/52 L 99/54 L Pulse Oximetry 100 94 97 Oxygen Delivery 02/24/23 12:15 02/24/23 19:12 02/24/23 22:24 Temperature 36.6 C 36.5 C 36.7 C Pulse Rate 100 103 H 67 Respiratory Rate 18 18 18 Blood Pressure 106/53 L 93/58 L 102/60 Pulse Oximetry 94 100 100 Oxygen Delivery 02/24/23 20:00 02/25/23 05:44 02/25/23 09:51 Temperature 36.4 C 36.1 C L Pulse Rate 62 79 Respiratory Rate 16 18 Blood Pressure 103/68 109/82 Pulse Oximetry 94 99 Oxygen Delivery Room Air Intake/Output Intake/Output: Intake & Output 02/22/23 02/23/23 02/24/2302/25/23 23:59 23:59 23:59 23:59 Intake Total 50 2830 290 Output Total 200 1200 Balance -150 1630 290 Meds/Results Medications: Active Medications Generic Name Dose Route Start Last Admin Trade Name Freq PRN Reason Stop Dose Admin Acetaminophen 650 mg 02/23/23 19:26 02/23/23 20:18 Acetaminophen 325 Mg Tablet PO 650 mg Q4H PRN Administration Mild Pain (1-3) or Fever Hydrocodone Bitart/Acetaminophen 1 tab 02/23/23 19:26 02/25/23 08:48 Hydrocodone/Acetaminophen (*Crx) 5-325 Mg Tablet PO 1 tab Q4H PRN Administration Moderate Pain (4-6) Albuterol 2 puff 02/24/23 09:00 Albuterol Sulfate (*Sp) Aerosol 1 Puff INHALATION QID PRN Shortness Of Breath Clonazepam 1 mg 02/23/23 21:47 Clonazepam (*Crx) 0.5 Mg Tablet PO DAILY PRN Anxiety Fentanyl Citrate 25 mcg 02/24/23 10:13 Fentanyl Citrate Inj (*Crx) 100 Mcg/2 Ml Vial IV PUSH Q2M PRN Pain Ceftriaxone Sodium 1 gm in 50 mls @ 100 mls/hr 02/23/23 20:00 02/25/23 05:27 Rocephin 1 Gm/Ns 50 Ml IVPB Infused Q24H YESENIA Infusion Lactated Ringer's 1,000 mls @ 100 mls/hr 02/24/23 17:30 02/25/23 06:25 Lr - Lactated Ringers Iv IV CONT 100 mls/hr .Q10H YESENIA Administration Morphine Sulfate 2 mg 02/23/23 19:26 02/24/23 07:55 Morphine Sulfate (*Crx) 2 Mg/Ml Inj IV PUSH 2 mg Q4H PRN Administration Pain Rated 7-10 Ondansetron HCl 4 mg 02/23/23 19:26 Ondansetron Inj 4 Mg/2 Ml Vial IV PUSH Q6H PRN Nausea And Vomiting Ondansetron HCl 4 mg 02/24/23 10:13 Ondansetron Inj 4 Mg/2 Ml Vial IV PUSH ONCE PRN Nausea Quetiapine Fumarate 300 mg 02/23/23 22:00 02/24/23 20:37 Quetiapine Fumarate 100 Mg Tablet PO 300 mg HS YESENIA Administration Radiology Results: ITS Impressions Ureter Stent X-Ray 02/24/23 11:38 IMPRESSION: 1. Right inter
--- NOTE | 2023-02-25 12:52 | PM.IMPN ---
Progress Note: A&P Assessment and Plan (1) Hydronephrosis with urinary obstruction due to ureteral calculus: Code(s): N13.2 - Hydronephrosis with renal and ureteral calculous obstruction Status: Acute Assessment and Plan: Patient had right ureteral stone causing hydronephrosis +findings urinary tract infection. She is on Rocephin and urine culture is in process. (2) Acute kidney injury: Code(s): N17.9 - Acute kidney failure, unspecified Status: Acute Assessment and Plan: Baseline creatinine 0.6-0.8 currently noted to be 1.2 with BUN of 21. Patient receiving IV fluids and IV antibiotics with ureteral stent in place to relieve obstruction caused by right distal ureteral stone. (3) Urinary tract infection: Code(s): N39.0 - Urinary tract infection, site not specified Status: Acute Assessment and Plan: Urine culture in progress (4) Tachycardia: Code(s): R00.0 - Tachycardia, unspecified Status: Acute Assessment and Plan: Patient reports baseline tachycardia at all times heart rate noted to be approximately 100 on evaluation (5) Bipolar 1 disorder, depressed: Code(s): F31.9 - Bipolar disorder, unspecified Status: Acute Assessment and Plan: Mood appears normal. Patient denies suicidal ideation homicidal ideation or hallucinations. (6) Anxiety: Code(s): F41.9 - Anxiety disorder, unspecified Status: Acute Assessment and Plan: Mood appears normal (7) Staghorn calculus: Code(s): N20.0 - Calculus of kidney Status: Acute Assessment and Plan: Will plan to keep stent in place and follow up at [facility] to address her stone with PCNL. (8) Pyelonephritis: Code(s): N12 - Tubulo-interstitial nephritis, not specified as acute or chronic Status: Acute Assessment and Plan: Continue IV antibiotics, tailor to culture results, ok to discharge when sensitivity report is given on appropriate course of oral antibiotics. Ok to continue Oxybutynin at home for stent discomfort. Plan Continue IV fluids and IV antibiotics. Once urine culture and sensitivity is back we will transition to oral antibiotics and plan to discharge the patient to follow up at [facility] as recommended by Urology for PCNL. Time Spent With Patient Time with patient: 25 - 35 minutes Subjective Date/time seen: 02/25/23 08:15 Interval history: 02/24 Rounding: Patient is resting postoperative after right ureteral stent. Patient had urinary tract infection with presence of 7 mm stone in the right distal ureter partially obstructing with hydronephrosis. She reports that her pain is well controlled and she has no nausea at this time however earlier this morning before surgery she had significant right lower abdominal and right flank pain with some nausea. Patient appears somewhat somnolent after anesthesia. She does drift off to sleep while speaking with me. 02/25 Rounding: Patient seen seated in bed eating breakfast. She continues to complain right flank pain along with hematuria and discomfort with urination. Patient denies any fever chills but states that overall she does not feel back to normal status. Previously patient had been considering leaving against medical advice however she notes that her reason for wanting to do so was to work tonight and now she knows that she is not going to feel well enough to be able to work tonight so she agreed that she should stay in the hospital and await urine cultures and sensitivity. Patient denies any chest pain shortness a breath nausea vomiting constipation or diarrhea. Review of Systems Review of Systems: All systems reviewed & are unremarkable except as noted in HPI and below Exam Narrative: General: Uncomfortable appearing 27-year-old female seated upright in the bed with facial grimacing he HEENT: PERRL, EOMI. Moist mucous membranes. Neck: Supple. No JVD Respiratory: Lungs a
[2023-02-25 14:29] VITALS: BP 94/52; PULSE 71; RESP 16; TEMP 36.3; O2SAT 98
[2023-02-25] MEDS: ACETAMINOPHEN 325 MG TABLET 650 MG PO (16:14)
[2023-02-25] MEDS: clonazePAM (*CRX) 0.5 MG TABLET 1 MG PO (17:19)
[2023-02-25] MEDS: NICOTINE (*PBKC) 21 MG PATCH 1 PATCH TRANSDERM (21:15)
[2023-02-25] MEDS: QUEtiapine FUMARATE 100 MG TABLET 300 MG PO (21:19)
[2023-02-25 21:28] VITALS: BP 113/66; PULSE 88; RESP 18; TEMP 36.3; O2SAT 99
[2023-02-26] MEDS: HYDROcodone/acetaminophen (*CRX) 5-325 MG TABLET 1 TAB PO (04:23)
[2023-02-26 06:00] VITALS: BP 97/60; PULSE 98; RESP 18; TEMP 36.4; O2SAT 99
[2023-02-26 06:26] LABS: Basophils Percent Auto 0.2 % (0.2-1.2); Eosinophils Absolute Auto 0.1 K/mm3 (0-0.3); Eosinophils Percent Auto 1.1 % (0-4.4); Hemoglobin 11.3 g/dL (12.0-15.0); Immature Granulocyte Absolute 0.04 K/mm3 (0.00-0.031); Immature Granulocyte Percent A 0.7 % (0-0.5); Lymphocytes Absolute Auto 1.09 K/mm3 (0.9-3.2); Lymphocytes Percent Auto 20.3 % (18.3-44.2); Mean Corpuscular HGB Conc 33.2 g/dl (32-36); Mean Corpuscular Hemoglobin 29.3 pg (26-34); Mean Corpuscular Volume 88.1 fl (80-100); Mean Platelet Volume 10.1 fl (7.4-10.4); Monocytes Absolute Auto 0.5 K/mm3 (0.1-0.6); Monocytes Percent Auto 9.1 % (2.6-8.5); Neutrophils Absolute Auto 3.7 K/mm3 (1.3-6.7); Neutrophils Percent Auto 68.6 % (45.5-73.1); Platelet Count Result 151 k/mm3 (150-375); Red Blood Count 3.86 M/mm3 (4.2-5.4); Red Cell Distribution Width 13.2 % (11.5-14.5); White Blood Count 5.4 K/mm3 (4.5-10.0)
[2023-02-26 06:36] LABS: Anion Gap 11 mmol/L (8-16); Blood Urea Nitrogen 13 mg/dL (7-17); Calcium 8.5 mg/dL (8.4-10.2); Carbon Dioxide 21 mmol/L (22-30); Chloride 105 mmol/L (98-107); Estimated CRCL calculation 107 ml/min; Estimated Glomerular Filt Rate > 60; Glucose 101 mg/dL (65-110); Potassium 3.2 mmol/L (3.4-5.0); Sodium 137 mmol/L (137-145)
--- NOTE | 2023-02-26 10:22 | PM.DS ---
DS: Admitting Diagnosis Discharge Date 02/26/2023 Admitting Diagnosis Acute kidney injury Hydronephrosis with urinary obstruction due to ureteral calculus Urinary tract infection Kidney stones Tachycardia Bipolar 1 disorder, depressed Anxiety DS: Discharge Diagnosis Discharge Diagnosis (1) Pyelonephritis: Code(s): N12 - Tubulo-interstitial nephritis, not specified as acute or chronic Status: Acute (2) Hydronephrosis with urinary obstruction due to ureteral calculus: Code(s): N13.2 - Hydronephrosis with renal and ureteral calculous obstruction Status: Acute (3) Acute kidney injury: Code(s): N17.9 - Acute kidney failure, unspecified Status: Acute (4) Anxiety: Code(s): F41.9 - Anxiety disorder, unspecified Status: Acute (5) Bipolar 1 disorder, depressed: Code(s): F31.9 - Bipolar disorder, unspecified Status: Acute (6) Tobacco abuse: Code(s): Z72.0 - Tobacco use Status: Acute DS: Summary Hospital Course Reason for hospitalization: This is a 27-year-old female patient admitted to the hospital for right ureteral obstruction with hydronephrosis in the setting of UA concerning for urinary tract infection. Hospital Course: Patient was taken to the operating room by Urology and a right ureteral stent was placed. Unable to remove obstructing stone at this time. Urology report suggests significant infection noted and patient should remain on IV Rocephin pending urine culture results. Each of the last 2 evenings of hospital stay patient became very anxious and threatened to leave AMA. Both evenings she calmed down and decided to stay. Initial urine culture returned without growth. Repeat urine culture ordered prior to discharge and we will follow up on such. Patient was discharged with prescriptions for cefdinir bid for 5 days, Nicotine patches, oxybutynin due to discomfort of urinary stent remaining in place and a few doses of hydrocodone/acetaminophen for severe pain only. Patient instructed to follow up with [facility] for PCNL for remaining right staghorn calculi. Status at Discharge Cognitive/behavioral status at discharge: awake, alert, oriented and calm Functional status at discharge: independent ambulation Overall status at discharge: patient is progressing back to baseline Time Spent with Patient Time attestation: Total time spent providing and/or coordinating discharge services: Time spent: Less than 30 minutes Exam Narrative: General: Generally comfortable appearing, calm and oriented. No acute distress noted. HEENT: PERRL, EOMI. Moist mucous membranes. Neck: Supple. No JVD Respiratory: Lungs are clear to auscultation bilaterally. No respiratory distress Cardiovascular: Minimally tachycardic with normal S1-S2, baseline per patient history Gastrointestinal: Abdomen is soft and nondistended with positive bowel sounds. Mild to moderate right CVA tenderness and right lower quadrant tenderness to palpation. No guarding or rebound tenderness. Skin: Warm and dry. No rash or lesions on limited exam. Extremities: No cyanosis, clubbing, or edema. Radial and pedal pulses intact. Neurological: Alert. Cranial nerves 2-12 are grossly intact. No gross focal deficits to casual conversation. Psychiatric: Pleasant and cooperative appears to have normal mood, reports panic attack yesterday evening. DS: Data Data Completed and Pending Pending studies at discharge: Urine culture and blood cultures, no growth to date Labs on day of discharge: Labs from last 24 hours 02/26/23 06:03 WBC 5.4 RBC 3.86 L Hgb 11.3 L Hct 34.0 L MCV 88.1 MCH 29.3 MCHC 33.2 RDW 13.2 Plt Count 151 MPV 10.1 Immature Gran % (Auto) 0.7 H Neut % (Auto) 68.6 Lymph % (Auto) 20.3 [place] % (Auto) 9.1 H Eos % (Auto) 1.1 Baso % (Auto) 0.2 Lymph # (Auto) 1.09 [place] # (Auto) 0.5 Eos # (Auto) 0.1 Baso # (Auto) 0.0 Abs I
--- NOTE | 2023-03-03 10:14 | PC.NURSE ---
Blood and Urine cultures are all negative.
== END 2023-02-26 12:57 | disposition home or self-care (01) | DRG 463 ==
PROVIDERS: Physician Assistant; Urology; Admitting Provider Family Medicine; PCP Family Medicine; Visit Provider Nurse Practitioner
PROC: 0T768DZ Dilation of Right Ureter with Intraluminal Device, Via Natural or Artificial Opening Endoscopic (ICD-10-PCS; CPT 52352; principal; 2023-02-24 10:30)
DX: N13.6 Pyonephrosis (principal); N17.9 Acute kidney failure, unspecified; F17.210 Nicotine dependence, cigarettes, uncomplicated; F31.9 Bipolar disorder, unspecified; F41.9 Anxiety disorder, unspecified; R00.0 Tachycardia, unspecified; Z90.49 Acquired absence of other specified parts of digestive tract
CPT/HCPCS: 36415; 80048; 83735; 84443; 85025; 85027; 87040; 87086; 87088; A9270; C1769; C2617; G0378; G0379; J0696; J1100; J2250; J2270; J2405; J2704; J3010; J7030; J7120

== ENCOUNTER 2023-03-02 03:10 | Day surgery (SDC) | payer OTHER, SELFPAY ==
[2023-02-28 12:29] VITALS: BMI 25.4
--- NOTE | 2023-02-28 12:35 | PC.NURSE ---
Report to the Outpatient Waiting Room, entrance under the green pavilion located off [facility], at time 0600 on date 03/02/23. Planned Procedure Time: 0730. Time changes happen often and if your time is changed the preop area will call you the afternoon before. - You and your visitor will be asked to self-screen and do not enter if you have any COVID symptoms. - A mask is optional within the hospital at this time. Patients may have clear liquids (water, carbonated beverages, clear teas, apple juice) until 3 hours prior to surgery with a maximum of 20 ounces. - No food from midnight until time of surgery Take the following medications with a SIP of water the morning of surgery: INHALER IF NEEDED, CEFDINIT, CLONAZEPAM IF NEEDED, PAIN PILL IF NEEDED DO NOT STOP ANY OF YOUR OTHER PRESCRIPTION MEDICATIONS PRIOR TO SURGERY ?EXCEPT THE FOLLOWING Medications to discontinue per physician: N/A Date to take last dose: N/A Please no make-up, nail kiswahili, hairspray, perfume, deodorant, or body powder the day of surgery. No jewelry (including any body piercings) or valuables the day of surgery, leave them at home. Please take a shower or bath the night before, or the morning of, surgery with an antibacterial soap. Wear comfortable, loose fitting clothing. - Jewelry must be removed prior to entering the operating room. Rings and piercings that are not removed may be cut off. - The hospital will not accept responsibility for valuables. - Please leave all valuables, including medications, at home the day of surgery. If you are going home after surgery, a licensed substitute bus driver must drive you home. - NO public transportation without another adult if you receive anesthesia. - We recommend that an adult stay with you for 24 hours following discharge. - We also recommend that you do not drive, make important decision, drink alcoholic beverages, or take any drugs that were not prescribed by your health care provider for at least 24 hours after your discharge time. Follow any additional instructions given to you from your surgeon. If you or anyone in your household have experienced Covid symptoms in the past week, please notify your surgeon or the nurse liaison at the phone number below for possible testing. Telephone instructions given to PT - INDIA LINDSEY and asked if any additional questions and then verbalized understanding. Patient advised to call surgeon office or pre surgery nurse liaison [phone] if any additional questions.
--- NOTE | 2023-03-01 11:45 | PM.HPGS ---
History of Present Illness History of Present Illness Consent: Risks, benefits, and alternatives have been discussed and questions answered. Patient agrees to proceed with procedure. Chief complaint: right ureteral stone Narrative: Anne Rosario is a 27 year old female recently admitted with a right distal ureteral obstructing stone and urinary tract infection. A stent was placed. She now presents for definitive stone management after treatment for the UTI. Review of Systems Cardiovascular: Cardiovascular: Denies chest pain, Denies lightheadedness, Denies palpitations and Denies dyspnea Respiratory: Respiratory: Denies dyspnea Gastrointestinal: Gastrointestinal: Denies diarrhea, Denies nausea and Denies vomiting Genitourinary: Genitourinary: Denies hematuria and Denies dysuria Endocrine: Endocrine: Denies palpitations PMFSH Past Medical History Medical History Anxiety Asthma Bipolar 1 disorder, depressed Kidney stones Tachycardia Surgical History Surgical History History of appendectomy History of meniscectomy of right knee (2019) History of orthopedic surgery Patient's 'hips turned out' requiring bilateral LE adry placements at age 15yo; had subsequent surgery to remove screws Family History Family History Father Diabetes mellitus Mother Breast cancer Kidney stone Social History Social History Social History: 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 She smokes 0.5 to 1 packs of cigarettes a day for at least the last 10 years. She drinks 2 alcoholic drinks per month on average. 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 She lives at home with her 3 children. She is a full code. She nominates her mother to be the individual would make medical decisions for her if she is unable. Smoking packs per day: 1 Smoking cigarettes per day: 20.0 Years smoked: 13 Smoking pack-years: 13.00 Smoking status: Current every day smoker Tobacco type: cigarettes Second hand tobacco smoke exposure: Yes Alcohol intake: current Drinks per week: 1 Alcohol use details: 2/MONTH Substance use: current Substance use type: marijuana Last use: 2017 Lack of Transportation: No Lack of Food: Never True Current Housing: I Have Housing Concerned About Future Housing: No Difficulty Paying Gas/Electric Bills: No Difficulty Paying for Meds: No Currently Unemployed: No Education: High School Diploma/GED Difficulty w/ Childcare or Family Care: No Living arrangements: with family Additional living arrangements comments: CHILDREN Spiritual care concerns: No Meds Home Medications and Allergies Home Medications Medication Instructions Recorded Confirmed Type quetiapine 100 mg tablet (Seroquel) 300 mg PO HS 10/13/19 02/28/23 History clonazepam 1 mg tablet 1 mg PO DAILY PRN Anxiety 12/19/19 02/28/23 History albuterol 90 mcg/actuation aerosol 90 mcg inhalation QID PRN 02/23/23 02/28/23 History inhaler Shortness Of Breath Or Wheezing cefdinir 300 mg capsule 300 mg PO Q12H #10 caps 02/26/23 02/28/23 Rx hydrocodone 5 mg-acetaminophen 325 1 tablet PO Q6H PRN pain #12 tabs 02/26/23 02/28/23 Rx mg tablet hydrocodone 5 mg-acetaminophen 325 1 tablet PO Q6H PRN pain #12 tabs 02/26/23 02/28/23 Rx mg tablet nicotine 21 mg/24 hr daily 1 patch transdermal QAM #30 ea 02/26/23 02/28/23 Rx transdermal patch (Nicoderm CQ) ondansetron 4 mg disintegrating 4 mg PO Q6H PRN nausea and 02/26/23 02/28/23 Rx tablet vomiting #14 tabs oxybutynin chloride 10 mg 10 mg PO DAILY #10 tabs 02/26/23 02/28/23 Rx tablet,extended release 24 hr Allergies Allergy/AdvReac Type Severity Reaction Status Date / Time No Known Arnel
[2023-03-02] VITALS (9 sets, daily range): BP systolic 103–148; BP diastolic 64–87; PULSE 84–105; RESP 15–28; TEMP 36.3–37.1; O2SAT 98–100
--- NOTE | ~2023-03-02 | XR_ITS ---
EXAMINATION: XR stent kub - surgery DATE: 03/02/2023 08:32 INDICATION: Right internal ureteral stent placement TECHNIQUE: Fluoroscopic images from a right internal ureteral stent placement are submitted for [place] 12 seconds of fluoroscopy time. 4 fluoroscopic images FINDINGS: There is a right double-J internal ureteral stent projecting in expected position, with proximal Browning loop at the level of the renal pelvis and distal loop in the pelvis within the bladder lumen. IMPRESSION: 1. Right internal ureteral stent placement. Please refer to real-time procedural findings for marianna vyas. Reviewed, dictated and finalized at location A. IMPRESSION: 1. Right internal ureteral stent placement. Please refer to real-time procedu ral findings for details.
--- NOTE | 2023-03-02 06:35 | WPDANESEPPF ---
Anes - Initial Pre Proc Eval Procedure: Operation Date: 03/02/23 07:30 Proposed Procedures p Cystoscopy, Right Ureteroscopy, Right Retrograde Pyelogram, Right Stone Extraction, Right Stent Placement, Possible Holmium Laser - Ran West MD Date/Time: 03/02/23 06:35 Surgeon: Ran West MD Pre Op Diagnosis: right ureteral stone Patient Data Age: 27 Gender: F Height: 1.65 m Weight: 64 kg Allergies Allergy/AdvReac Type Severity Reaction Status Date / Time No Known Allergies Allergy Verified 03/02/23 06:16 Home Medications Medication Instructions Recorded Confirmed Type quetiapine 100 mg tablet (Seroquel) 300 mg PO HS 10/13/19 03/02/23 History clonazepam 1 mg tablet 1 mg PO DAILY PRN Anxiety 12/19/19 03/02/23 History albuterol 90 mcg/actuation aerosol 90 mcg inhalation QID PRN 02/23/23 03/02/23 History inhaler Shortness Of Breath Or Wheezing cefdinir 300 mg capsule 300 mg PO Q12H #10 caps 02/26/23 03/02/23 Rx hydrocodone 5 mg-acetaminophen 325 1 tablet PO Q6H PRN pain #12 tabs 02/26/23 03/02/23 Rx mg tablet nicotine 21 mg/24 hr daily 1 patch transdermal QAM #30 ea 02/26/23 02/28/23 Rx transdermal patch (Nicoderm CQ) ondansetron 4 mg disintegrating 4 mg PO Q6H PRN nausea and 02/26/23 03/02/23 Rx tablet vomiting #14 tabs oxybutynin chloride 10 mg 10 mg PO DAILY #10 tabs 02/26/23 03/02/23 Rx tablet,extended release 24 hr Patient hx anesthesia problems: none Family hx anesthesia problems: none Results Review: All pre-operative results and documents have been reviewed as part of the pre-operative evaluation. 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 She smokes 0.5 to 1 packs of cigarettes a day for at least the last 10 years. She drinks 2 alcoholic drinks per month on average. 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 She lives at home with her 3 children. She is a full code. She nominates her mother to be the individual would make medical decisions for her if she is unable. Smoking packs per day: 1 Smoking cigarettes per day: 20.0 Years smoked: 13 Smoking pack-years: 13.00 Smoking status: Current every day smoker Tobacco type: cigarettes Second hand tobacco smoke exposure: Yes Alcohol intake: current Drinks per week: 1 Alcohol use details: 2/MONTH Substance use: current Substance use type: marijuana Last use: 2018 Lack of Transportation: No Lack of Food: Never True Current Housing: I Have Housing Concerned About Future Housing: No Difficulty Paying Gas/Electric Bills: No Difficulty Paying for Meds: No Currently Unemployed: No Education: High School Diploma/GED Difficulty w/ Childcare or Family Care: No Living arrangements: with family Additional living arrangements comments: CHILDREN Spiritual care concerns: No Anes - Eval Final PreProcedure Day of Procedure 03/02/23 06:35 Patient weight: normal Heart: regular rate and rhythm Lungs: decreased breath sounds Airway: Mallampati scale class II Neurological: alert and oriented Last oral intake: >/= 8 hours ASA classification: III Emergent: no Anesthetic plan: proceed Anesthesia typ
--- NOTE | 2023-03-02 06:38 | WPDHPUPDATE1 ---
History and Physical Update Update Date/Time: 03/02/23 06:38 History and Physical has been reviewed, including an updated exam of the patient. There are NO changes in the patient's condition. Risks, benefits, and alternatives have been discussed and questions answered. Patient agrees to proceed with procedure.
[2023-03-02] MEDS: LACTATED RINGERS 1,000 ML 30 ML IV CONT ×2 (06:44→08:36)
[2023-03-02] MEDS: ceFAZolin 2 GM/D5W 50 ML 2 GM/50 ML BAG IVPB (07:25)
[2023-03-02] MEDS: LIDOCAINE HCL 2% GEL UROJET 10 ML PKG MUCOUS MEM (07:52)
--- NOTE | 2023-03-02 08:04 | W.PM.PROC2 ---
Procedure Note - Detailed Date of Procedure 03/02/23 Pre-op Diagnosis Right ureteral stones Post-op Diagnosis Same Procedure Performed Cystoscopy, right ureteral stent removal, right ureteroscopy with laser lithotripsy, stone extraction and ureteral stent replacement Surgeon Ran West MD Anesthesia General Description of Procedure Patient is brought the operative suite was she has prepped draped in routine sterile fashion while in dorsal lithotomy position after the uneventful induction of a general LMA anesthetic. Cystoscopy is undertaken with a 21 F rigid cystoscope. There was no urethral strictures bladder neck is endoscopically normal. The bladder shows an indwelling right ureteral stent but is otherwise normal without mucosal hyperemia or foreign bodies. Tip of the stent is grasped in a 0.035 in wire was advanced through it into the renal pelvis. The distal ureter was dilated with an 8 F 10 F dilator. Right ureteroscopy was undertaken with a short tapered semi-rigid ureteral scope. One small stone this extracted intact with a 1.9 F 0 tip disposable stone basket. Two larger stones in the more right mid ureter were dusted with the Victor Manuel holmium laser ( 0.3 joules at 45 hertz). All stone fragments were extracted with the above-mentioned basket. A 4.8 F variable length stent is repositioned with the proximal coil in the renal pelvis and distal coil in the bladder. All scopes and wires removed she was taken recovery room in good condition Drains No Packing Yes Pathology Yes Complications No immediate complications
[2023-03-02] MEDS: fentaNYL CITRATE INJ (*CRX) 100 MCG/2 ML VIAL 25 MCG IV PUSH ×8 (08:20→08:51)
[2023-03-02] MEDS: HYOSCYAMINE SULFATE 0.125 MG TABLET PO (08:39)
[2023-03-02] MEDS: diazePAM INJ (*CRX) 10 MG/2 ML SYRINGE 5 MG IV PUSH (08:57)
[2023-03-02] MEDS: HYDROmorphone HCL INJ (*CRX) 1 MG/ML SYR 0.5 MG IV PUSH ×2 (09:05→09:10)
[2023-03-02] MEDS: oxyCODONE HCL (*CRX) 5 MG TAB IR PO (09:45)
== END 2023-03-02 10:17 | disposition home or self-care (01) ==
PROVIDERS: PCP Family Medicine; Visit Provider Urology
PROC: (CPT 52352; principal; 2023-03-02 07:30)
DX: N13.2 Hydronephrosis with renal and ureteral calculous obstruction (principal); F31.9 Bipolar disorder, unspecified; F41.9 Anxiety disorder, unspecified; J45.909 Unspecified asthma, uncomplicated; F17.210 Nicotine dependence, cigarettes, uncomplicated; F12.90 Cannabis use, unspecified, uncomplicated; Z79.51 Long term (current) use of inhaled steroids; Z79.891 Long term (current) use of opiate analgesic
CPT/HCPCS: 52356; 82365; 88300; A9270; C1769; C2617; J0690; J1100; J1170; J2250; J2405; J2704; J3010; J3360; J7120; Q9966

== ENCOUNTER 2023-04-12 13:41 | Outpatient (CLI) | payer OTHER, SELFPAY ==
[2023-04-12 13:58] LABS: Basophils Absolute Auto 0.02 K/mm3 (0.00-0.10); Basophils Percent Auto 0.4 % (0.0-1.0); Eosinophils Absolute Auto 0.11 K/mm3 (0.02-0.50); Eosinophils Percent Auto 2.4 % (1.0-6.0); Hematocrit 38.7 % (35.0-49.0); Hemoglobin 12.8 g/dL (12.0-15.0); Immature Granulocyte Absolute 0.01 K/mm3 (0.00-0.00); Immature Granulocyte Percent A 0.2 % (0.0-0.0); Lymphocytes Absolute Auto 1.61 K/mm3 (1.10-4.50); Lymphocytes Percent Auto 34.8 % (18.0-42.0); Mean Corpuscular HGB Conc 33.1 g/dL (32.0-36.0); Mean Corpuscular Hemoglobin 29.8 pg (27.0-31.0); Mean Platelet Volume 9.8 fl (9.2-11.8); Monocytes Absolute Auto 0.26 K/mm3 (0.10-0.90); Monocytes Percent Auto 5.6 % (2.0-11.0); Neutrophils Absolute Auto 2.6 K/mm3 (1.7-7.2); Neutrophils Percent Auto 56.6 % (50.0-70.0); Platelet Count Result 262 K/mm3 (150-420); Red Cell Distribution Width 13.2 % (11.6-14.4); White Blood Count 4.6 K/mm3 (4.8-10.8)
[2023-04-12 14:21] LABS: Alanine Aminotransferase 15 U/L (14-59); Albumin Level 3.9 g/dL (3.4-5.0); Alkaline Phosphatase 80 U/L (46-116); Anion Gap 9 mmol/L (8-16); Aspartate Amino Transferase 12 U/L (15-37); Bilirubin,Total 0.6 mg/dL (0.00-1.00); Blood Urea Nitrogen 14 mg/dL (7-18); Calcium 9.5 mg/dL (8.5-10.1); Carbon Dioxide 27 mmol/L (21-32); Chloride 104 mmol/L (98-108); Cholesterol 121 mg/dL (0-200); Estimated Glomerular Filt Rate > 60; Glucose 96 mg/dL (70-99); HDL Direct 42 mg/dL (40-60); LDL Cholesterol Calculated 68 mg/dL (<130); Osmolality Calculated 290 mOsm/kg (285-295); Potassium 4.2 mmol/L (3.5-5.1); Sodium 140 mmol/L (136-145); Total Protein 7.9 g/dL (6.4-8.2); Triglycerides 56 mg/dL (0-150)
== END 2023-04-12 13:42 | disposition home or self-care (01) ==
LOC: CHSLAB 13:45
PROVIDERS: PCP Family Medicine
DX: F31.32 Bipolar disorder, current episode depressed, moderate (principal); Z79.899 Other long term (current) drug therapy
CPT/HCPCS: 36415; 80053; 80061; 83036; 85025

== ENCOUNTER 2023-11-27 13:13 | Outpatient (CLI) | payer OTHER, SELFPAY ==
[2023-11-27 13:40] LABS: Basophils Absolute Auto 0.01 K/mm3 (0.00-0.10); Basophils Percent Auto 0.2 % (0.0-1.0); Eosinophils Percent Auto 3.7 % (1.0-6.0); Hematocrit 42.2 % (35.0-49.0); Lymphocytes Absolute Auto 2.39 K/mm3 (1.10-4.50); Mean Corpuscular HGB Conc 33.2 g/dL (32-36); Mean Corpuscular Hemoglobin 28.9 pg (27.0-31.0); Mean Corpuscular Volume 87.2 fL (78.0-102.0); Mean Platelet Volume 9.7 fl (9.2-11.8); Monocytes Percent Auto 7.4 % (2.0-11.0); Neutrophils Absolute Auto 2.43 K/mm3 (1.70-7.20); Neutrophils Percent Auto 44.7 % (50.0-70.0); Platelet Count Result 248 K/mm3 (150-420); Red Blood Count 4.84 M/mm3 (4.20-5.40); Red Cell Distribution Width 12.8 % (11.6-14.4); White Blood Count 5.4 K/mm3 (4.8-10.8)
[2023-11-27 14:07] LABS: Hemoglobin A1C 4.9 % (<5.7)
[2023-11-27 14:15] LABS: Alanine Aminotransferase 23 U/L (14-59); Albumin Level 4.3 g/dL (3.4-5.0); Alkaline Phosphatase 71 U/L (46-116); Anion Gap 11 mmol/L (4-12); Aspartate Amino Transferase 15 U/L (15-37); Bilirubin,Total 1.1 mg/dL (0.00-1.00); Blood Urea Nitrogen 11 mg/dL (7-18); Calcium 8.8 mg/dL (8.5-10.1); Carbon Dioxide 28 mmol/L (21-32); Chloride 104 mmol/L (98-108); Cholesterol 132 mg/dL (0-200); Estimated Glomerular Filt Rate > 60; Glucose 84 mg/dL (70-99); HDL Direct 51 mg/dL (40-60); LDL Cholesterol Calculated 72 mg/dL (<130); Osmolality Calculated 294 mOsm/kg (285-295); Sodium 143 mmol/L (136-145); Total Protein 7.7 g/dL (6.4-8.2); Triglycerides 45 mg/dL (0-150)
== END 2023-11-27 13:14 | disposition home or self-care (01) ==
LOC: CHSLAB 13:18
PROVIDERS: PCP Family Medicine
DX: F31.32 Bipolar disorder, current episode depressed, moderate (principal); Z79.899 Other long term (current) drug therapy
CPT/HCPCS: 36415; 80053; 80061; 83036; 85025

== ENCOUNTER 2024-10-09 09:34 | Outpatient (CLI) | payer OTHER, SELFPAY ==
[2024-10-09 09:50] LABS: Basophils Absolute Auto 0.02 K/mm3 (0.00-0.10); Basophils Percent Auto 0.4 % (0.0-1.0); Eosinophils Percent Auto 7.2 % (1.0-6.0); Hematocrit 42.5 % (35.0-49.0); Hemoglobin 13.6 g/dL (12.0-15.0); Immature Granulocyte Absolute 0.01 K/mm3 (0.00-0.00); Immature Granulocyte Percent A 0.2 % (0.0-0.0); Lymphocytes Absolute Auto 2.25 K/mm3 (1.10-4.50); Lymphocytes Percent Auto 40.6 % (18.0-42.0); Mean Corpuscular Hemoglobin 28.2 pg (27.0-31.0); Mean Corpuscular Volume 88.2 fL (78.0-102.0); Mean Platelet Volume 9.3 fl (9.2-11.8); Monocytes Percent Auto 7.2 % (2.0-11.0); Neutrophils Absolute Auto 2.46 K/mm3 (1.70-7.20); Neutrophils Percent Auto 44.4 % (50.0-70.0); Platelet Count Result 226 K/mm3 (150-420); Red Blood Count 4.82 M/mm3 (4.20-5.40); Red Cell Distribution Width 14.2 % (11.6-14.4); White Blood Count 5.5 K/mm3 (4.8-10.8)
--- OUTSIDE RECORDS SUMMARY | 2024-10-09 10:24 | XMS_ITS | Referral Summary ---
Author Organization [facility] [employer] Address [address] [place] [address] Care Team Providers Care Hose Inspector Name Role Phone Adams Ibarra MD Primary Care Provider [phone] Source Comments [facility] [employer],non-owned Affiliates and Associated Physician Practices is amultiple site organization consisting of ambulatory clinics and hospital sitesin [place], [place], [place] and [place]. This disclosure is being madepursuant to the Care Everywhere program and may not contain all information available regarding this patient. Last updated 18.[facility] [employer] Allergies No known active allergies Medications * Be aware that medications may not be up to date on this document. Alwaysverify current medications with the patient. Medication Sig Dispensed Refills Start Date End Date Status albuterol (PROVENTIL; VENTOLIN) 90 MCG/ACT inhaler Inhale 2 Puffs by mouth every 6 hours as needed. Active amitriptyline (ELAVIL) 10 MG tablet Take 10 mg by mouth at bedtime. Active hydrocodone-acetaminop hen (NORCO) 5-325 MG tablet Take 1-2 Tabs by mouth every 4 hours as needed for Pain. 100 Tab 0 01/10/2011 Active diazepam (VALIUM) 2 MG tablet Take 2 Tabs by mouth 3 times daily as needed. 100 Tab 0 01/10/2011 Active docusate sodium (COLACE) 50 MG capsule Take 1 Cap by mouth 2 times daily. 60 01/10/2011 Active Active Problems Problem Noted Date Diagnosed Date Acquired tibial torsion 01/05/2011 Femoral anteversion 11/05/2010 Social History Tobacco Use Types Packs/Day Years Used Date Smoking Tobacco: Every Day Cigarettes Sex and Gender Information Value Date Recorded Sex Assigned at Not on file Gender Identity Not on file Sexual Orientation Not on file Last Filed Vital Signs Vital Sign Reading Time Taken Comments Blood Pressure 115/68 01/10/2011 12:15 PM CDT Pulse 112 01/10/2011 12:15 PM CDT Temperature 37.7 C (99.8 F) 01/10/2011 12:15 PM CDT Respiratory Rate 20 01/10/2011 12:15 PM CDT Oxygen Saturation 98% 01/10/2011 12:15 PM CDT Inhaled Oxygen Concentration - - Weight 45 kg (99 lb 1.9 oz) 01/04/2011 7:10 AM C DT Height 153 cm (5' 0.24 ) 01/04/2011 7:10 AM CDT Body Mass Index 19.21 01/04/2011 7:10 AM CDT Plan of Treatment Not on file Care Teams Hose Inspector Relationship Specialty Start Date End Date Adams Ibarra MD [address] [place] [id number] PCP - General 05/09/11
--- OUTSIDE RECORDS SUMMARY | 2024-10-09 10:24 | XMS_ITS | Patient Health Summary ---
Author Organization [facility] Address [address] [place] [address] Care Team Providers Care Cylinder Loader Name Role Phone Adams Ibarra MD Primary Care Provider [phone] Note from [facility],non-owned Affiliates and Associated Physician Practices is amultiple site organization consisting of ambulatory clinics and hospital sitesin [place], [place], [place] and [place]. This disclosure is being madepursuant to the Care Everywhere program and may not contain all information available regarding this patient. Last updated 18.[facility] Allergies No known active allergies Medications * Be aware that medications may not be up to date on this document. Alwaysverify current medications with the patient. * albuterol (PROVENTIL; VENTOLIN) 90 MCG/ACT inhaler Inhale 2 Puffs by mouth every 6 hours as needed. * amitriptyline (ELAVIL) 10 MG tablet Take 10 mg by mouth at bedtime. * hydrocodone-acetaminophen (NORCO) 5-325 MG tablet(Started 01/10/2011) Take 1-2 Tabs by mouth every 4 hours as needed for Pain. * diazepam (VALIUM) 2 MG tablet(Started 01/10/2011) Take 2 Tabs by mouth 3 times daily as needed. * docusate sodium (COLACE) 50 MG capsule(Started 01/10/2011) Take 1 Cap by mouth 2 times daily. Active Problems Problem Noted Date Diagnosed Date [...] Mass Index 19.21 01/04/2011 7:10 AM CDT Procedures * XR FEMUR LEFT 2VW(Performed 05/09/2011) Performed for Femoral anteversion (HCC) * XR FEMUR RIGHT 2VW(Performed 05/09/2011) Performed for Femoral anteversion (HCC) * XR ANKLE LEFT 3VW OR MORE(Performed 05/09/2011) Performed for Femoral anteversion (HCC) * XR ANKLE RIGHT 3VW OR MORE(Performed 05/09/2011) Performed for Femoral anteversion (HCC) * XR FEMUR LEFT 2VW(Performed 03/07/2011) Performed for Femoral anteversion (HCC) * XR ANKLE RIGHT 3VW OR MORE(Performed 03/07/2011) Performed for Acquired tibial torsion * XR FEMUR RIGHT 2VW(Performed 03/07/2011) Performed for Femoral anteversion (HCC) * XR ANKLE LEFT 3VW OR MORE(Performed 03/07/2011) Performed for Acquired tibial torsion * XR FEMUR RIGHT 2VW(Performed 01/31/2011) Performed for Femoral anteversion (HCC) * XR FEMUR LEFT 2VW(Performed 01/31/2011) Performed for Femoral anteversion (HCC) * XR ANKLE RIGHT 3VW OR MORE(Performed 01/31/2011) Performed for Acquired tibial torsion * XR ANKLE LEFT 3VW OR MORE(Performed 01/31/2011) Performed for Acquired tibial torsion * HGB HCT PANEL(Performed 01/06/2011) * TRANSFUSE RED BLOOD CELLS(Performed 01/05/2011) * TYPE SCRN XMATCH RBC X1(Performed 01/05/2011) * BASIC METABOLIC PANEL (CALCIUM TOTAL)(Performed 01/05/2011) * HGB HCT PANEL(Performed 01/05/2011) * XR ANKLE LEFT 2VW(Performed 01/04/2011) Performed for Femoral anteversion (HCC) * XR ANKLE RIGHT 3VW OR MORE(Performed 01/04/2011) Performed for Femoral anteversion (HCC) * XR KNEE LEFT 2VW OR LESS(Performed 01/04/2011) Performed for Femoral anteversion (HCC) * XR KNEE RIGHT 2VW OR LESS(Performed 01/04/2011) Performed for Femoral anteversion (HCC) * HCG URINE QUALITATIVE - POINT OF CARE(Performed 01/04/2011) * URINALYSIS REFLEX TO MICROSCOPIC NO CULTURE(Performed 12/27/2010) Performed for Femoral anteversion (HCC) * TYPE + SCREEN PANEL(Performed 12/27/2010) Performed for Femoral anteversion (HCC) * PT-INR(Performed 12/27/2010) Performed for Femoral anteversion (HCC) * BASIC METABOLIC PANEL (CALCIUM TOTAL)(Performed 12/27/2010) Performed for Femoral anteversion (HCC) * CBC W AUTO DIFFERENTIAL(Performed 12/27/2010) Performed for Femoral anteversion (HCC) * XR LOWER EXTREMITY STANDING(Performed 12/27/2010) Performed for Femoral anteversion (HCC) * XR KNEE RIGHT 4VW OR MORE(Performed 11/05/2010) Performed for Knee pain Results * XR FEMUR 2 VW LEFT (05/09/2011 9:23 AM CDT) Only the most recent of3 resultswithin the time period is included. Anatomical Region Laterality Modality Lower Extremity Radiographic Nadine ging 05/09/2011 1:28 PM CDT Impressions 05/09/2011 3:26 PM CDT Healing bilateral distal femoral osteotomies. D: Ritesh Colon M.D. Narrative 05/09/2011 3:26 PM CDT Exam: Right and left femurs, AP and lateral views. 05/09/2011 Comparison: 01/31/2011 Findings: AP and lateral views of the right and left femurs were obtained. Distal femoral osteotomies are again noted with internal fixation with intramedullary rods. There is increased callus formation of the left and right distal femoral diaphyseal osteotomy sites consistent with healing. Alignment of both femurs is unchanged. The distal aspect of the left femur is not included on the frontal film. With this limitation in mind, there is no evidence of hardware failure. Procedure Note Shantell Ramirez MD - 05/09/2011 Exam: Right and left femurs, AP and lateral views. 05/09/2011 Comparison: 01/31/2011 Findings: AP and lateral views of the right and left femurs were obtained. Distal femoral osteotomies are again noted with internal fixation with intramedullary rods. There is increased callus formation of the left and right distal femoral diaphyseal osteotomy sites consistent with healing. Alignment of both femurs is unchanged. The distal aspect of the left femur is not included on the frontal film. With this limitation in mind, there is no evidence of hardware failure. IMPRESSION Healing bilateral distal femoral osteotomies. D: Ritesh Colon M.D. Leandro Arredondo MD DIAGNOSTIC IM AGING ORDERABLES * XR FEMUR 2 VW RIGHT (05/09/2011 9:22 AM CDT) Only the most recent of3 resultswithin the time period is included. Anatomical Region Laterality Modality Lower Extremity Radiographic Nadine ging 05/09/2011 1:28 PM CDT Impressions 05/09/2011 3:26 PM CDT Healing bilateral distal femoral osteotomies. D: Ritesh Colon M.D. Narrative 05/09/2011 3:26 PM CDT Exam: Right and left femurs, AP and lateral views. 05/09/2011 Comparison: 01/31/2011 Findings: AP and lateral views of the right and left femurs were obtained. Distal femoral osteotomies are again noted with internal fixation with intramedullary rods. There is increased callus formation of the left and right distal femoral diaphyseal osteotomy sites consistent with healing. Alignment of both femurs is unchanged. The distal aspect of the left femur is not included on the frontal film. With this limitation in mind, there is no evidence of hardware failure. Procedure Note Shantell Ramirez MD - 05/09/2011 Exam: Right and left femurs, AP and lateral views. 05/09/2011 Comparison: 01/31/2011 Findings: AP and lateral views of the right and left femurs were obtained. Distal femoral osteotomies are again noted with internal fixation with intramedullary rods. There is increased callus formation of the left and right distal femoral diaphyseal osteotomy sites consistent with healing. Alignment of both femurs is unchanged. The distal aspect of the left femur is not included on the frontal film. With this limitation in mind, there is no evidence of hardware failure. IMPRESSION Healing bilateral distal femoral osteotomies. D: Ritesh Colon M.D. Leandro Arredondo MD DIAGNOSTIC IM AGING ORDERABLES * XR ANKLE 3+ VW LEFT (05/09/2011 9:20 AM CDT) Only the most recent of3 resultswithin the time period is included. Anatomical Region Laterality Modality Lower Extremity Radiographic Nadine ging 05/09/2011 9:22 AM CDT Impressions 05/09/2011 9:22 AM CDT Healing distal left tibial osteotomy with intact hardware. Narrative 05/09/2011 9:22 AM CDT Three views of the left ankle performed May 09, 2011. History: Distal left tibial osteotomy. AP lateral and oblique views of the left ankle were obtained and are compared to prior study of March 07, 2011. A metallic side plate and multiple threaded screws traverse a healing distal left tibial osteotomy. The hardware is intact without radiographic evidence of loosening. Since the prior study there has been further healing and bony remodeling at the osteotomy site. No additional osseous or articular abnormalities are seen. Procedure Note Shantell Ramirez MD - 05/09/2011 Three views of the left ankle performed May 09, 2011. History: Distal left tibial osteotomy. AP lateral and oblique views of the left ankle were obtained and are compared to prior study of March 07, 2011. A metallic side plate and multiple threaded screws traverse a healing distal left tibial osteotomy. The hardware is intact without radiographic evidence of loosening. Since the prior study there has been further healing and bony remodeling at the osteotomy site. No additional osseous or articular abnormalities are seen. IMPRESSION Healing distal left tibial osteotomy with intact hardware. Leandro Arredondo MD DIAGNOSTIC IM AGING ORDERABLES * XR ANKLE 3+ VW RIGHT (05/09/2011 9:18 AM CDT) Only the most recent of4 resultswithin the time period is included. Anatomical Region Laterality Modality Lower Extremity Radiographic Nadine ging 05/09/2011 9:21 AM CDT Impressions 05/09/2011 9:21 AM CDT Healing distal right tibial osteotomy with intact hardware. Narrative 05/09/2011 9:21 AM CDT Three views of the right ankle performed May 09, 2011. History: Distal tibial osteotomy. AP lateral and oblique views of the right ankle were obtained and are compared to prior films of March 07, 2011. A metallic side plate and multiple threaded screws again traverse the distal right tibial osteotomy. The hardware appears intact without radiographic evidence of loosening. There has been further healing at the osteotomy site. Bony alignment at the osteotomy site is unchanged. No additional osseous or articular abnormalities are seen. Procedure Note Shantell Ramirez MD - 05/09/2011 Three views of the right ankle performed May 09, 2011. History: Distal tibial osteotomy. AP lateral and oblique views of the right ankle were obtained and are compared to prior films of March 07, 2011. A metallic side plate and multiple threaded screws again traverse the distal right tibial osteotomy. The hardware appears intact without radiographic evidence of loosening. There has been further healing at the osteotomy site. Bony alignment at the osteotomy site is unchanged. No additional osseous or articular abnormalities are seen. IMPRESSION Healing distal right tibial osteotomy with intact hardware. Leandro Arredondo MD DIAGNOSTIC IM AGING ORDERABLES * (ABNORMAL) HGB HCT PANEL (01/06/2011 5:00 AM CDT) Only the most recent of2 resultswithin the time period is included. Hemoglobin 9.8(DL) 12.0 - 16.0 gm/dl [facility] Hematocrit 28.8(DL) 36.0 - 47.0 % [facility] BLOOD SPECIMEN / Unknown 01/06/2011 5:00 AM CDT 01/06/2011 5:22 AM CDT Diallo Harding DO LAB - HEMATOLOGY ORD ERABLES [facility] [address] [place] [address] * TYPE SCRN XMATCH RBC X1 (01/05/2011 6:35 AM CDT) ABO Rh A POS [facility] Antibody Screen NEG Negative [facility] Products Ready 2 [facility] BLOOD SPECIMEN / Unknown 01/05/2011 6:35 AM CDT 01/05/2011 7:02 AM CDT Alicia Mcintosh MD LAB - BLOOD BANK ORD ERABLES Performing Organization Address [facility] Co de Phone Number [facility] [address] [place] [address] * (ABNORMAL) BASIC METABOLIC PANEL (CALCIUM TOTAL) (01/05/2011 4:50 AM CDT) Only the most recent of2 resultswithin the time period is included. Sodium 135(L) 137 - 145 mmol/L [facility] Potassium 4.1 3.5 - 5.1 mmol/L [facility] Chloride 105 98 - 107 mmol/L [facility] CO2 25.6 18 - 27 mmol/L [facility] Glucose 142(H) 70 - 106 mg/dl [facility] BUN 8.1 8 - 21 mg/dl [facility] Calcium 7.5(L) 8.9 - 10.7 mg/dl [facility] Creatinine 0.63 0.50 - 1.06 mg/dl [facility] BLOOD SPECIMEN / Unknown 01/05/2011 4:50 AM CDT 01/05/2011 5:01 AM CDT Diallo Harding DO LAB - CHEMISTRY ORDE CARLYLE Performing Organization Address [facility] Co de Phone Number [facility] [address] [place] [address] * XR ANKLE 2 VW LEFT (01/04/2011 5:00 PM CDT) Anatomical Region Laterality Modality Lower Extremity Radiographic Nadine ging 01/05/2011 7:56 AM CDT Impressions 01/05/2011 1:24 PM CDT Internally stabilized distal tibial osteotomy. D: Joy Stinson M.D. Narrative 01/05/2011 1:24 PM CDT Portable left ankle, 2 views 01/04/2001 at 1641 hours Two portable intraoperative images with limited [id number] demonstrate an internally stabilized distal tibial osteotomy. The fibula and remaining bones of the ankle appear intact. Postoperative subcutaneous emphysema is noted. Procedure Note Shantell Ramirez MD - 01/05/2011 Portable left ankle, 2 views 01/04/2001 at 1641 hours Two portable intraoperative images with limited [id number] demonstrate an internally stabilized distal tibial osteotomy. The fibula and remaining bones of the ankle appear intact. Postoperative subcutaneous emphysema is noted. IMPRESSION Internally stabilized distal tibial osteotomy. D: Joy Stinson M.D. Mike Doe MD DIAGNOSTIC IMAGING O RDERABLES * XR KNEE 1 OR 2 VW RIGHT (01/04/2011 5:00 PM CDT) Anatomical Region Laterality Modality Lower Extremity Radiographic Nadine ging 01/05/2011 8:01 AM CDT Impressions 01/05/2011 1:24 PM CDT Distal femoral intramedullary adry and screws. D: Joy Stinson M.D. Narrative 01/05/2011 1:24 PM CDT Portable right knee, 3 views the 01/04/2001 at 1522 hours Three portable intraoperative images with limited [id number] demonstrates an intramedullary adry and screws within the distal femur. The patella and proximal bones of the lower extremity are unremarkable. Subcutaneous emphysema is noted. Air is also noted within the knee joint. Procedure Note Shantell Ramirez MD - 01/05/2011 Portable right knee, 3 views the 01/04/2001 at 1522 hours Three portable intraoperative images with limited [id number] demonstrates an intramedullary adry and screws within the distal femur. The patella and proximal bones of the lower extremity are unremarkable. Subcutaneous emphysema is noted. Air is also noted within the knee joint. IMPRESSION Distal femoral intramedullary adry and screws. D: Joy Stinson M.D. Mike Doe MD DIAGNOSTIC IMAGING O RDERABLES * XR KNEE 1 OR 2 VW LEFT (01/04/2011 5:00 PM CDT) Anatomical Region Laterality Modality Lower Extremity Radiographic Nadine ging 01/05/2011 7:59 AM CDT Impressions 01/05/2011 1:24 PM CDT Distal femoral intramedullary adry and screws. D: Joy Stinson M.D. Narrative 01/05/2011 1:24 PM CDT Portable left knee, single lateral 01/04/2001 at 1533 hours A single portable intraoperative images with limited [id number] demonstrates an intramedullary adry and screws within the distal femur. The patella and proximal bones of the lower extremity are unremarkable. Subcutaneous emphysema is noted as is a small amount of air within the joint space. Procedure Note Shantell Ramirez MD - 01/05/2011 Portable left knee, single lateral 01/04/2001 at 1533 hours A single portable intraoperative images with limited [id number] demonstrates an intramedullary adry and screws within the distal femur. The patella and proximal bones of the lower extremity are unremarkable. Subcutaneous emphysema is noted as is a small amount of air within the joint space. IMPRESSION Distal femoral intramedullary adry and screws. D: Joy Stinson M.D. Mike Doe MD DIAGNOSTIC IMAGING O RDERABLES * HCG URINE QUALITATIVE - POINT OF CARE (01/04/2011 8:41 AM CDT) HCG Qual Urine Negative Negative [facility] QC Verified Yes Yes [facility] Urine specimen (specimen) URINE / Unknown 01/04/2011 8:41 AM CDT Mike Doe MD LAB - POINT OF CARE ORDERABLES [facility] [address] [place] [address] * URINALYSIS ROUTINE AUTO (12/27/2010 11:40 AM CDT) Color UA YELLOW [facility] Character UA CLEAR [facility] Specific Points UA 1.025 1.003 - 1.030 [facility] pH UA 6.0 5.0 - 8.0 [facility] Protein UA NEGATIVE Negative [facility] Glucose UA NEGATIVE Negative gm/dl [facility] Ketone UA NEGATIVE Negative [facility] Blood UA NEGATIVE Negative [facility] Bilirubin UA NEGATIVE Negative [facility] WBC UA 7-10 /HPF [facility] Epithelial Cell UA 5-9 /HPF [facility] Crystals UA 5-10 Calcium Oxalate, Small Amorphous [facility] Mucus UA small [facility] Bacteria UA moderate [facility] Leukocyte UA NEGATIVE [facility] Nitrite UA NEGATIVE [facility] Urobilinogen UA 0.2 <=1.0 EU/dl [facility] URINE SPECIMEN OBTAINED BY CLEAN CATCH PROCEDURE / Unknown 12/27/2010 11:40 AM CDT 12/27/2010 12:20 PM CDT Alicia Mcintosh MD LAB - URINALYSIS ORD ERABLES Performing Organization Address [facility] Co de Phone Number [facility] [address] [place] [address] * TYPE + SCREEN PANEL (12/27/2010 11:25 AM CDT) ABO Rh A POS [facility] Antibody Screen NEG Negative [facility] BLOOD SPECIMEN / Unknown 12/27/2010 11:25 AM CDT 12/27/2010 11:45 AM CDT Alicia Mcintosh MD LAB - BLOOD BANK ORD ERABLES Performing Organization Address [facility] de Phone Number [facility] [address] [place] [phone] * PT-INR (12/27/2010 11:25 AM CDT) PT 14.2 12.2-14.5 seconds seconds [facility] INR 1.1 0.8 - 1.2 [facility] BLOOD SPECIMEN / Unknown 12/27/2010 11:25 AM CDT 12/27/2010 11:45 AM CDT Alicia Mcintosh MD LAB - COAGULATION OR DERABLES Performing Organization Address [facility] Co de Phone Number [facility] [address] [place] [phone] * CBC W AUTO DIFFERENTIAL (12/27/2010 11:25 AM CDT) WBC 5.27 4.5 - 14.5 K/cumm [facility] RBC 4.39 4.10 - 5.10 mill/cumm [facility] Hemoglobin 12.3 12.0 - 16.0 gm/dl [facility] Hematocrit 36.6 36.0 - 47.0 % [facility] MCV 83.4 78.0 - 102.0 cu microns [facility] MCH 28.0 25.0 - 35.0 uug [facility] MCHC 33.6 31.0 - 37.0 % [facility] RDW 13.9 % [facility] MPV 10.7 fl [facility] Platelet Count 245 100 - 400 K/cumm [facility] Granulocytes % 48.9 24 - 66 % [facility] Lymphocytes % 41.4 22 - 61 % [facility] Monocytes % 7.4 3 - 15 % [facility] Eosinophils % 1.7 0 - 10 % [facility] Basophils % 0.6 0 - 1 % [facility] Comment Manual Diff Automated Diff Performed [facility] BLOOD SPECIMEN / Unknown 12/27/2010 11:25 AM CDT 12/27/2010 11:45 AM CDT Alicia Mcintosh MD LAB - HEMATOLOGY ORD ERABLES Performing Organization Address City/State/[facility] Co de Phone Number [facility] [address] [phone] * XR LOWER EXTREM JNTS STANDING (12/27/2010 10:28 AM CDT) Anatomical Region Laterality Modality Radiographic Nadine ging 12/27/2010 11:3 6 AM CDT Impressions 12/27/2010 11:36 AM CDT Leg length discrepancy with the right lower extremity measuring 5 mm longer than the left. There is an accompanying mild pelvic tilt. Narrative 12/27/2010 11:36 AM CDT Standing frontal views of both lower extremities performed 12/27/2010. History: Pelvic tilt. A standing frontal view both lower extremity is was performed. The right iliac crest is higher than the left. The right femur measures approximately 47.4 cm in length. The distal right lower extremity measures 37.6 cm in length. The right lower extremity therefore measures 85.0 cm in length. The left femur measures 47.1 cm in length. The left distal lower extremity measures 37.4 cm in length. The left lower extremity therefore measures 84.5 cm in length. The bony mineralization appears appropriate. There is no evidence of fracture. The femoral heads are intact. Procedure Note Shantell Ramirez MD - 12/27/2010 Standing frontal views of both lower extremities performed 12/27/2010. History: Pelvic tilt. A standing frontal view both lower extremity is was performed. The right iliac crest is higher than the left. The right femur measures approximately 47.4 cm in length. The distal right lower extremity measures 37.6 cm in length. The right lower extremity therefore measures 85.0 cm in length. The left femur measures 47.1 cm in length. The left distal lower extremity measures 37.4 cm in length. The left lower extremity therefore measures 84.5 cm in length. The bony mineralization appears appropriate. There is no evidence of fracture. The femoral heads are intact. IMPRESSION Leg length discrepancy with the right lower extremity measuring 5 mm longer than the left. There is an accompanying mild pelvic tilt. Alicia Mcintosh MD DIAGNOSTIC IMAGING O RDERABLES * XR KNEE 4+ VW RIGHT (11/05/2010 10:44 AM CDT) Anatomical Region Laterality Modality Lower Extremity Radiographic Nadine ging 11/05/2010 12:3 4 PM CDT Impressions 11/05/2010 12:34 PM CDT No abnormality is seen. Narrative 11/05/2010 12:34 PM CDT Four views of the right knee performed November 05, 2010. History: Knee pain. AP, lateral, sunrise, and tunnel views of the right knee were obtained. No prior films are available for comparison. No osseous, articular, or soft tissue abnormality is seen. Procedure Note Shantell Ramirez MD - 11/05/2010 Four views of the right knee performed November 05, 2010. History: Knee pain. AP, lateral, sunrise, and tunnel views of the right knee were obtained. No prior films are available for comparison. No osseous, articular, or soft tissue abnormality is seen. IMPRESSION No abnormality is seen. Swapnil Claros MD DIAGNOSTIC IMAGING O RDERABLES Care Teams Cylinder Loader Relationship Specialty Start Date End Date Adams Ibarra MD [address] [place] [address] [place] [address] PCP - General 05/09/11
--- OUTSIDE RECORDS SUMMARY | 2024-10-09 10:24 | XMS_ITS | Clinical Summary ---
Author Organization [facility] Address [address] [place] [address] Care Team Providers Care Butcher Head Name Role Phone No, Physician Primary Care Provider [phone] Allergies No known active allergies Medications QUEtiapine (SEROquel) 300 mg tabletIndications :Depression associated with Bipolar Disorder Take 300 mg by mouth nightly Active buPROPion XL (WELLBUTRIN XL) 300 mg 24 hr tabletIndications :major depressive disorder Take 300 mg by mouth every morning Active clonazePAM (KlonoPIN) 1 mg tabletIndications :anxiety Take 1 mg by mouth as needed for anxiety 1 Active dextroamphetamine -amphetamine XR (ADDERALL XR) 10 mg 24 hr capsuleIndication s:Attention-Defic it Hyperactivity Disorder Take 10 mg by mouth every morning Active albuterol HFA (PROVENTIL HFA,VENTOLIN HFA,PROAIR HFA) 90 mcg/actuation inhalerIndication s:Acute Asthma Attack Inhale 2 puffs every 4 (four) hours as needed for wheezing Active etonogestreL (NEXPLANON) 68 mg implantIndication s: Contraception 1 each by Not Applicable route once Active acetaminophen (TYLENOL) 500 mg tablet Take 1,000 mg by mouth every 6 (six) hours as needed for pain or headaches Active oxybutynin (DITROPAN) 5 mg tablet Take 1 tablet (5 mg total) by mouth 3 (three) times a day as needed (stent pain) for up to 5 days 15 tablet 1 Active tamsulosin (FLOMAX) 0.4 mg extended release capsule Take 1 capsule (0.4 mg total) by mouth daily for 7 days 7 capsule Active Active Problems Problem Noted Date Diagnosed Date Staghorn calculus 02/14/2021 Overview (02/14/2021): Added automatically from request for surgery [id number] Donor of stem cell 06/08/2018 Surgical History Surgery Date Site/Laterality Comments OSTEOTOMY PROXIMAL FEMORAL 08/07/2010 - 08/06/2011 Bilateral due to bilateral leg bowing KNEE ARTHROSCOPY 08/07/2018 - 08/06/2019 Right HARDWARE REMOVAL URETEROSCOPY 08/07/2004 - 08/06/2005 LITHOTRIPSY 04/07/2021 - 05/06/2021 URETERAL STENT PLACEMENT 01/05/2021 - 02/03/2021 Medical History Medical History Date Comments Asthma Hematuria Urinary incontinence Kidney stone Back pain Anxiety Depression Family History Medical History Relation Name Comments Diabetes Father Breast cancer Mother Nephrolithiasis Mother Anesthesia problems Neg Hx Relation Name Status Comments Father Mother Social History Tobacco Use Types Packs/Day Years Used Date Smoking Tobacco: Every Day Cigarettes 0.5 12 Smokeless Tobacco: Never Social Connection and Isolation Panel [NHANES] A nswer Date Recorded In a typical week, how many times do you talk on the phone with family, friends, or neighbors? Three times a week 04/27/20 How often do you get togethe r with friends or relatives? Twice a week 04/27/2021 How often do you attend chur ch or adventist services? Never 04/27/2021 Do you belong to any clubs o r organizations such as confucianist groups, unions, fraternal or athletic groups, or school groups? No 04/27/2021 How often do you attend meet ings of the clubs or organizations you belong to? Never 04/27/2021 Are you , , di vorced, , never , or living with a partner? Living with partner 04/27/2021 AUDIT-C Answer Date Recorded Q1: How often do you have a drink containing alc ohol? Never 05/19/2021 Q2: How many drinks containi ng alcohol do you have on a typical day when you are drinking? 1 or 2 05/19/2021 Q3: How often do you have six or more drinks on one occasion? Never 05/19/2021 Overall Financial Resource Strain (CARDIA) Answe r Date Recorded How hard is it for you to pa y for the very basics like food, housing, medical care, and heating? Not very hard 04/27/2021 Hunger Vital Sign Answer Date Recorded Within the past 12 months, y ou worried that your food would run out before you got the money to buy more. Sometimes true Within the past 12 months, t he food you bought just didn't last and you didn't have money to get more. Sometimes true PRAPARE - Transportation Answer Date Re corded In the past 12 months, has l ack of transportation kept you from medical appointments or from getting medications? No 04/08 In the past 12 months, has l ack of transportation kept you from meetings, work, or from getting things needed for daily living? 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 Gender Identity Not on file Sexual Orientation Not on file Obstetrics History Last Filed Vital Signs Vital Sign Reading Time Taken Comments Blood Pressure 123/76 06/02/2021 10:06 AM CDT Pulse 96 06/02/2021 10:06 AM CDT Temperature 36.3 C (97.4 F) 06/02/2021 10:06 AM CDT Respiratory Rate 15 05/19/2021 12:0 0 PM CDT Oxygen Saturation 100% 05/19/2021 12: 00 PM CDT Inhaled Oxygen Concentration - - Weight 61.2 kg (134 lb 14.7 oz) 021 10:06 AM CDT Height 165.1 cm (5' 5 ) 06/02/2021 10:0 6 AM CDT Body Mass Index 22.45 06/02/2021 10:06 AM CDT Plan of Treatment Not on file Medical Devices Explanted Type Area Ultimate Hoops Referee Device Identifier Shelf Expiration Date Model / Serial / Lot Sne[employer] Inc [id number] 6fr 24cm 145cm Radiopaque Positioner Filiform Flexible Tip - [id number] Implanted:Qty: 1 on 04/26/2021 by Leonela Cruz MD at [facility] Explanted:Qty: 1 on 05/19/2021 by Leonela Cruz MD at [facility] Stent Right: Ureter [employer] [id number] 01/13/2024 [id number] / / [id number] [facility] [id number] Inlay [place] 6fr 24cm Pusher Fluoro Marker Atraumatic Insertion Latex Free - Sn/A - [id number] Implanted:Qty: 1 on 05/19/2021 by Leonela Cruz MD at [facility] Explanted:Qty: 1 on 06/02/2021 by Rosalie Cheung NP Stent Right: Ureter [employer] [facility] [id number] 12/01/2025 [id number] / N/A / [id number] Insurance [employer] [facility] Advance Directives For more information, please contact: [phone] * Full Code (Latest Code Status on File) Date Activated Date Inactivated Comments 04/26/2021 5:19 PM 04/28/2021 3:49 PM Care Teams Butcher Head Relationship Specialty Start Date End Date No, Physician PCP - General 01/20/21
--- OUTSIDE RECORDS SUMMARY | 2024-10-09 10:24 | XMS_ITS | Referral Summary ---
Author Organization [facility] Address [address] [place] [address] Care Team Providers Care Bonsai Tender Name Role Phone No, Physician Primary Care Provider [phone] Allergies No known active allergies Medications QUEtiapine [...] Active Problems Problem Noted Date Diagnosed Date Natalee calculus 02/14/2021 Overview (02/14/2021): Added automatically from request for surgery [id number] Donor of stem cell 06/08/2018 Social History Tobacco Use Types Packs/Day Years [...] often do you attend chur ch or buddhist services? 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 TRANSPLANT Gender Identity Not on file Sexual Orientation [...] on file Medical Devices Explanted Type Area Metal And Plastic Heater Device Identifier Shelf Expiration Date Model / Serial / Lot [employer] [id number] 6fr 24cm 145cm Radiopaque Positioner Filiform Flexible Tip - [id number] Implanted:Qty: 1 on 04/26/2021 by Leonela Cruz MD at [facility] Explanted:Qty: 1 on 05/19/2021 by Leonela Cruz MD at [facility] Stent Right: Ureter [employer] [id number] 01/13/2024 [id number] / / [id number] [facility] [id number] Inlay [place] 6fr 24cm Pusher Fluoro Marker Atraumatic Insertion Latex Free - Sn/A - [id number] Implanted:Qty: 1 on 05/19/2021 by Leonela Cruz MD at [facility] Explanted:Qty: 1 on 06/02/2021 by Skye, Rosalie Betty, PARADI TENDER Stent Right: Ureter [employer] [facility] [id number] 12/01/2025 [id number] / N/A / [id number] Insurance [facility] IDFL [facility] Advance Directives For more information, please contact: [phone] * Full Code (Latest Code Status on File) Date Activated Date Inactivated Comments 04/26/2021 5:19 PM 04/28/2021 3:49 PM Care Teams Bonsai Tender Relationship Specialty Start Date End Date No, Physician PCP - General 01/20/21
--- OUTSIDE RECORDS SUMMARY | 2024-10-09 10:24 | XMS_ITS | Clinical Summary ---
Author Organization [facility] Address [address] [place] [address] Care Team Providers Care Detective Chief Name Role Phone Adams Ibarra MD Primary Care Provider [phone] Source Comments [facility],non-owned Affiliates and Associated Physician Practices is amultiple site organization consisting of ambulatory clinics and hospital sitesin [place], [place] and [place]. This disclosure is being madepursuant to the Care Everywhere program and may not contain all information available regarding this patient. Last updated 18.[facility] Allergies No known active allergies Medications * [...] 01/04/2011 7:10 AM CDT Plan of Treatment Health Maintenance Due Date Last Done Comments PAP SMEAR 1994 HIV SCREENING 2009 HEPATITIS C SCREENING 04/03/2012 DTAP/TDAP/TD VACCINES (1 - Tdap) 2013 HEPATITIS B VACCINE (1 of 3 - 19+ 3-dose series) 2013 PNEUMOCOCCAL VACCINE (1 of 2 - PCV) 2013 COVID-19 VACCINE ( - 2023-2 5 season) 2024 INFLUENZA VACCINE (#1) 2024 DEPRESSION SCREENING 08/07/2024 ZOSTER VACCINE (1 of 2) 2044 HIB VACCINE Aged Out No longer eligi ble based on patient's age to complete this topic HPV VACCINE Aged Out No longer eligi ble based on patient's age to complete this topic MENINGOCOCCAL (Group B) VACCINE Aged Out No longer eligible based on patient's age to complete this topic MENINGOCOCCAL VACCINE Aged Out No saira marcelina eligible based on patient's age to complete this topic Care Teams Detective Chief Relationship Specialty Start Date End Date Adams Ibarra MD [address] [place] [place] [id number] PCP - General 05/09/11
[2024-10-09 23:46] LABS: Alanine Aminotransferase 28 U/L (14-59); Albumin Level 4.5 g/dL (3.4-5.0); Alkaline Phosphatase 97 U/L (46-116); Anion Gap 12 mmol/L (4-12); Aspartate Amino Transferase 26 U/L (15-37); Bilirubin,Total 0.3 mg/dL (0.00-1.00); Blood Urea Nitrogen 12 mg/dL (7-18); Calcium 8.9 mg/dL (8.5-10.1); Carbon Dioxide 25 mmol/L (21-32); Chloride 105 mmol/L (98-108); Cholesterol 153 mg/dL (0-200); Estimated Glomerular Filt Rate > 60; Glucose 121 mg/dL (70-99); HDL Direct 58 mg/dL (40-60); LDL Cholesterol Calculated 80 mg/dL (<130); Osmolality Calculated 294 mOsm/kg (285-295); Sodium 142 mmol/L (136-145); Total Protein 8.1 g/dL (6.4-8.2); Triglycerides 73 mg/dL (0-150)
[2024-10-09 23:50] LABS: Hemoglobin A1C 5.1 % (<5.7)
== END 2024-10-09 09:35 | disposition home or self-care (01) ==
PROVIDERS: PCP Family Medicine
DX: F31.32 Bipolar disorder, current episode depressed, moderate (principal); Z79.899 Other long term (current) drug therapy
CPT/HCPCS: 36415; 80053; 80061; 83036; 85025

== ENCOUNTER 2025-03-27 10:35 | Outpatient (CLI) | payer OTHER, SELFPAY ==
--- NOTE | ~2025-03-27 | CT_ITS ---
EXAMINATION: CT abdomen pelvis wo con DATE: 03/27/2025 10:56 INDICATION: Calculus of kidney. TECHNIQUE: Computed tomography (CT) of the abdomen and pelvis was performed without intravenous contrast. The dose-length product was 201.37 mGy-cm. COMPARISON: 02/23/2023 and 10/27/2022 FINDINGS: Small opacities in the lower lungs. Bilateral nonobstructing renal stones, largest measures 1.2 cm in the inferior pole of the right kidney. No hydronephrosis. Liver, spleen, adrenal glands, pancreas are unremarkable. Abdominal aorta is not aneurysmal. No enlarged lymph nodes in the abdomen or pelvis. Anastomotic suture line in large bowel in the right hemipelvis. No bladder calculi. No dilated bowel loops. Moderate amount of stool. Hardware in the femurs with surrounding artifact which limits evaluation. IMPRESSION: 1. Bilateral nonobstructing renal stones. 2. No ureteral or bladder calculi. No hydronephrosis. 3. No CT evidence for an acute process in the abdomen or pelvis at this time. Reviewed, dictated and finalized at location A.
[2025-03-27 10:48] LABS: Hematocrit 40.6 % (35.0-49.0); Hemoglobin 13.2 g/dL (12.0-15.0); Immature Granulocyte Percent A 0.3 % (0.0-0.0); Lymphocytes Absolute Auto 1.93 K/mm3 (1.10-4.50); Mean Corpuscular HGB Conc 32.5 g/dL (32-36); Mean Corpuscular Hemoglobin 28.1 pg (27.0-31.0); Mean Corpuscular Volume 86.4 fL (78.0-102.0); Nucleated Red Blood Cells Absolute Auto 0.00 K/mm3 (0.00-0.00); Nucleated Red Blood Cells Perc 0.0 % (0-0.0); Platelet Count Result 288 K/mm3 (150-420); Red Blood Count 4.70 M/mm3 (4.20-5.40); White Blood Count 6.8 K/mm3 (4.8-10.8)
[2025-03-27 11:10] LABS: Alanine Aminotransferase 17 U/L (6-35); Albumin Level 5.0 g/dL (3.5-5.1); Alkaline Phosphatase 76 U/L (38-126); Anion Gap 12 mmol/L (4-12); Aspartate Amino Transferase 20 U/L (14-36); Bilirubin,Total 0.5 mg/dL (0.2-1.3); Blood Urea Nitrogen 14 mg/dL (7-17); Calcium 10.5 mg/dL (8.4-10.2); Carbon Dioxide 25 mmol/L (22-30); Chloride 106 mmol/L (98-107); Cholesterol 152 mg/dL (0-200); Estimated Glomerular Filt Rate > 60; Glucose 109 mg/dL (65-110); HDL Direct 54 mg/dL; Osmolality Calculated 297 mOsm/kg (285-295); Potassium 4.3 mmol/L (3.4-5.0); Sodium 143 mmol/L (137-145); Total Protein 8.3 g/dL (6.3-8.2); Triglycerides 112 mg/dL (<150)
--- OUTSIDE RECORDS SUMMARY | 2025-03-27 11:13 | XMS_ITS | Clinical Summary ---
Author Organization [facility] [employer] Address [address] [place] [address] Care Team Providers Care Local Delivery Truck Driver Name Role Phone Adams Ibarra MD Primary Care Provider [phone] Source Comments [facility] [employer]non-owned Affiliates and Associated Physician Practices is amultiple site organization consisting of ambulatory clinics and hospital sitesin [place], [place], [place] and [place]. This disclosure is being madepursuant to the Care Everywhere program and may not contain all information available regarding this patient. Last updated 18.[facility] [employer] Allergies No known active allergies Medications * Be aware that medications may not be up to date on this document. Alwaysverify current medications with the patient. albuterol (PROVENTIL; VENTOLIN) 90 MCG/ACT inhaler Inhale 2 Puffs by mouth every 6 hours as needed. Active amitriptyline (ELAVIL) 10 MG tablet Take 10 mg by mouth at bedtime. Active hydrocodone-acet aminophen (NORCO) 5-325 MG tablet Take 1-2 Tabs [...] Used Date Smoking Tobacco: Every Day Cigarettes Comments No Sex and Gender Information Value Date Recorded Sex Assigned at Not on file Legal Sex Female 5:41 AM DIRECTOR OF PROVIDER RELATIONS Gender Identity Not on file Sexual Orientation [...] AM C DT Height 153 cm (5' 0.24) 01/04/2011 7:10 AM CDT Body Mass Index 19.21 01/04/2011 7:10 AM CDT Plan of Treatment Health Maintenance Due Date Last Done Comments HIV SCREENING 2009 HEPATITIS C SCREENING 04/03/2012 DTAP/TDAP/TD VACCINES (1 - Tdap) 2013 HEPATITIS B VACCINE (1 of 3 - 19+ 3-dose series) 2013 PNEUMOCOCCAL VACCINE (1 of 2 - PCV) 2013 PAP SMEAR 2015 HPV VACCINE (1 - 3-dose SCDM series) 2021 COVID-19 VACCINE (1 - 2023-2 5 season) 2024 DEPRESSION SCREENING 08/07/2024 INFLUENZA VACCINE (#1) 2025 ZOSTER VACCINE (1 of 2) 2044 HIB VACCINE Aged Out No longer eligi ble based on patient's age to complete this topic MENINGOCOCCAL (Group B) VACC INE SHARED DECISION-MAKING Aged Out No longer eligibl e based on patient's age to complete this topic MENINGOCOCCAL GROUPS A/C/Y/W VACCINE Aged Out No longer eligible b ased on patient's age to complete this topic Insurance [facility] Care Teams Local Delivery Truck Driver Relationship Specialty Start Date End Date Adams Ibarra MD [facility] [place] [address] PCP - General 05/09/11
--- OUTSIDE RECORDS SUMMARY | 2025-03-27 11:14 | XMS_ITS | Clinical Summary ---
Author Organization [facility] Address [address] [place] [address] Care Team Providers Care Supervisor Sewing Department Name Role Phone No, Physician Primary Care Provider [phone] Allergies No known active allergies Medications QUEtiapine [...] (02/14/2021): Added automatically from request for surgery [id number] Donor of stem cell 06/08/2018 Surgical History [...] Tobacco: Never Social Connection and Isolation Panel Answer Date Recorded In a typical week, how many times do you talk on the phone with family, friends, or neighbors? Three times a week 04/27/20 How often do you get togethe r with friends or relatives? Twice a week 04/27/2021 How often do you attend chur or bahai services? 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 Gender Identity Not on file Sexual Orientation [...] 10:06 AM CDT Height 165.1 cm (5' 5) 06/02/2021 10:0 6 AM CDT Body Mass Index 22.45 06/02/2021 10:06 AM CDT Plan of Treatment Not on file Medical Devices Explanted Type Area Pattern Changer And Repairer Device Identifier Shelf Expiration Date Model / Serial / Lot [employer] [id number] 6fr 24cm 145cm Radiopaque Positioner Filiform Flexible Tip - [id number] Implanted:Qty: 1 on 04/26/2021 by Leonela Cruz MD at [facility] Explanted:Qty: 1 on 05/19/2021 by Leonela Cruz MD at [facility] Stent Right: Ureter [employer] [id number] 01/13/2024 [id number] / / [id number] [facility] 117707 Inlay [place] 6fr 24cm Pusher Fluoro Marker Atraumatic Insertion Latex Free - Sn/A - [id number] Implanted:Qty: 1 on 05/19/2021 by Leonela Cruz MD at [facility] Explanted:Qty: 1 on 06/02/2021 by Rosalie Cheung NP Stent Right: Ureter [employer] [id number] 12/01/2025 [id number] / N/A / [id number] Insurance [facility] [place] Advance Directives For more information, please contact: [phone] * Full Code (Latest Code Status on File) Date Activated Date Inactivated Comments 04/26/2021 5:19 PM 04/28/2021 3:49 PM Care Teams Supervisor Sewing Department Relationship Specialty Start Date End Date No, Physician PCP - General 01/20/21
[2025-03-27 11:45] LABS: Ferritin 8.65 ng/mL (6.24-137)
[2025-03-27 12:16] LABS: Vitamin B12 545.0 pg/mL (239-931)
[2025-03-27 13:23] LABS: Thyroid Stimulating Hormone Reflex 1.040 uIU/mL (0.465-4.68)
== END 2025-03-27 10:36 | disposition home or self-care (01) ==
LOC: CHSLAB 10:36
PROVIDERS: PCP Family Medicine; Visit Provider Family Medicine
DX: N39.0 Urinary tract infection, site not specified (principal); E53.8 Deficiency of other specified B group vitamins; G62.9 Polyneuropathy, unspecified; E03.9 Hypothyroidism, unspecified; F41.9 Anxiety disorder, unspecified; D50.9 Iron deficiency anemia, unspecified; N20.2 Calculus of kidney with calculus of ureter
CPT/HCPCS: 36415; 74176; 80053; 80061; 82607; 82728; 82746; 84443; 85025

== ENCOUNTER 2025-04-22 12:05 | Outpatient (CLI) | payer OTHER, SELFPAY ==
--- NOTE | ~2025-04-22 | CT_ITS ---
EXAMINATION: CT abdomen pelvis wo con DATE: 04/22/2025 12:29 INDICATION: Calculus of kidney with calculus of ureter. TECHNIQUE: Computed tomography (CT) of the abdomen and pelvis was performed without intravenous contrast. Automated exposure control and iterative reconstruction technique were employed. The dose-length product was 241.45 mGy-cm. COMPARISON: CT abdomen and pelvis 03/27/2025 FINDINGS: The portions of the lung bases demonstrate mild atelectasis. No pleural effusion. The heart size is normal. No pericardial effusion. The liver, gallbladder, spleen, pancreas, and adrenal glands are normal. There are approximately 7 stones in right kidney measuring up to 11 mm. There is a 2 mm stone in left kidney. The ureters are normal. There are no dilated loops of bowel. There are changes of appendectomy. There are no pathologically enlarged lymph nodes. There is no free intraperitoneal fluid. There is internal fixation of the femora. IMPRESSION: 1. Bilateral nonobstructing kidney stones. Reviewed, dictated and finalized at location E.
[2025-04-22 12:18] LABS: Hematocrit 42.2 % (35.0-49.0); Hemoglobin 13.8 g/dL (12.0-15.0); Immature Granulocyte Percent A 0.4 % (0.0-0.0); Lymphocytes Absolute Auto 1.73 K/mm3 (1.10-4.50); Mean Corpuscular HGB Conc 32.7 g/dL (32-36); Mean Corpuscular Hemoglobin 28.3 pg (27.0-31.0); Mean Corpuscular Volume 86.7 fL (78.0-102.0); Nucleated Red Blood Cells Absolute Auto 0.00 K/mm3 (0.00-0.00); Nucleated Red Blood Cells Perc 0.0 % (0-0.0); Platelet Count Result 300 K/mm3 (150-420); Red Blood Count 4.87 M/mm3 (4.20-5.40); White Blood Count 7.9 K/mm3 (4.8-10.8)
[2025-04-22 13:05] LABS: Alanine Aminotransferase 12 U/L (6-35); Albumin Level 5.0 g/dL (3.5-5.1); Alkaline Phosphatase 71 U/L (38-126); Anion Gap 14 mmol/L (4-12); Aspartate Amino Transferase 18 U/L (14-36); Bilirubin,Total 0.6 mg/dL (0.2-1.3); Blood Urea Nitrogen 15 mg/dL (7-17); Calcium 9.8 mg/dL (8.4-10.2); Carbon Dioxide 23 mmol/L (22-30); Chloride 105 mmol/L (98-107); Estimated Glomerular Filt Rate > 60; Glucose 103 mg/dL (65-110); Osmolality Calculated 294 mOsm/kg (285-295); Potassium 4.5 mmol/L (3.4-5.0); Sodium 142 mmol/L (137-145); Total Protein 9.7 g/dL (6.3-8.2)
--- OUTSIDE RECORDS SUMMARY | 2025-04-22 13:57 | XMS_ITS | Clinical Summary ---
Author Organization [facility] Address [address] [place] [address] Care Team Providers Care Mushroom Farmer Name Role Phone Erich Kendall Primary Care Provider Allergies No known active allergies Medications QUEtiapine [...] mouth daily for 7 days 7 capsule 1 Active Active Problems Problem Noted Date Diagnosed Date Staghorn calculus 02/14/2021 Overview (02/14/2021): Added automatically from request for surgery [id number] Donor of stem cell 06/08/2018 Surgical History [...] or neighbors? Three times a week 04/27/20 21 How often do you get togethe r with friends or relatives? Twice a week 04/27/2021 How often do you attend chur ch or confucianist services? 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 Gender Identity Not on file Sexual Orientation [...] 06/02/2021 10:06 AM CDT Plan of Treatment Health Maintenance Due Date Last Done Comments Cervical Cancer Screening 1994 Depression Screening 1994 Hepatitis C Screening 1994 Varicella Vaccines (1 of 2 - 13+ 2-dose series) 2007 Regular Well Visit/Exam 18-64 2012 Pneumococcal vaccine <65 (1 of 2 - PCV) 2013 HPV Vaccines (1 - 3-dose SCD M series) 2021 Covid-19 Vaccine ( - 2024-2 6 season) 2025 02/01/2021, 01/11/2021 Influenza Vaccine (#1) 2025 09/10/2017, 2014 DTaP/Tdap/Td Vaccine (7 - Td or Tdap) 09/29/2027 09/29/2017, 02/02/2016, 03/21/1997, Additional history exists Hepatitis B Screening Completed 01/12/1996 , 01/06/1995, 1994 Medical Devices Explanted Type Area Substation Operator Transforming Device Identifier Shelf Expiration Date Model / Serial / Lot [employer] [id number] 6fr 24cm 145cm Radiopaque Positioner Filiform Flexible Tip - [id number] Implanted:Qty: 1 on 04/26/2021 by Leonela Cruz MD at [facility] Explanted:Qty: 1 on 05/19/2021 by Leonela Cruz MD at [facility] Stent Right: Ureter [employer] [id number] 01/13/2024 [id number] / / [id number] [facility] [id number] Inlay [place] 6fr 24cm Pusher Fluoro Marker Atraumatic Insertion Latex Free - Sn/A - [id number] Implanted:Qty: 1 on 05/19/2021 by Leonela Cruz MD at [facility] Explanted:Qty: 1 on 06/02/2021 by Rosalie Cheung NP Stent Right: Ureter [employer] [id number] 12/01/2025 [id number] / N/A / [id number] Insurance [facility] IDPA [facility] Advance Directives For more information, please contact: [phone] * Full Code (Latest Code Status on File) Date Activated Date Inactivated Comments 04/26/2021 5:19 PM 04/28/2021 3:49 PM Care Teams Mushroom Farmer Relationship Specialty Start Date End Date Erich Kendall DO [address] [place] [address] PCP - General Family Medicine 04/22/25
--- OUTSIDE RECORDS SUMMARY | 2025-04-22 13:57 | XMS_ITS | Clinical Summary ---
Author Organization [facility] [employer] Address [address] [place] [address] Care Team Providers Care Cleaning Associate Name Role Phone Adams Ibarra MD Primary Care Provider [phone] Source Comments [facility] [employer],non-owned Affiliates and Associated Physician Practices is amultiple site organization consisting of ambulatory clinics and hospital sitesin [place], [place], [place] and [place]. This disclosure is being madepursuant to the Care Everywhere program and may not contain all information available regarding this patient. 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 Care Teams Cleaning Associate Relationship Specialty Start Date End Date Adams Ibarra MD [facility] [place] [address] PCP - General 05/09/11
== END 2025-04-22 12:06 | disposition home or self-care (01) ==
PROVIDERS: PCP Family Medicine; Visit Provider Nurse Practitioner Family
DX: N20.2 Calculus of kidney with calculus of ureter (principal); N20.0 Calculus of kidney; R10.9 Unspecified abdominal pain
CPT/HCPCS: 36415; 74176; 80053; 85025

== ENCOUNTER 2025-06-19 10:00 | Outpatient (CLI) | payer OTHER, SELFPAY ==
[2025-06-19 10:22] LABS: Hematocrit 37.3 % (35.0-49.0); Hemoglobin 11.9 g/dL (12.0-15.0); Immature Granulocyte Percent A 0.5 % (0.0-0.0); Lymphocytes Absolute Auto 2.16 K/mm3 (1.10-4.50); Mean Corpuscular HGB Conc 31.9 g/dL (32-36); Mean Corpuscular Hemoglobin 27.7 pg (27.0-31.0); Mean Corpuscular Volume 86.9 fL (78.0-102.0); Nucleated Red Blood Cells Absolute Auto 0.00 K/mm3 (0.00-0.00); Nucleated Red Blood Cells Perc 0.0 % (0-0.0); Platelet Count Result 273 K/mm3 (150-420); Red Blood Count 4.29 M/mm3 (4.20-5.40); White Blood Count 8.3 K/mm3 (4.8-10.8)
[2025-06-19 10:36] LABS: Hemoglobin A1C 4.9 % (<5.7)
[2025-06-19 10:48] LABS: Alanine Aminotransferase 18 U/L (6-35); Albumin Level 4.5 g/dL (3.5-5.1); Alkaline Phosphatase 80 U/L (38-126); Anion Gap 10 mmol/L (4-12); Aspartate Amino Transferase 19 U/L (14-36); Blood Urea Nitrogen 16 mg/dL (7-17); Calcium 9.4 mg/dL (8.4-10.2); Carbon Dioxide 26 mmol/L (22-30); Chloride 107 mmol/L (98-107); Cholesterol 138 mg/dL (0-200); Estimated Glomerular Filt Rate > 60; Glucose 104 mg/dL (65-110); HDL Direct 46 mg/dL; Osmolality Calculated 297 mOsm/kg (285-295); Potassium 4.3 mmol/L (3.4-5.0); Sodium 143 mmol/L (137-145); Total Protein 7.4 g/dL (6.3-8.2); Triglycerides 98 mg/dL (<150)
--- OUTSIDE RECORDS SUMMARY | 2025-06-19 10:50 | XMS_ITS | Clinical Summary ---
Author Organization [facility] Address [address] [place] [id number] Care Team Providers Care City Comptroller Name Role Phone Coryelaine Erich Rodriguezh Primary Care Provider Allergies No known active allergies Medications clonazePAM (KlonoPIN) 1 mg tabletIndications :anxiety Take 1 tablet (1 mg total) by mouth as needed for anxiety 12/09/19 21 Active albuterol HFA (PROVENTIL HFA,VENTOLIN HFA,PROAIR HFA) 90 mcg/actuation inhalerIndication s:Acute Asthma Attack Inhale 2 puffs every 4 (four) hours as needed for wheezing or shortness of breath Active etonogestreL (NEXPLANON) 68 mg implantIndication s: Contraception 1 each (68 mg total) by Not Applicable route continuous Active acetaminophen (TYLENOL) 500 mg tabletIndications :Pain Take 2 tablets (1,000 mg total) by mouth every 6 (six) hours as needed for pain or headaches Active QUEtiapine XR (SEROquel XR) 300 mg 24 hr tablet Take 1 tablet (300 mg total) by mouth nightly Active DULoxetine DR (CYMBALTA) 30 mg capsule Take 1 capsule (30 mg total) by mouth daily Active QUEtiapine (SEROquel) 300 mg tabletIndications :Depression associated with Bipolar Disorder Take 1 tablet (300 mg total) by mouth nightly 025 Discontinu ed(Therapy completed) buPROPion XL (WELLBUTRIN XL) 300 mg 24 hr tabletIndications :major depressive disorder Take 1 tablet (300 mg total) by mouth every morning 025 Discontinu ed(Therapy completed) dextroamphetamine -amphetamine XR (ADDERALL XR) 10 mg 24 hr capsuleIndication s:Attention-Defic it Hyperactivity Disorder Take 1 capsule (10 mg total) by mouth every morning Discontinu ed(Therapy completed) oxybutynin (DITROPAN) 5 mg tablet Take 1 tablet (5 mg total) by mouth 3 (three) times a day as needed (stent pain) for up to 5 days 15 tablet 05/19/20 21 Discontinu ed(Therapy completed) tamsulosin (FLOMAX) 0.4 mg extended release capsule Take 1 capsule (0.4 mg total) by mouth daily for 7 days 7 capsule 05/19/20 21 Discontinu ed(Therapy completed) cephalexin (KEFLEX) 500 mg capsule Take 1 capsule (500 mg total) by mouth 4 (four) times a day for 5 days 20 capsule 05/22/20 Additional Information Patient taking differently:500 mg oral 4 times daily,Indications: Urinary Tract/Genitourinary Infection, Informant: Self, Reported on 05/26/2025 phenazopyridine (Pyridium) 200 mg tablet Take 1 tablet (200 mg total) by mouth 3 (three) times a day for 10 days 30 tablet 05/26/20 25 Discontinu ed(Therapy completed) tamsulosin (FLOMAX) 0.4 mg extended release capsule Take 1 capsule (0.4 mg total) by mouth daily 30 capsule 05/26/20 25 Discontinu ed(Therapy completed) oxyBUTYnin (DITROPAN) 5 mg tablet Take 1 tablet (5 mg total) by mouth 3 (three) times a day 90 tablet 05/26/20 25 Discontinu ed(Therapy completed) ketorolac (TORADOL) 10 mg tablet Take 1 tablet (10 mg total) by mouth every 6 (six) hours as needed for pain 20 tablet 05/26/20 25 Discontinu ed(Therapy completed) Active Problems Problem Noted Date Diagnosed Date Kidney stone 05/22/2025 Acute hypokalemia 05/01/2025 Anxiety disorder, unspecified 05/01/2025 Asthma 05/01/2025 Bipolar 1 disorder, depressed 05/01/2025 Depression 05/01/2025 Hydronephrosis with urinary obstruction due to ureteral calculus 05/01/2025 Hypovolemia dehydration 05/01/2025 Injury of kidney 05/01/2025 Insect bite of right elbow with local reaction 0 05/01/2025 Palpitations 05/01/2025 Panic attack 05/01/2025 Pyelonephritis 05/01/2025 Radicular pain 05/01/2025 Tachycardia 05/01/2025 Urinary tract infection 05/01/2025 Staghorn calculus 02/14/2021 Overview (02/14/2021): Added automatically from request for surgery [id number] Aftercare following surgery 10/10/2019 Tear of medial meniscus of right knee, current 0 09/12/2019 Gait disturbance 03/21/2019 Right foot drop 03/21/2019 Painful orthopaedic hardware 01/15/2019 Donor of stem cell 06/08/2018 Acquired tibial torsion 01/05/2011 Femoral anteversion 11/05/2010 Encounters Date Type Department Care Team Description 06/03/2025 11:20 AM CDT Office Visit [facility] [address] [place] [address] Office [facility] [address] [place] [address] Joselito Mcneal, DO Nephrolithiasis (Primary Dx) 05/27/2025 Telephone [facility] [address] [place] [address] Office [facility] [address] [place] [address] Sherice Toussaint RMA 05/26/2025 2:18 PM CDT Anesthesia Event [facility] Operating Room [address] BEL[place] Amado [address] Nahid Velez MD Wilkinson, Christina A., NP 05/26/2025 1:50 PM CDT - 05/26/2025 4:05 PM CDT Surgery [facility] Operating Room [address] [place] [address] Joselito Mcneal, DO RIGHT URETEROSCOPY 05/26/2025 11:36 AM CDT - 05/26/2025 5:55 PM CDT Hospital Encounter [facility] Operating Room [address] [place] [address] Joselito Mcneal DO Kidney stone Discharge Disposition: Discharge to home or self care 05/22/2025 Orders Only [facility] - [facility] [address]th [place] [address] Joselito Mcneal DO 05/14/2025 Telephone [facility] [address] [place] [address] Teresita Ellis 05/06/2025 Results Follow-Up [facility] ([facility]) - [facility] [address] [place] [address] 11th [place] [address] Body Outside Consult 05/02/2025 3:55 PM CDT - 05/02/2025 11:59 PM CDT Hospital Encounter [facility] [address] [place] [id number] Diagnosis unknown Discharge Disposition: Discharge to home or self care 05/02/2025 Results Follow-Up [facility] ([facility]) - [facility] [address] [place] [address] [address]th [place] [address] Mary Veloz PA Urine culture Urine, clean voided 05/01/2025 3:29 PM CDT - 05/01/2025 11:59 PM CDT Hospital Encounter [address] [address] Kidney stone Discharge Disposition: Discharge to home or self care 05/01/2025 2:00 PM CDT Office Visit [facility] ([facility] - [facility] [address] [place] [address] [address]th [place] [address] Kidney stone (Primary Dx); Chronic right flank pain; Struvite kidney stones from Last 3 Months Surgical History Surgery Date Site/Laterality Comments OSTEOTOMY PROXIMAL FEMORAL 08/07/2010 - 08/06/2011 Bilateral due to bilateral leg bowing KNEE ARTHROSCOPY 09/19/2019 Right HARDWARE REMOVAL 01/30/2019 Right femur hardware removal URETEROSCOPY 08/07/2004 - 08/06/2005 PERCUTANEOUS NEPHROSTOLITHOTOMY 04/26/2021 URETERAL STENT PLACEMENT 01/05/2021 - 02/03/2021 URETEROSCOPY 05/19/2021 Medical History Medical History Date Comments Asthma Hematuria Urinary incontinence Kidney stone Back pain Anxiety Depression Family History Medical History Relation Name Comments Diabetes Father Breast cancer Mother Nephrolithiasis Mother Anesthesia problems Neg Hx Relation Name Status Comments Father Mother Social History Tobacco Use Types Packs/Day Years Used Date Smoking Tobacco: Every Day Cigarettes 1 15.9 Started: 2009 Smokeless Tobacco: Never Tobacco Cessation:Ready to Q uit: No; Counseling Given: No Alcohol Use Standard Drinks/Week Comments Yes 0 (1 standard drink = 0.6 oz pur e alcohol) Social Connection and Isolation Panel Answer Date Recorded In a typical week, how many times do you talk on the phone with family, friends, or neighbors? Three times a week 04/27/20 How often do you get togethe r with friends or relatives? Twice a week 04/27/2021 How often do you attend chur ch or episcopalian services? Never 04/27/2021 Do you belong to any clubs o r organizations such as pentecostalism groups, unions, fraternal or athletic groups, or school groups? No 04/27/2021 How often do you attend meet ings of the clubs or organizations you belong to? Never 04/27/2021 Are you , , di vorced, , never , or living with a partner? Living with partner 04/27/2021 Overall Financial Resource Strain (CARDIA) Answe r [...] things needed for daily living? No 04/27/2021 AUDIT-C Answer Date Recorded Q1: How often do you have a drink containing alc ohol? Monthly or less 05/26/2025 Q2: How many drinks containi ng alcohol do you have on a typical day when you are drinking? 1 or 2 05/26/2025 Q3: How often do you have si x or more drinks on one occasion? Never 05/26/2025 Personal Safety Answer Date Recorded Have you ever been in or are you currently in a harmful physical or emotional relationship or is someone making you feel afraid or unsafe? Denies 05/26/2025 Comments No Sex and Gender Information Value Date Recorded Sex Assigned at Not on file Legal Sex Female 3:35 AM [employer] Gender Identity Not on file Sexual Orientation Not on file Last Filed Vital Signs Vital Sign Reading Time Taken Comments Blood Pressure 118/59 05/26/2025 5:30 PM CDT Pulse 94 05/26/2025 5:35 PM CDT Temperature 37.1 C (98.8 F) 05/26/2025 5:35 PM CDT Respiratory Rate 19 05/26/2025 5:35 PM CDT Oxygen Saturation 99% 05/26/2025 5:35 PM CDT Inhaled Oxygen Concentration - - Weight 68 kg (150 lb) 05/26/2025 12:08 PM CDT Height 165.1 cm (5' 5) 05/26/2025 12:08 PM CDT Body Mass Index 24.96 05/26/2025 12:08 PM CDT Plan of Treatment Health Maintenance Due Date Last Done Comments Cervical Cancer Screening 1995 Depression Screening 1994 Hepatitis C Screening 1994 Varicella Vaccines (1 of 2 - 13+ 2-dose series) 2007 Regular Well Visit/Exam 18-64 2012 Pneumococcal vaccine <65 (1 of 2 - PCV) 2013 HPV Vaccines (1 - 3-dose SCD M series) 2021 Covid-19 Vaccine (3 - 2024-2 6 season) 2025 02/01/2021, 01/11/2021 Influenza Vaccine (#1) 2025 09/10/2017, 2014 DTaP/Tdap/Td Vaccine (7 - Td or Tdap) 09/29/2027 09/29/2017, 02/02/2016, 03/21/1997, Additional history exists Hepatitis B Screening Completed 01/12/1996 , 01/06/1995, 1994 Goals Goal Patient Goal Type Associated Problems Recent Progress Patient-Stated? Author Autogenera marli Goal Care Plan Autogenerated Problem No Imani Crump RN Medical Devices Explanted Type Area Algorithm Developer Device Identifier Shelf Expiration Date Model / Serial / Lot [employer] [id number] 6fr 24cm 145cm Radiopaque Positioner Filiform Flexible Tip - [id number] Implanted:Qty: 1 on 04/26/2021 by Leonela Cruz MD at [facility] Explanted:Qty: 1 on 05/19/2021 by Leonela Cruz MD at [facility] Stent Right: Ureter [employer] [id number] 01/13/2024 [id number] / / [id number] [facility] [id number] Inlay [place] 6fr 24cm Pusher Fluoro Marker Atraumatic Insertion Latex Free - Sn/A - [id number] Implanted:Qty: 1 on 05/19/2021 by Leonela Cruz MD at [facility] Explanted:Qty: 1 on 06/02/2021 by Rosalie Cheung NP Stent Right: Ureter [facility] [id number] 12/01/2025 [id number] / N/A / [id number] Procedures Procedure Name Priority Date/Time Associated Diagnosis Comments FL FLUOROSCOPY < 1 HOUR IP Routine 05/26/2025 4:55 PM CDT SURGICAL PATHOLOGY Routine 05/26/2025 2: 51 PM CDT Kidney stone NJ AN PROCEDURE PLACEHOLDER Routine 05/26/2025 2:37 PM CDT NJ AN ELECTIVE ENDOTRACHEAL AIRWAY Routine 05/26/2025 2:37 PM CDT PLACEMENT STENT - URETERAL 05/26/2025 2:21 PM CDT Kidney stone LASER HOLMIUM 05/26/2025 2:21 PM CDT Kidney stone CYSTOSCOPY 05/26/2025 2:21 PM CDT Kidney stone URETEROSCOPY 05/26/2025 2:21 PM CDT Kidney stone POCT HCG, URINE Routine 05/26/2025 12:[address] BODY OUTSIDE CONSULT Routine 05/02/2025 3:55 PM CDT Diagnosis unknown POCT URINALYSIS DIPSTICK Routine 05/02/2025 2:39 PM CDT Kidney stone Chronic right flank pain Struvite kidney stones URINE CULTURE Routine 05/01/2025 3:29 PM CDT Kidney stone from Last 3 Months Results * FL Fluoroscopy < 1 Hour (05/26/2025 4:55 PM CDT) Narrative [facility] - 05/26/2025 4:56 PM CDT The images from this study are not interpreted by Radiology. Please refer to the physician's procedure / OR operative note. us Joselito Mcneal DO IMG FLUOROSCOPY PROCEDURES Fin al Result [facility] * Surgical pathology (05/26/2025 2:51 PM CDT) Tissue (Bladder Stone) 05/26/2025 2:51 PM CDT Comment:For stone analysis Narrative PATHOLOGY [facility] - 05/30/2025 12:40 PM CDT EPIC results best viewed via link to PDF [facility] [place] [address] Note to Patients: This report may contain a detailed description of human tissue sent by a health care provider to the laboratory for pathologic evaluation. The content of this report is essential for diagnosis and may provide important critical findings. This information may be unfamiliar to patients to review without a medical professional present. It is advised that the patient review this report in the presence of a health care provider who can answer questions and explain the details. SURGICAL PATHOLOGY REPORT FINAL WITH ADDENDUM Patient Name: ANNE ROSARIO Gender: F : 1995 (Age: 30) Address: [address] [place] [address] Hospital #: [id number] Taken:05/26/2025 Received:05/26/2025 Reported: 05/30/2025 Patient Type: [facility] SAME Client [facility] Service: Surgery Location: Physician(s): DO Erich Baptiste D.O. Diagnosis: Right kidney, stone, removal - Lithiasis (gross examination only, sent for chemical analysis) sxst/05/27/2025 12:31 By this signature, I attest that the above diagnosis is based upon my personal examination of the slides(and/or other material indicated in the diagnosis). Valery Marlow M.D., PH.D. Report Electronically Reviewed and Signed Out By Valery Marlow M.D., PH.D. 05/30/2025 12:40:11 History: The patient is a 30-year-old woman presenting with kidney stone. Operative procedure: Right ureteroscopy; cystoscopy; laser holmium; placement stent, ureteral. Specimen(s) Received: A: Right renal stone Gross Description: Received in without fixative, labeled with the patient s identifiers and right renal stone consists of multiple mohr, multifaceted and granular stone(s) measuring 1.7 x 1.4 x 0.6 cm in aggregate. Entirely submitted for chemical analysis. Jar 0. PA(s): Mercedes Hathaway By this signature, I attest that the above diagnosis is based upon my personal examination of the slides(and/or other material). Addenda/Procedures Addendum Ordered:06/06/2025Status:Signed OutAddendum Complete:06/06/2025y:Mickey Gregorio M.D.Addendum Signed Out:06/06/2025 Addendum Diagnosis A digital scan of the original reference lab report will begin on page two of this addendum. By this signature, I attest that the above diagnosis is based upon my personal examination of the slides(and/or other material indicated in the diagnosis). Mickey Gregorio M.D.Report Electronically Reviewed and Signed Out By Mickey Gregorio M.D. 06/06/2025 12:29:15 Microscopic slide review and interpretation for this case was performed at [facility], Department of Surgical Pathology, [address] [facility] [place] [place] [id number], [place] [address] CLIA # [id number] The performance characteristics of some immunohistochemical stains, fluorescence in-situ hybridization tests and immunophenotyping by flow cytometry cited in this report (if any) were determined by the Surgical Pathology and Flow Cytometry Departments at [facility] as part of an ongoing senior quality engineer program and in compliance with federally mandated regulations drawn from the Clinical Laboratory Improvement Act of 1988 (CLIA '88). Some of these tests rely on the use of analyte specific reagents and are subject to specific labeling requirements by the US Food and Drug Administration. Such diagnostic tests may only be performed in a facility that is certified by the Department of Health and Human Services as a high complexity laboratory under CLIA '88. The FDA has determined that such clearance or approval is not necessary. This test is used for clinical purposes. It should not be regarded as investigational or for research. Nevertheless, federal rules concerning the medical use of analyte specific reagents require that the following disclaimer be attached to the report: This test was developed and its performance characteristics determined by the Surgical Pathology and Flow Cytometry Departments of [facility]. It has not been cleared or approved by the U. S. Food and Drug Administration. IMAGES AND SCANNED DOCUMENTS, IF INCLUDED, ONLY VIEWABLE IN PDF VERSION OF REPORT Joselito Mcneal DO LAB PATHOLOGY ORDERABLES Final Result PATHOLOGY [facility] [phone] * NJ AN ELECTIVE ENDOTRACHEAL AIRWAY, NJ AN PROCEDURE PLACEHOLDER (05/26/2025 2:37 PM CDT) Narrative Lamberto Soraya PETRA Hernández - 05/26/2025 2:37 PM CDT LuisSoraya lockwood PETRA Hernández 05/26/2025 2:39 PM Airway Patient location: OR Urgency: elective Indications for airway management: anesthesia Difficult airway: no Airway prep: Preoxygenated: yes Patient position: sniffing Mask difficulty assessment: 1 - vent by mask Spontaneous ventilation during airway: absent Sedation level during airway: GA Final airway details: Final airway type: endotracheal airway Tube type: ETT ETT size: 7.0 mm Cuffed: yes Technique used for successful ETT placement: video laryngoscopy Devices/Methods used in placement: intubating stylet Blade type: Magdiel Video blade type: Graham Blade size: 3 Cormack-Lehane (video): grade I - full view of glottis Cuff volume: 7 mL Cuff inflated with: air ETT to teeth: 20 cm Placement verified by: auscultation Airway secured with: silk tape Additional comments: Poor dentition prior to intubation. Graham 3 utilized. Atraumatic, grade 1 view. us Gwyn Tillman MD ANESTHESIA ORDERABLES Final Result * POCT hCG, urine (05/26/2025 12:04 PM CDT) HCG, ur, POC Negative Negative Lot Number [id number] QC Backgroud Clear Acceptable QC Control Line Acceptable Urine 05/26/2025 12:0 4 PM CDT us Gwyn Tillman MD POINT OF CARE TEST ORDERABLE S Final Result * CT Body Outside Consult (05/02/2025 3:55 PM CDT) Anatomical Region Laterality Modality Body N/A Computed Tomogra phy 05/04/2025 12:5 2 PM CDT Impressions 05/04/2025 12:52 PM CDT 1. Removal of right double-J nephroureteral stent with interval increase in stone burden that is nonobstructing in the mid to lower right kidney. Tiny nonobstructing mid zone left renal stone. The findings, conclusions and recommendations within this report do not replace the initial findings, conclusions and recommendations made at the facility where the study was performed based upon the imaging and clinical condition at that time. Comparison with the prior report and clinical history is necessary. The provided images may or may not represent the eagle source data set and thus may contain changes that may lower the accuracy of this second-opinion interpretation. Electronically signed by: Rohan Jaime M.D. Narrative 05/04/2025 12:52 PM CDT EXAMINATION: RADIOLOGY CONSULTATION ON OUTSIDE IMAGING STUDY STUDY INITIALLY PERFORMED: 04/22/2025 at [facility]. TYPE OF STUDY: Multiple CT images of the abdomen and pelvis without intravenous contrast are provided at the time of this interpretation. CONTRAST ROUTE: No contrast was administered. The protocol was adequate to address the clinical question. The outside final report was not available at the time of this second opinion interpretation. TYPE OF CONSULTATION: Consult on outside imaging study with images submitted through Outside Image Sharing Service DATE OF CONSULTATION: 05/04/2025 12:49 PM HISTORY: Renal stones COMPARISON: 04/27/2021 FINDINGS: There is been interval increase in stone burden in the right kidney with resolution of hydronephrosis and removal of the right double-J nephro stent. The largest stone is seen in the lower pole and measures up to 9 mm. There are additional less than 4 mm sized stones in the mid to lower right kidney. No ureteral stones. No bladder stones. There is a tiny 2 mm punctate nonobstructing stone in the mid zone left kidney. No intrahepatic lesions or biliary ductal dilatation. Gallbladder is normal. Spleen is normal. Pancreas is normal. No adnexal renal lesions. No abdominal or pelvic lymphadenopathy. Uterus is normal. Ovaries are normal for age. No free intraperitoneal fluid or gas. The bowel is normal in caliber without evidence of any focal wall thickening or obstruction. Lung bases are clear. Bone windows demonstrate no lytic or blastic lesions. Procedure Note Rohan Jaime MD - 05/04/2025 EXAMINATION: RADIOLOGY CONSULTATION ON OUTSIDE IMAGING STUDY STUDY INITIALLY PERFORMED: 04/22/2025 at [facility]. TYPE OF STUDY: Multiple CT images of the abdomen and pelvis without intravenous contrast are provided at the time of this interpretation. CONTRAST ROUTE: No contrast was administered. The protocol was adequate to address the clinical question. The outside final report was not available at the time of this second opinion interpretation. TYPE OF CONSULTATION: Consult on outside imaging study with images submitted through Outside Image Sharing Service DATE OF CONSULTATION: 05/04/2025 12:49 PM HISTORY: Renal stones COMPARISON: 04/27/2021 FINDINGS: There is been interval increase in stone burden in the right kidney with resolution of hydronephrosis and removal of the right double-J nephro stent. The largest stone is seen in the lower pole and measures up to 9 mm. There are additional less than 4 mm sized stones in the mid to lower right kidney. No ureteral stones. No bladder stones. There is a tiny 2 mm punctate nonobstructing stone in the mid zone left kidney. No intrahepatic lesions or biliary ductal dilatation. Gallbladder is normal. Spleen is normal. Pancreas is normal. No adnexal renal lesions. No abdominal or pelvic lymphadenopathy. Uterus is normal. Ovaries are normal for age. No free intraperitoneal fluid or gas. The bowel is normal in caliber without evidence of any focal wall thickening or obstruction. Lung bases are clear. Bone windows demonstrate no lytic or blastic lesions. IMPRESSION: 1. Removal of right double-J nephroureteral stent with interval increase in stone burden that is nonobstructing in the mid to lower right kidney. Tiny nonobstructing mid zone left renal stone. The findings, conclusions and recommendations within this report do not replace the initial findings, conclusions and recommendations made at the facility where the study was performed based upon the imaging and clinical condition at that time. Comparison with the prior report and clinical history is necessary. The provided images may or may not represent the eagle source data set and thus may contain changes that may lower the accuracy of this second-opinion interpretation. Electronically signed by: Rohan Jaime M.D. Mary SEQUEIRA IM CT PROCEDURES Fin al Result * (ABNORMAL) POCT urinalysis dipstick (05/02/2025 2:39 PM CDT) Color, Urine, POC Yellow Clarity, ur, POC Clear Clear Glucose, ur, POC Negative Negative Bilirubin, ur, POC Negative Negative Ketones, ur, POC Negative Negative Blood, ur, POC 3+(A) Negative pH, ur, POC 6.0 5.0 - 8.0 Protein, ur, POC 2+(A) Negative Nitrite, ur, POC Positive(A) Negative Leukocytes, ur, POC 2+(A) Negative Lot Number X Comment:X Urine 05/02/2025 2:39 PM CDT Mary SEQUEIRA POINT OF CARE TEST OR DERABLES Final Result * (ABNORMAL) Urine culture Urine, clean voided (05/01/2025 3:29 PM CDT) Report Final Report: Greater than or equal to 100,000 colonies/mL of Escherichia coli Plus growth of clinically insignificant bacterial rochelle. (.) Organism ESCHERICHIA COLI [facility] Organism PLUS GROWTH OF CLINICALLY INSIGNIFICANT ROCHELLE. [facility] Urine, clean voided 05/01/2025 3:29 PM CDT 05/01/2025 6:01 PM CDT Narrative [facility] - 05/03/2025 11:44 AM CDT Testing performed by [facility] ([phone]) Organism Antibiotic Method Susceptibility Escherichia coli Ampicillin INTERPRETATION Resistant Escherichia coli Cefazolin INTERPRETATION Susceptible Escherichia coli Nitrofurantoin INTERPRETATION Susceptible Escherichia coli Gentamicin INTERPRETATION Susceptible Escherichia coli Trimethoprim with Sulfamethoxazole IN TERPRETATION Susceptible Escherichia coli Meropenem INTERPRETATION Susceptible Escherichia coli Cefepime INTERPRETATION Susceptible Escherichia coli Ciprofloxacin INTERPRETATION Susceptible Escherichia coli Ceftazidime INTERPRETATION Susceptible Escherichia coli Ceftriaxone INTERPRETATION Susceptible Escherichia coli Piperacillin/Tazobactam INTERPRETATIO N Susceptible Escherichia coli Cephalexin INTERPRETATION Susceptible Escherichia coli Cefuroxime-axetil INTERPRETATION Susceptible Escherichia coli Cefdinir INTERPRETATION Susceptible [facility]CRO[facility] - NERAL ORDERABLES Final Result [facility] Department [place] [address] from Last 3 Months Additional Health Concerns Active Problems Noted Date Diagnosed Date Autogenerated Problem 05/26/2025 Insurance [facility] Advance Directives For more information, please contact: [phone] * Full Code (Latest Code Status on File) Date Activated Date Inactivated Comments 04/26/2021 5:19 PM 04/28/2021 3:49 PM Care Teams City Comptroller Relationship Specialty Start Date End Date Erich Kendall DO [address] [place] [address] PCP - General Family Medicine 04/22/25
--- OUTSIDE RECORDS SUMMARY | 2025-06-19 10:50 | XMS_ITS | Encounter Summary ---
Author Organization [facility] Address [address] [facility] [address] [place] [address] Phone Care Team Providers Care Data Integrity Analyst Name Role Phone Erich Kendall DO Primary Care Provider Encounter Details Date Type Department Care Team (Late st Contact Info) Description 05/06/2025 Results Follow-Up [facility] Advanced [facility] Medicine Urology [facility] [address] [place] [address] [place] [address] Mary Veloz PA [address] [facility] [place] [address] CT Body Outside Consult Social History Tobacco Use Types Packs/Day Years [...] often do you attend chur ch or episcopal services? Never 04/27/2021 Do you belong to any clubs o r organizations such as scientology groups, unions, fraternal or athletic groups, or [...] things needed for daily living? 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
--- OUTSIDE RECORDS SUMMARY | 2025-06-19 10:50 | XMS_ITS | Clinical Summary ---
Author Organization [facility] Address [address] [place] [address] Care Team Providers Care Middle School Baseball Coach Name Role Phone Adams Ibarra MD Primary Care Provider [phone] Source Comments [facility],non-owned Affiliates and Associated Physician Practices is amultiple site organization consisting of ambulatory clinics and hospital sitesin [place], [place], [place] and [place]. This disclosure is being madepursuant to the Care Everywhere program and may not contain all information available regarding this patient. 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
--- OUTSIDE RECORDS SUMMARY | 2025-06-19 10:50 | XMS_ITS | Encounter Summary ---
Author Organization [facility] Address [address] [facility] [address] [place] [address] Phone Care Team Providers Care Legal Word Processor Name Role Phone Erich Kendall DO Primary Care Provider Encounter Details Date Type Department Care Team (Late st Contact Info) Description 05/02/2025 Results Follow-Up [facility] Medicine Urology [facility] [address] [place] [address] [place] [address] Mary Veloz PA [address] [facility] [place] [address] Urine culture Urine, clean voided Social History Tobacco Use Types Packs/Day Years [...] any clubs o r organizations such as mosque groups, unions, fraternal or athletic groups, or [...] on file 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 Gender Identity Not on file Sexual Orientation Not on file documented as of this encounter Ordered Prescriptions Prescription Sig Dispense Quantity Refills Last Filled Start Date End Date ciprofloxacin (CIPRO) 500 mg tabletIndications: Urinary Tract/Genitourinar y Infection Take 1 tablet (500 mg total) by mouth 2 (two) times a day for 7 days 14 tablet 05/06/2025 05/13/2025 documented in this encounter Plan of Treatment Not on file documented as of this encounter Visit Diagnoses Diagnosis Struvite kidney stones- Primary Calculus of kidney UTI (urinary tract infection), bacterial documented in this encounter Care Teams Legal Word Processor Relationship Specialty Start Date End Date Eirch Kendall DO [address] [place] [address] PCP - General Family Medicine 04/22/25 documented as of this encounter
--- OUTSIDE RECORDS SUMMARY | 2025-06-19 10:50 | XMS_ITS | Clinical Summary ---
Author Organization [facility] Address [address] [place] [address] Care Team Providers Care Market Analysis Director Name Role Phone Adams Ibarra MD Primary Care Provider [phone] Swapnil Vazquez MD Unavailable [phone] George Mcintosh MD Unavailable Unavailable [place]Fern[place] MD Unavailable [phone] Allergies No known active allergies Medications albuterol sulfate HFA (VENTOLIN HFA) 108 (90 Base) MCG/ACT inhaler Inhale 2 puffs into the lungs every 4 (four) hours as needed for Wheezing. Active metoprolol succinate ER 25 MG 24 hr tablet Take 25 mg by mouth daily. Active clonazePAM 1 MG tablet Take 1 mg by mouth nightly as needed for Anxiety. 1 9 Active hydrOXYzine 25 MG tablet Take 25 mg by mouth 3 (three) times a day. 1 9 Active Etonogestrel (NEXPLANON) 68 MG Implant 1 each by Implant route once. Active QUEtiapine 100 MG tablet Take 400 mg by mouth nightly at bedtime. Active acetaminophen 325 MG tablet Take 2 tablets (650 mg total) by mouth every 4 (four) hours as needed for Pain. For Mild Pain or Fever 9 Active Misc. Devices (CANE OFFSET HANDLE) MiscIndications:Pa inful orthopaedic hardware 1 each by Does not apply route once for 1 dose. Use as needed for ambulation long distances 1 each 9 Active estradiol 2 MG tablet Take 2 mg by mouth daily. 0 Active buPROPion XL 150 MG 24 hr tablet Take 150 mg by mouth daily. 0 Active buPROPion XL 300 MG 24 hr tablet Take 300 mg by mouth daily. 0 Active QUEtiapine 400 MG tablet 0 Active ondansetron 4 MG disintegrating tablet Take 1 tablet (4 mg total) by mouth every 6 (six) hours as needed. 10 tablet 0 Active Active Problems Problem Noted Date Diagnosed Date Aftercare following surgery 10/10/2019 Tear of medial meniscus of r ight knee, current, unspecified tear type, subsequent encounter 09/12/2019 Right foot drop 03/21/2019 Gait disturbance 03/21/2019 Painful orthopaedic hardware 01/15/2019 Tachycardia Panic attack Palpitations Bipolar depression Asthma, unspecified asthma s everity, unspecified whether complicated, unspecified whether persistent Anxiety disorder, unspecified Anemia, deficiency Family History Medical History Relation Comments Colon Cancer Maternal Grandfather Cancer Mother Colon Cancer Paternal Grandmother Relation Status Comments Father Alive Maternal Grandfather (Age 62) Mother Alive Paternal Grandmother (Age 69) Social History Tobacco Use Types Packs/Day Years Used Date Smoking Tobacco: Every Day Cigarettes 0.5 10 Smokeless Tobacco: Never Alcohol Use Standard Drinks/Week Comments No 0 (1 standard drink = 0.6 oz pur e alcohol) AUDIT-C Answer Date Recorded Frequency of Alcohol Consumption Never 12/07/2018 Average Number of Drinks Not on file 019 Frequency of Binge Drinking Not on file 10/2018 Comments No Sex and Gender Information Value Date Recorded Sex Assigned at Not on file Legal Sex Female 11:16 PM THERAPIST SPEECH Gender Identity Not on file Sexual Orientation Not on file Last Filed Vital Signs Vital Sign Reading Time Taken Comments Blood Pressure 111/73 02/26/2020 4:40 PM CDT Pulse 106 02/26/2020 4:40 PM CDT Temperature 36.7 C (98.1 F) 02/26/2020 3:36 PM CDT Respiratory Rate 18 02/26/2020 4:40 PM CDT Oxygen Saturation 100% 02/26/2020 4:40 PM CDT Inhaled Oxygen Concentration - - Weight 63.5 kg (140 lb) 02/26/2020 3:36 PM CDT Height 167.6 cm (5' 6) 02/26/2020 3:36 PM CDT Body Mass Index 22.6 02/26/2020 3:36 PM CDT Plan of Treatment Health Maintenance Due Date Last Done Comments Cervical Cancer Screening Pa p Smear (Age 30 to 64) Every 3 Years 1994 Annual Physical 1997 DTaP, Tdap and Td Vaccines ( 1 - Tdap) 2013 Hepatitis B Vaccines (1 of 3 - 19+ 3-dose series) 2013 Pneumococcal Vaccine: Pediat rics (0 to 5 Years) and At-Risk Patients (6 to 49 Years) (1 of 2 - PCV) 2013 HPV Vaccines (1 - 3-dose SCD M series) 2021 Cervical Cancer Screening Pa p with HPV Testing (Age 30 to 64) Every 5 Years 2024 Cervical Cancer Screening with HPV 2024 COVID-19 Vaccine (2024-2 6 season) 2025 Influenza Adult (#1) 2025 09/10/2017 Hepatitis C Completed 06/26/2017 Hepatitis A Vaccines Aged Out No long er eligible based on patient's age to complete this topic Meningococcal B Vaccine Aged Out No l onger eligible based on patient's age to complete this topic Meningococcal Vaccine Aged Out No saira marcelina eligible based on patient's age to complete this topic RSV Immunizations Under 20 Months Aged Out No longer eligible based on patient's age to complete this topic Procedures Procedure Name Priority Date/Time Associated Diagnosis Comments HEPATITIS C ANTIBODY Routine 06/26/2017 4:30 PM THERAPIST SPEECH from Last 3 Months or Most Recently Relevant to Health Maintenance Results * HEPATITIS C ANTIBODY (06/26/2017 4:30 PM THERAPIST SPEECH) HEPATITIS C AB NON-REACTI VE NON-REACT ROMEO 06/28/2017 12:01 PM THERAPIST SPEECH [facility] Comment: ANTIBODIES TO HCV NOT DETECTED. DOES NOT EXCLUDE THE POSSIBILITY OF EXPOSURE TO HCV. SERUM OR PLASMA SPECIMEN / Unknown 06/26/2017 4:30 PM THERAPIST SPEECH 06/26/2017 4:39 PM THERAPIST SPEECH us Generic Conversion Md [facility] Final R esult [facility] [address] [place] [address], [id number] from Last 3 Months or Most Recently Relevant to Health Maintenance Insurance [facility] Advance Directives Documents on File Type Date Recorded Patient Bathhouse Attendant Expl anation Legal Documents 02/28/2018 12:00 AM PETITI ON FOR INVOLUNTARY / JUDICIAL ADM Care Teams Market Analysis Director Relationship Specialty Start Date End Date Adams Ibarra MD [address] [place] [address] PCP - General FAMILY PRACTICE 12/06/18 Swapnil Vazquez MD [address] [place] [phone] [place] Retail Financial Analyst CARDIOVASCULAR DISEASE 12/06/18 George Mcintosh MD [address] [place] [address] Consulting Physician CARDIOVASCULAR DISEASE 01/07/19 Fernando Alcantar MD [address] [place] [address] ORTHOPAEDIC SURGERY 01/22/19
--- OUTSIDE RECORDS SUMMARY | 2025-06-19 10:51 | XMS_ITS | Encounter Summary ---
Author Organization [facility] Address [address] [place] [address] Care Team Providers Care Forest Fire Control Officer Name Role Phone Adams Ibarra MD Primary Care Provider [phone] Swapnil Vazquez MD Unavailable [phone] George Mcintosh MD Unavailable Unavailable Fernando Alcantar MD Unavailable [phone] Encounter Details Date Type Department Care Team (Late st Contact Info) Description 01/12/2019 Abstract [facility] CONVERSION [address] [place] [address] , Generic MD Darnell Social History Tobacco Use Types Packs/Day Years Used Date Smoking Tobacco: Every Day Alcohol Use Standard Drinks/Week Comments No 0 (1 standard drink = 0.6 oz pur e alcohol) AUDIT-C Answer Date Recorded Frequency of Alcohol Consumption Never 12/07/2018 Average Number of Drinks Not on file 019 Frequency of Binge Drinking Not on file 10/2018 Comments Unknown Sex and Gender Information Value Date Recorded Sex Assigned at Not on file Legal Sex Female 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 Gender Identity Not on file Sexual Orientation Not on file documented as of this encounter Plan of Treatment Not on file documented as of this encounter Visit Diagnoses Not on filedocumented in this encounter Care Teams Forest Fire Control Officer Relationship Specialty Start Date End Date Adams Ibarra MD [address] [place] [id number] PCP - General FAMILY PRACTICE 12/06/18 Swapnil Vazquez MD [address] [place] [phone] [place] Digital Marketing Consultant CARDIOVASCULAR DISEASE 12/06/18 George Mcintosh MD [address] [place] [address] Consulting Physician CARDIOVASCULAR DISEASE 01/07/19 Fernando Alcantar MD [address] [place] [address] ORTHOPAEDIC SURGERY 01/22/19 documented as of this encounter
[2025-06-24 16:17] LABS: Bilirubin,Total 0.3 mg/dL (0.2-1.3)
== END 2025-06-19 10:01 | disposition home or self-care (01) ==
PROVIDERS: PCP Family Medicine
DX: F31.32 Bipolar disorder, current episode depressed, moderate (principal); Z79.899 Other long term (current) drug therapy
CPT/HCPCS: 36415; 80053; 80061; 83036; 85025